=== PATIENT | male | born 1955 | race Caucasian/White ===

== ENCOUNTER 2020-02-18 08:54 | Outpatient (REF) | payer MEDICARE, MEDICAID, SELFPAY ==
[2020-02-18 11:34] LABS: Glucose Urine UA NEG (NEG); Leukocyte Esterase Urine NEG (NEG); Nitrite Urine NEG (NEG); Urine Blood NEG (NEG); Urine Ketones NEG (NEG); Urine Protein 2+ MG/DL (NEG-TRACE)
[2020-02-18 11:36] LABS: Anion Gap 12 (12-20); Blood Urea Nitrogen 13 mg/dL (9-16); Carbon Dioxide 30 mmol/L (22-29); Chloride 103 mmol/L (96-108); Estimated Glomerular Filt Rate > 60; Phosphorus 2.9 mg/dL (2.7-4.5); Potassium 4.2 mmol/l (3.3-5.1); Sodium 141 mmol/L (135-145)
[2020-02-18 11:51] LABS: Appearance Urine HAZY; Color Urine YELLOW
[2020-02-18 12:10] LABS: Renal w Reflex Lab Use Only Order verified
[2020-02-18 12:23] LABS: Microalbum/Creatinine Ratio Ur 882.8 ug/mg cr
[2020-02-18 13:34] LABS: RBC Urine 0 /HPF (0); Sperm Urine NOTED; WBC Urine 0-2 /HPF (0-4)
== END 2020-02-18 08:55 | disposition home or self-care (01) ==
LOC: HO.LAB 08:54
PROVIDERS: PCP Family Medicine; Visit Provider Internal Medicine Nephrology
DX: E11.21 Type 2 diabetes mellitus with diabetic nephropathy (principal); R80.9 Proteinuria, unspecified
CPT/HCPCS: 80051; 81001; 81003; 82043; 82310; 82565; 84100; 84520

== ENCOUNTER 2020-02-29 09:21 | Outpatient (REF) | payer MEDICARE, MEDICAID, SELFPAY ==
[2020-02-29 11:34] LABS: Anion Gap 12 (12-20); Blood Urea Nitrogen 14 mg/dL (9-16); Calcium 8.8 mg/dL (8.4-10.2); Carbon Dioxide 29 mmol/L (22-29); Chloride 103 mmol/L (96-108); Estimated Glomerular Filt Rate > 60; Glucose Random 159 mg/dL (60-115); Potassium 4.4 mmol/l (3.3-5.1); Sodium 140 mmol/L (135-145)
== END 2020-02-29 09:22 | disposition home or self-care (01) ==
LOC: HO.LAB 09:21
PROVIDERS: PCP Family Medicine; Referring Provider Family Medicine; Visit Provider Internal Medicine Cardiovascular Disease
DX: I51.3 Intracardiac thrombosis, not elsewhere classified (principal); Z45.02 Encounter for adjustment and management of automatic implantable cardiac defibrillator; I48.0 Paroxysmal atrial fibrillation; Z86.79 Personal history of other diseases of the circulatory system
CPT/HCPCS: 80048; 99212

== ENCOUNTER 2020-04-05 08:44 | Outpatient (REF) | payer MEDICARE, MEDICAID, SELFPAY ==
[2020-04-05 10:08] LABS: Estimated Average Glucose 194 mg/dL; Hemoglobin A1c % 8.4 %
[2020-04-05 10:17] LABS: Alanine Aminotransferase 15 U/L (0-40); Albumin Level 4.2 g/dL (3.5-5.0); Alkaline Phosphatase 68 U/L (39-117); Anion Gap 12 (12-20); Aspartate Amino Transferase 15 U/L (5-37); Bilirubin Total 0.6 mg/dL (0.0-1.0); Blood Urea Nitrogen 16 mg/dL (9-16); Calcium 9.2 mg/dL (8.4-10.2); Carbon Dioxide 29 mmol/L (22-29); Chloride 102 mmol/L (96-108); Cholesterol 93 mg/dL; Estimated Glomerular Filt Rate > 60; Glucose Random 160 mg/dL (60-115); HDL Cholesterol 35 mg/dL; LDL Cholesterol Calculated 38 mg/dl; Potassium 4.4 mmol/l (3.3-5.1); Sodium 139 mmol/L (135-145); Total Protein 7.1 g/dL (6.5-8.0); Triglycerides 104 mg/dL
[2020-04-05 10:45] LABS: Creatinine Urine 76.83 mg/dL
[2020-04-05 10:57] LABS: Microalbum/Creatinine Ratio Ur 905.8 ug/mg cr
[2020-04-07 04:17] LABS: LDL Cholesterol Direct 40 mg/dL (<100)
== END 2020-04-05 08:45 | disposition home or self-care (01) ==
LOC: HO.LAB 08:44
PROVIDERS: PCP Family Medicine; Visit Provider Internal Medicine
DX: E11.65 Type 2 diabetes mellitus with hyperglycemia (principal); E78.5 Hyperlipidemia, unspecified; I10 Essential (primary) hypertension
CPT/HCPCS: 80053; 80061; 82043; 83036; 83721

== ENCOUNTER → 2020-04-18 08:24 | Outpatient (BNVA) | payer MEDICARE, MEDICAID, SELFPAY | PROVIDERS: PCP Family Medicine; Referring Provider Family Medicine; Visit Provider Internal Medicine | DX: Z13.89 Encounter for screening for other disorder (principal) | CPT/HCPCS: Q3014 ==

== ENCOUNTER → 2020-07-04 10:58 | Outpatient (BNVA) | payer MEDICARE, MEDICAID, SELFPAY | PROVIDERS: PCP Family Medicine; Visit Provider Internal Medicine | DX: Z13.89 Encounter for screening for other disorder (principal) | CPT/HCPCS: Q3014 ==

== ENCOUNTER 2020-07-05 08:33 | Outpatient (REF) | payer MEDICARE, MEDICAID, SELFPAY ==
[2020-07-05 09:30] LABS: Estimated Average Glucose 232 mg/dL; Hemoglobin A1c % 9.7 %
[2020-07-05 09:59] LABS: Alanine Aminotransferase 13 U/L (0-40); Albumin Level 3.9 g/dL (3.5-5.0); Alkaline Phosphatase 81 U/L (39-117); Anion Gap 11 (12-20); Aspartate Amino Transferase 15 U/L (5-37); Bilirubin Total 0.5 mg/dL (0.0-1.0); Blood Urea Nitrogen 20 mg/dL (9-16); Calcium 8.9 mg/dL (8.4-10.2); Carbon Dioxide 30 mmol/L (22-29); Chloride 105 mmol/L (96-108); Cholesterol 89 mg/dL; Estimated Glomerular Filt Rate > 60; Glucose Random 131 mg/dL (60-115); HDL Cholesterol 32 mg/dL; LDL Cholesterol Calculated 39 mg/dl; Potassium 4.2 mmol/L (3.3-5.1); Sodium 142 mmol/L (135-145); Total Protein 6.7 g/dL (6.5-8.0); Triglycerides 91 mg/dL
[2020-07-05 10:18] LABS: Vitamin D 25-OH Total 28.2 ng/mL (>30)
[2020-07-05 10:26] LABS: Creatinine Urine 146.09 mg/dL
[2020-07-05 10:41] LABS: Microalbum/Creatinine Ratio Ur 753.6 ug/mg cr
[2020-07-06 12:56] LABS: LDL Cholesterol Direct 37 mg/dL (<100)
== END 2020-07-05 08:34 | disposition home or self-care (01) ==
LOC: HO.LAB 08:33
PROVIDERS: Absent Provider Internal Medicine; PCP Family Medicine; Visit Provider Internal Medicine Cardiovascular Disease
DX: E11.65 Type 2 diabetes mellitus with hyperglycemia (principal); E55.9 Vitamin D deficiency, unspecified; Z79.4 Long term (current) use of insulin
CPT/HCPCS: 36415; 80053; 80061; 82043; 82306; 83036; 83721

== ENCOUNTER → 2020-07-06 09:05 | Outpatient (REF) | payer MEDICARE, MEDICAID, SELFPAY ==
--- NOTE | 2020-07-06 09:09 | CA_ITS ---
Transthoracic Echocardiogram Patient (Last, First, Middle): Shaka Kang A Gender: Male Date of : 1955 Age: 65 Procedure Date: 07/06/2020 Procedure Type: Transthoracic Echocardiogram Location: OP Height: 182.88 cm Weight: 58.97 kg BSA: 1.77 m2 Heart Rate: bpm BP: 126 / 80 mmHg Brush Hand: ROD Referring MD: Gabriel Cassidy MD Tariff Clerk: Gabriel Cassidy MD Symptoms: I51.3 - Intracardiac thrombosis, not elsewhere classified Study Quality: Good ECG Rhythm: Sinus Conclusions: - 1. Normal LV systolic function with grade 1 diastolic dysfunction 2. Normal cardiac valvular Doppler 3. Normal RV systolic pressure 4. No pericardial effusion Findings Left Ventricle Normal left ventricular size, thickness, and systolic function. The visually estimated ejection fraction is between 55-60%. Spectral Doppler is indicative of an impaired relaxation filling pattern. E/E prime ratio is <8, consistent with normal filling pressures. Evidence suggests grade I (mild) diastolic dysfunction. Right Ventricle Normal right ventricular cavity size and systolic function. There is an ICD wire seen in the right ventricle. Atria Both atria are normal in size. There is no evidence of interatrial shunt. Aortic Valve Normal aortic valve structure and function. There is no aortic valve stenosis. There is no aortic valve regurgitation. Mitral Valve Normal mitral valve structure and function. There is trace mitral valve regurgitation. There is no mitral valve stenosis. Pulmonic Valve The pulmonic valve is likely normal. There is trace pulmonic valve regurgitation. Tricuspid Valve Normal tricuspid valve structure. There is mild tricuspid valve regurgitation. The right ventricular systolic pressure is normal. The right ventricular systolic pressure is 13 mmHg. Normal right atrial pressure. There is no evidence of pulmonary hypertension. Great Vessels All visible segments of the aorta are normal in size. The pulmonary artery was not well visualized. Venous The inferior vena cava is normal in size and collapses greater than 50% with inspiration. Pericardium/Pleural There is no evidence of pericardial effusion. Prior Study Comparison No significant change compared to prior study dated: 10/20/2019. Measurements 2D Systolic Function EF 4C: 66.00 >55% EF 2C: 37.20 >55% EF BiP: 55.10 >55% Tricuspid Valve TR Pk Yung: 1.56 TR Pk Grad: 10.00 RA Press: 3.00 RVSP: 13.00 Updated in Other Vendor System with Status of Final Gabriel Cassidy MD electronically signed on 07/06/2020 4:27:24 PM with status of Final
== END ==
LOC: HO.CARD 09:05
PROVIDERS: PCP Family Medicine; Visit Provider Internal Medicine Cardiovascular Disease
DX: I48.0 Paroxysmal atrial fibrillation (principal); I51.3 Intracardiac thrombosis, not elsewhere classified; Z95.810 Presence of automatic (implantable) cardiac defibrillator
CPT/HCPCS: 93308

== ENCOUNTER 2020-08-26 08:17 | Outpatient (REF) | payer MEDICARE, MEDICAID, SELFPAY ==
[2020-08-26 10:16] LABS: Anion Gap 12 (12-20); Blood Urea Nitrogen 11 mg/dL (9-16); Calcium 8.7 mg/dL (8.4-10.2); Carbon Dioxide 29 mmol/L (22-29); Chloride 103 mmol/L (96-108); Estimated Glomerular Filt Rate > 60; Phosphorus 2.9 mg/dL (2.7-4.5); Potassium 4.1 mmol/L (3.3-5.1); Sodium 140 mmol/L (135-145)
[2020-08-26 11:17] LABS: Creatinine Urine 58.91 mg/dL; Microalbum/Creatinine Ratio Ur 1281.6 ug/mg cr
[2020-08-26 13:34] LABS: Renal w Reflex Lab Use Only Order verified
== END 2020-08-26 08:18 | disposition home or self-care (01) ==
LOC: HO.LAB 08:17
PROVIDERS: Absent Provider Internal Medicine Nephrology; PCP Family Medicine; Visit Provider Internal Medicine
DX: R80.9 Proteinuria, unspecified (principal); E11.21 Type 2 diabetes mellitus with diabetic nephropathy
CPT/HCPCS: 36415; 80051; 82043; 82310; 82565; 84100; 84520

== ENCOUNTER → 2020-09-05 08:44 | Outpatient (BNVA) | payer MEDICARE, MEDICAID, SELFPAY | PROVIDERS: PCP Family Medicine; Visit Provider Internal Medicine Cardiovascular Disease | DX: Z45.02 Encounter for adjustment and management of automatic implantable cardiac defibrillator (principal); I48.0 Paroxysmal atrial fibrillation; Z86.79 Personal history of other diseases of the circulatory system | CPT/HCPCS: 99212 ==

== ENCOUNTER → 2020-10-05 12:18 | Outpatient (BNVA) | payer MEDICARE, MEDICAID, SELFPAY | PROVIDERS: PCP Family Medicine; Visit Provider Internal Medicine | DX: E11.65 Type 2 diabetes mellitus with hyperglycemia (principal); Z79.4 Long term (current) use of insulin; E78.5 Hyperlipidemia, unspecified; E55.9 Vitamin D deficiency, unspecified; I10 Essential (primary) hypertension | CPT/HCPCS: 82947; 83036; 99212 ==

== ENCOUNTER 2020-10-13 08:33 | Outpatient (REF) | payer MEDICARE, MEDICAID, SELFPAY ==
[2020-10-13 10:11] LABS: Estimated Average Glucose 237 mg/dL; Hemoglobin A1c % 9.9 %
[2020-10-13 10:35] LABS: Alanine Aminotransferase 19 U/L (0-40); Albumin Level 4.5 g/dL (3.5-5.0); Alkaline Phosphatase 75 U/L (39-117); Anion Gap 11 (12-20); Aspartate Amino Transferase 20 U/L (5-37); Bilirubin Total 0.3 mg/dL (0.0-1.0); Blood Urea Nitrogen 13 mg/dL (9-16); Calcium 9.5 mg/dL (8.4-10.2); Carbon Dioxide 29 mmol/L (22-29); Chloride 107 mmol/L (96-108); Estimated Glomerular Filt Rate > 60; Glucose Random 139 mg/dL (60-115); Potassium 5.1 mmol/L (3.3-5.1); Sodium 142 mmol/L (135-145); Total Protein 7.3 g/dL (6.5-8.0)
== END 2020-10-13 08:34 | disposition home or self-care (01) ==
LOC: HO.LAB 08:33
PROVIDERS: PCP Family Medicine; Visit Provider Internal Medicine
DX: E11.65 Type 2 diabetes mellitus with hyperglycemia (principal); Z79.4 Long term (current) use of insulin
CPT/HCPCS: 36415; 80053; 83036

== ENCOUNTER 2020-12-01 12:47 | Outpatient (RCR) | payer MEDICARE, MEDICAID, SELFPAY | END 2020-12-13 15:10 | disposition home or self-care (01) | LOC: HO.WCC 12:47 | PROVIDERS: PCP Family Medicine; Visit Provider Surgery | DX: L89.621 Pressure ulcer of left heel, stage 1 (principal) | CPT/HCPCS: 99212 ==

== ENCOUNTER 2021-01-05 07:35 | Outpatient (REF) | payer MEDICARE, MEDICAID, SELFPAY ==
[2021-01-05 08:26] LABS: Alanine Aminotransferase 19 U/L (0-40); Albumin Level 4.1 g/dL (3.5-5.0); Alkaline Phosphatase 70 U/L (39-117); Anion Gap 12 (12-20); Aspartate Amino Transferase 18 U/L (5-37); Bilirubin Total 0.6 mg/dL (0.0-1.0); Blood Urea Nitrogen 16 mg/dL (9-16); Calcium 9.2 mg/dL (8.4-10.2); Carbon Dioxide 28 mmol/L (22-29); Chloride 104 mmol/L (96-108); Estimated Glomerular Filt Rate > 60; Glucose Random 103 mg/dL (60-115); Potassium 4.2 mmol/L (3.3-5.1); Sodium 140 mmol/L (135-145); Total Protein 6.6 g/dL (6.5-8.0)
[2021-01-05 08:46] LABS: Estimated Average Glucose 186 mg/dL; Hemoglobin A1c % 8.1 %
[2021-01-05 08:47] LABS: Vitamin D 25-OH Total 25.4 ng/mL (>30)
== END 2021-01-05 07:36 | disposition home or self-care (01) ==
LOC: HO.LAB 07:35
PROVIDERS: PCP Family Medicine; Visit Provider Internal Medicine
DX: E55.9 Vitamin D deficiency, unspecified (principal); E11.65 Type 2 diabetes mellitus with hyperglycemia; Z79.4 Long term (current) use of insulin
CPT/HCPCS: 36415; 80053; 82306; 83036

== ENCOUNTER → 2021-01-09 12:46 | Outpatient (BNVA) | payer MEDICARE, MEDICAID, SELFPAY | PROVIDERS: PCP Family Medicine; Visit Provider Internal Medicine | DX: E11.65 Type 2 diabetes mellitus with hyperglycemia (principal); E78.5 Hyperlipidemia, unspecified; E55.9 Vitamin D deficiency, unspecified; I10 Essential (primary) hypertension; Z79.4 Long term (current) use of insulin | CPT/HCPCS: 82947; 99212 ==

== ENCOUNTER → 2021-02-21 12:37 | Outpatient (BNVA) | payer MEDICARE, MEDICAID, SELFPAY | PROVIDERS: PCP Family Medicine; Referring Provider Family Medicine; Visit Provider Internal Medicine Cardiovascular Disease | DX: Z45.02 Encounter for adjustment and management of automatic implantable cardiac defibrillator (principal); I48.0 Paroxysmal atrial fibrillation; Z86.79 Personal history of other diseases of the circulatory system | CPT/HCPCS: 93005; 99212 ==

== ENCOUNTER 2021-03-27 08:36 | Outpatient (REF) | payer MEDICARE, MEDICAID, SELFPAY ==
[2021-03-27 09:31] LABS: Estimated Average Glucose 194 mg/dL; Hemoglobin A1c % 8.4 %
[2021-03-27 12:49] LABS: Creatinine Urine 115.07 mg/dL; Microalbum/Creatinine Ratio Ur 1524.2 ug/mg cr
[2021-03-27 12:53] LABS: Creatinine Urine 113.69 mg/dL; Protein/Creatinine Ratio, Ur 2.06 (<0.2); Total Protein Urine Random 234 mg/dL (<12)
[2021-03-27 13:20] LABS: Alanine Aminotransferase 22 U/L (0-40); Albumin Level 4.4 g/dL (3.5-5.0); Alkaline Phosphatase 81 U/L (39-117); Anion Gap 16 (12-20); Aspartate Amino Transferase 20 U/L (5-37); Bilirubin Total 0.5 mg/dL (0.0-1.0); Blood Urea Nitrogen 22 mg/dL (9-16); Calcium 9.6 mg/dL (8.4-10.2); Carbon Dioxide 25 mmol/L (22-29); Chloride 104 mmol/L (96-108); Cholesterol 116 mg/dL; Estimated Glomerular Filt Rate > 60; Glucose Random 112 mg/dL (60-115); HDL Cholesterol 48 mg/dL; LDL Cholesterol Calculated 51 mg/dl; Potassium 4.5 mmol/L (3.3-5.1); Sodium 140 mmol/L (135-145); Total Protein 7.5 g/dL (6.5-8.0); Triglycerides 85 mg/dL
[2021-03-28 07:48] LABS: LDL Cholesterol Direct 46 mg/dL (<100)
== END 2021-03-27 08:37 | disposition home or self-care (01) ==
LOC: HO.LAB 08:36
PROVIDERS: Absent Provider Internal Medicine Nephrology; Visit Provider Internal Medicine
DX: E11.21 Type 2 diabetes mellitus with diabetic nephropathy (principal); E11.65 Type 2 diabetes mellitus with hyperglycemia; R80.8 Other proteinuria; Z79.4 Long term (current) use of insulin
CPT/HCPCS: 36415; 80053; 80061; 82043; 83036; 83721; 84156; 84165

== ENCOUNTER → 2021-07-12 10:35 | Outpatient (BNVA) | payer MEDICARE, MEDICAID, SELFPAY | PROVIDERS: PCP Family Medicine; Visit Provider Internal Medicine | DX: E11.65 Type 2 diabetes mellitus with hyperglycemia (principal); E78.5 Hyperlipidemia, unspecified; E55.9 Vitamin D deficiency, unspecified; I10 Essential (primary) hypertension; Z79.4 Long term (current) use of insulin | CPT/HCPCS: 82947; 83036; 99212 ==

== ENCOUNTER → 2021-07-21 09:06 | Outpatient (REF) | payer MEDICARE, MEDICAID, SELFPAY ==
--- NOTE | 2021-07-21 09:13 | CA_ITS ---
Transthoracic Echocardiogram Patient (Last, First, Middle): Shaka Kang A Gender: Male Date of : 1955 Age: 66 Procedure Date: 07/21/2021 Procedure Type: Transthoracic Echocardiogram Location: OP Height: 182.88 cm Weight: 60.78 kg BSA: 1.80 m2 Heart Rate: bpm BP: 120 / 80 mmHg Retread Technician: GEORGINA Referring MD: Gabriel Cassidy MD Symptoms: Z86.79 - Personal history of other diseases of the circul... Study Quality: Good Conclusions: - The left ventricular systolic function is low normal. The visually estimated ejection fraction is between 50-55%. - Mildly increased right ventricular cavity size. There is normal right ventricular systolic function. There is a pacemaker wire seen in the right ventricle. - There is a 1 cm x 1.32 cm mobile structure attached to the pacemaker/ICD lead with differential of clot vs vegetation. Findings Left Ventricle Normal left ventricular cavity size. There is normal left ventricular wall thickness. The left ventricular systolic function is low normal. The visually estimated ejection fraction is between 50-55%. Abnormal diastolic function is noted. Spectral Doppler is indicative of an impaired relaxation filling pattern. E/E prime ratio is between 8 and 15 consistent with indeterminate filling pressures. Right Ventricle Mildly increased right ventricular cavity size. There is normal right ventricular systolic function. There is a pacemaker wire seen in the right ventricle. Atria Both atria are normal in size. There is a 1 cm x 1.32 cm mobile structure attached to the pacemaker/ICD lead with differential of clot vs vegetation. Aortic Valve Normal aortic valve structure and function. There is no aortic valve stenosis. There is no aortic valve regurgitation. Mitral Valve The mitral valve appears normal. There is no mitral valve regurgitation. There is no mitral valve stenosis. Pulmonic Valve Normal pulmonic valve structure and function. There is trace pulmonic valve regurgitation. Tricuspid Valve Normal tricuspid valve structure and function. There is trace tricuspid valve regurgitation. Normal right atrial pressure. There is no evidence of pulmonary hypertension. Great Vessels There is mild dilatation of the ascending aorta measuring 3.70 cm. The visualized portions of the pulmonary artery and branches are normal. Venous The inferior vena cava is normal in size and collapses greater than 50% with inspiration. Pericardium/Pleural There is no evidence of pericardial effusion. Prior Study Comparison Changes noted compared to prior study dated: 07/06/2020. Low normal LVEF, mildly dilated RV, 1 cm x 1.32 mass attached to pacemaker/ICD lead. Measurements 2D Linear Measurements IVSd: 1.09 0.6-0.9/0.6-1.0 cm LVIDd: 4.47 3.9-5.3/4.2-5.9 cm LVIDd Index: 2.48 2.4-3.2/2.2-3.1 cm/m2 LVIDs: 2.95 2.0-3.6 cm LVPWd: 0.89 0.7-1.1 cm LA Diam: 3.30 2.7-3.8/3.0-4.0 cm LAIDs Index: 1.83 1.5-2.3 cm/m2 LV Mass: 186.05 67-162/88-224 g LV Mass Index: 103.36 43-95/49-115 g/m2 LVOT Diam: 2.50 3.0+(-)1.3 cm 2D Systolic Function EF 4C: 57.90 >55% EF 2C: 52.90 >55% EF BiP: 55.40 >55% Mitral Valve MV Pk E: 0.48 MV PK A: 0.67 MV Decel Time: 182.00 E/A: 0.70 E'Lateral: 4.03 E'Medial: 4.68 E/E' Med: 10.30 E/E' Lat: 12.00 PHT: 53.00 MVA PHT: 4.15 Decel Mayes: 2.65 Aortic Valve AoV Pk Yung: 0.95 AoV Mn Yung: 0.66 AoV VTI: 0.18 AoV Pk Grad: 4.00 Aov Mn Grad: 2.00 AMY Cont.VTI: 4.24 LVOT LVOT Pk Yung: 0.78 LVOT Mn Yung: 0.47 LVOT VTI: 0.15 LVOT Pk Grad: 2.00 LVOT Mn Grad: 1.00 LVOT Diam: 2.50 LVOT Area: 4.91 Diastolic Function MV Pk E: 0.48 MV Pk A: 0.67 E/A: 0.70 E'Medial: 4.68 E/E' Med: 10.30 E' Laterial: 4.03 E/E' Lat: 12.00 Right Ventricle TAPSE (mm): 17.80 TVS' Yung: 10.90 Tricuspid Valve TR Pk Yung: 2.38 TR Pk Grad: 23.00 RA Press: 3.00 RVSP: 26.00 Great Vessels Aorta Ao Asc: 3.70 2.1-3.4 cm Ao Arch: 3.30 Updated in Other Vendor System with Status of Final Sameer Tay MD electronically signed on 07/23/2021 8:40:50 PM with status of Final
== END ==
LOC: HO.CARD 09:06
PROVIDERS: PCP Family Medicine; Visit Provider Internal Medicine Cardiovascular Disease
DX: I48.0 Paroxysmal atrial fibrillation (principal); Z86.79 Personal history of other diseases of the circulatory system
CPT/HCPCS: 93306

== ENCOUNTER → 2021-08-08 08:53 | Outpatient (BNVA) | payer MEDICARE, MEDICAID, SELFPAY | PROVIDERS: PCP Family Medicine; Referring Provider Family Medicine; Visit Provider Internal Medicine Cardiovascular Disease | DX: I48.0 Paroxysmal atrial fibrillation (principal); Z45.02 Encounter for adjustment and management of automatic implantable cardiac defibrillator; Z86.79 Personal history of other diseases of the circulatory system; Z79.01 Long term (current) use of anticoagulants; Z79.899 Other long term (current) drug therapy | CPT/HCPCS: 99212 ==

== ENCOUNTER 2021-10-02 08:20 | Outpatient (REF) | payer MEDICARE, MEDICAID, SELFPAY ==
[2021-10-02 09:33] LABS: Anion Gap 13 (12-20); Blood Urea Nitrogen 26 mg/dL (9-16); Calcium 9.6 mg/dL (8.4-10.2); Carbon Dioxide 28 mmol/L (22-29); Chloride 102 mmol/L (96-108); Estimated Glomerular Filt Rate > 60; Potassium 5.3 mmol/L (3.3-5.1); Sodium 138 mmol/L (135-145)
[2021-10-02 11:17] LABS: Creatinine Urine 105.56 mg/dL; Protein/Creatinine Ratio, Ur 0.46 (<0.2); Total Protein Urine Random 49 mg/dL (<12)
[2021-10-03 21:27] LABS: Prot Elec - Albumin 3.7 g/dL (3.8-4.8); Prot Elec - Alpha1 0.2 g/dL (0.2-0.3); Prot Elec - Alpha2 0.9 g/dL (0.5-0.9); Prot Elec - Beta 1 0.5 g/dL (0.4-0.6); Prot Elec - Beta 2 0.4 g/dL (0.2-0.5); Prot Elec - Gamma 1.1 g/dL (0.8-1.7); Prot Elec - Total Protein 6.8 g/dL (6.1-8.1)
== END 2021-10-02 08:21 | disposition home or self-care (01) ==
LOC: HO.LAB 08:20
PROVIDERS: Absent Provider Internal Medicine Nephrology; PCP Family Medicine; Visit Provider Internal Medicine
DX: E11.21 Type 2 diabetes mellitus with diabetic nephropathy (principal)
CPT/HCPCS: 36415; 80051; 82310; 82565; 84156; 84165; 84520

== ENCOUNTER 2021-11-20 07:05 | Outpatient (REF) | payer MEDICARE, MEDICAID, SELFPAY ==
--- NOTE | ~2021-11-20 | CT_ITS ---
EXAMINATION: CT CHEST, ABDOMEN AND PELVIS WITHOUT CONTRAST. CLINICAL INFORMATION: Nicotine dependence and abnormal weight loss. COMPARISON: CT chest 09/18/2018. TECHNIQUE: 5 mm thin axial and reformatted 3 mm thin sagittal coronal images of chest, abdomen and pelvis were obtained without contrast. DLP 364 mGy-cm FINDINGS: CHEST: LUNGS: The lungs are well-expanded and clear of acute pneumonic process. There is a 3 mm linear density of right upper lobe medially axial image 20/4. No consolidation is seen. There is no focal nodule, mass or ground-glass density. MEDIASTINUM: The thyroid lobes are symmetric and normal. The central trachea and the bronchi are widely patent. Heart size and the great vessels are of normal caliber. There are pacemaker electrodes in the right ventricle. No abnormal sized mediastinal or hilar lymph nodes are seen. No pericardial effusion. Trace coronary artery calcification seen. PLEURA: No pleural thickening, effusion or calcification. AXILLA: No abnormal axillary lymph nodes. There is pacer hardware in the left upper chest wall. OSSEOUS STRUCTURES: No lytic or sclerotic process seen. There is minimal scoliosis. ABDOMEN AND PELVIS: LIVER, DUCTS AND GALLBLADDER: The liver is homogeneous in density, is of normal size and contour. No focal lesion or intrahepatic ductal dilatation is seen. The gallbladder is unremarkable. SPLEEN: Unremarkable PANCREAS: Unremarkable. BILATERAL ADRENAL GLANDS AND KIDNEYS: Bilateral adrenal glands are symmetrical and are of normal size and density. Both kidneys are of normal size, shape and position. No radiopaque renal calculi or hydroureteronephrosis is seen. A prominent left renal extrarenal pelvis is noted. LYMPHOVASCULAR STRUCTURES: The abdominal aorta is of normal caliber. No abnormally sized retroperitoneal lymph nodes or masses are seen. GI TRACT: There is a large amount of stool in the colon restricting evaluation. The small bowel loops are of normal caliber. The small bowel loops are slightly prominent but no signs of obstruction or narrowing. Appendix is of normal caliber. No inflammatory process, free fluid or free air seen in the abdomen. PELVIS: The bladder is nondistended. The prostate gland is enlarged with punctate central gland calcification. No free fluid is seen. No abnormal pelvic or inguinal lymph nodes are visualized. OSSEOUS STRUCTURES: There is mild scoliosis. There are degenerative disc changes at the L5-S1 disc level with vacuum disc phenomena and spondylosis. ABDOMINAL WALL: Unremarkable. CT/CT abdomen pelvis wo con IMPRESSION: The 3 mm density in the right upper lobe medially is stable. No new nodules, abnormal mediastinal or axillary adenopathy seen. No change in a solitary pacer electrode tip in the right ventricle since the last study. Moderate to significant constipation restricting evaluation of colon. Thoracic and lumbar scoliosis.
== END 2021-11-20 07:06 | disposition home or self-care (01) ==
LOC: HO.CT 07:05
PROVIDERS: PCP Family Medicine; Visit Provider Family Medicine
DX: J44.9 Chronic obstructive pulmonary disease, unspecified (principal); R63.4 Abnormal weight loss; F17.200 Nicotine dependence, unspecified, uncomplicated
CPT/HCPCS: 71250; 74176

== ENCOUNTER 2022-01-25 08:22 | Outpatient (REF) | payer MEDICARE, MEDICAID, SELFPAY ==
[2022-01-25 09:30] LABS: Estimated Average Glucose 177 mg/dL; Hemoglobin A1c % 7.8 %
[2022-01-25 09:55] LABS: Alanine Aminotransferase 24 U/L (0-40); Albumin Level 4.8 g/dL (3.5-5.0); Alkaline Phosphatase 93 U/L (39-117); Anion Gap 16 (12-20); Aspartate Amino Transferase 24 U/L (5-37); Bilirubin Total 0.4 mg/dL (0.0-1.0); Blood Urea Nitrogen 25 mg/dL (9-16); Calcium 10.2 mg/dL (8.4-10.2); Carbon Dioxide 24 mmol/L (22-29); Chloride 99 mmol/L (96-108); Estimated Glomerular Filt Rate > 60; Glucose Random 108 mg/dL (60-115); Potassium 5.3 mmol/L (3.3-5.1); Sodium 134 mmol/L (135-145); Total Protein 8.1 g/dL (6.5-8.0)
[2022-01-25 10:04] LABS: Anion Gap 20 (12-20); Blood Urea Nitrogen 25 mg/dL (9-16); Calcium 10.3 mg/dL (8.4-10.2); Carbon Dioxide 24 mmol/L (22-29); Chloride 103 mmol/L (96-108); Estimated Glomerular Filt Rate > 60; Potassium 5.6 mmol/L (3.3-5.1); Sodium 141 mmol/L (135-145)
[2022-01-25 10:19] LABS: Vitamin D 25-OH Total 32.9 ng/mL (>30)
[2022-01-25 11:01] LABS: Vitamin B12 433 pg/mL (200-900)
== END 2022-01-25 08:23 | disposition home or self-care (01) ==
LOC: HO.LAB 08:22
PROVIDERS: Internal Medicine; PCP Family Medicine; Visit Provider Internal Medicine Nephrology
DX: E11.21 Type 2 diabetes mellitus with diabetic nephropathy (principal); E11.65 Type 2 diabetes mellitus with hyperglycemia; E55.9 Vitamin D deficiency, unspecified; Z79.4 Long term (current) use of insulin
CPT/HCPCS: 36415; 80051; 80053; 82306; 82310; 82565; 82607; 83036; 84520

== ENCOUNTER 2022-01-31 08:12 | Outpatient (REF) | payer MEDICARE, MEDICAID, SELFPAY ==
[2022-01-31 09:31] LABS: Anion Gap 18 (12-20); Blood Urea Nitrogen 23 mg/dL (9-16); Calcium 10.2 mg/dL (8.4-10.2); Carbon Dioxide 24 mmol/L (22-29); Chloride 102 mmol/L (96-108); Estimated Glomerular Filt Rate > 60; Glucose Random 179 mg/dL (60-115); Potassium 5.3 mmol/L (3.3-5.1); Sodium 139 mmol/L (135-145)
[2022-01-31 10:25] LABS: Cortisol Random 13.8 ug/dL
[2022-02-02 20:46] LABS: Adrenocorticotropic Hormone 28 pg/mL (6-50)
== END 2022-01-31 08:13 | disposition home or self-care (01) ==
LOC: HO.LAB 08:12
PROVIDERS: PCP Family Medicine; Visit Provider Internal Medicine
DX: E11.65 Type 2 diabetes mellitus with hyperglycemia (principal); Z79.4 Long term (current) use of insulin
CPT/HCPCS: 36415; 80048; 82024; 82533

== ENCOUNTER 2022-02-02 10:20 | Emergency (ER) | payer MEDICARE, MEDICAID, SELFPAY ==
[2022-02-02 11:47] VITALS: BP 109/67; PULSE 82; RESP 16; O2SAT 99; BMI 16.2
[2022-02-02 13:05] LABS: MANUAL DIFF FLAG NO
[2022-02-02 13:06] LABS: Basophils Absolute Auto 0.1 X10*3/uL (0.0-0.2); Basophils Percent Auto 0.7 % (0-2); Eosinophils Absolute Auto 0.3 X10*3/uL (0.0-0.4); Eosinophils Percent Auto 3.7 % (0-4); Hematocrit 45.8 % (42.0-52.0); Hemoglobin 14.9 g/dl (14.0-18.0); Imm Gran Abs Auto 0.02 X10*3/uL (0.00-0.03); Imm Gran Pct Auto 0.2 % (0.0-0.4); Lymphocytes Percent Auto 23.9 % (20-40); Mean Corpuscular HGB Conc 32.5 g/dl (31.0-36.0); Mean Corpuscular Hemoglobin 32.5 pg (27.0-33.0); Mean Corpuscular Volume 99.8 fL (80.0-98.0); Mean Platelet Volume 10.1 fL (9.4-12.4); Monocytes Absolute Auto 0.9 X10*3/uL (0.1-1.2); Monocytes Percent Auto 10.9 % (2-11); Neutrophils Percent Auto 60.6 % (45-73); Platelet Count 141 X10*3/uL (160-400); Red Blood Count 4.59 X10*6/uL (4.60-5.80); Red Cell Distribution Width 13.5 % (11.0-16.0); White Blood Count 8.3 X10*3/uL (4.8-10.8)
[2022-02-02 13:27] LABS: Anion Gap 12 (12-20); Blood Urea Nitrogen 25 mg/dL (9-16); Calcium 9.3 mg/dL (8.4-10.2); Carbon Dioxide 29 mmol/L (22-29); Chloride 107 mmol/L (96-108); Creatinine Clr Calc Pharmacy 53.8; Estimated Glomerular Filt Rate > 60; Glucose Random 167 mg/dL (60-115); Potassium 5.8 mmol/L (3.3-5.1); Sodium 142 mmol/L (135-145)
== END 2022-02-02 16:43 | disposition left against medical advice (07) ==
PROVIDERS: Emergency Provider Emergency Medicine; PCP Family Medicine
DX: R79.89 Other specified abnormal findings of blood chemistry (principal)
CPT/HCPCS: 36415; 80048; 85025; 99281; 99283

== ENCOUNTER 2022-02-06 09:35 | Outpatient (REF) | payer MEDICARE, MEDICAID, SELFPAY ==
[2022-02-06 10:28] LABS: Potassium 4.6 mmol/L (3.3-5.1)
== END 2022-02-06 09:36 | disposition home or self-care (01) ==
LOC: HO.LAB 09:35
PROVIDERS: PCP Family Medicine; Referring Provider Family Medicine; Visit Provider Internal Medicine Cardiovascular Disease
DX: I48.0 Paroxysmal atrial fibrillation (principal); Z95.810 Presence of automatic (implantable) cardiac defibrillator; Z86.79 Personal history of other diseases of the circulatory system
CPT/HCPCS: 36415; 84132; 99212

== ENCOUNTER → 2022-04-09 10:01 | Outpatient (BNVA) | payer MEDICARE, MEDICAID, SELFPAY | PROVIDERS: PCP Family Medicine; Visit Provider Internal Medicine | DX: E11.65 Type 2 diabetes mellitus with hyperglycemia (principal); E78.5 Hyperlipidemia, unspecified; I10 Essential (primary) hypertension; Z79.4 Long term (current) use of insulin | CPT/HCPCS: 82947; 83036; 99212 ==

== ENCOUNTER 2022-04-17 08:19 | Outpatient (REF) | payer MEDICARE, MEDICAID, SELFPAY ==
[2022-04-17 09:35] LABS: Anion Gap 9 (12-20); Blood Urea Nitrogen 18 mg/dL (9-16); Calcium 9.6 mg/dL (8.4-10.2); Carbon Dioxide 32 mmol/L (22-29); Chloride 102 mmol/L (96-108); Estimated Glomerular Filt Rate > 60; Potassium 5.2 mmol/L (3.3-5.1); Sodium 138 mmol/L (135-145)
[2022-04-17 10:13] LABS: Creatinine Urine 72.49 mg/dL; Total Protein Urine Random 51 mg/dL (<12)
== END 2022-04-17 08:20 | disposition home or self-care (01) ==
LOC: HO.LAB 08:19
PROVIDERS: PCP Family Medicine; Visit Provider Internal Medicine Nephrology
DX: E11.21 Type 2 diabetes mellitus with diabetic nephropathy (principal)
CPT/HCPCS: 36415; 80051; 82310; 82565; 84156; 84520

== ENCOUNTER 2022-07-09 08:22 | Outpatient (REF) | payer MEDICARE, MEDICAID, SELFPAY ==
[2022-07-09 09:22] LABS: Estimated Average Glucose 243 mg/dL; Hemoglobin A1c % 10.1 %
[2022-07-09 10:15] LABS: Creatinine Urine 70.73 mg/dL; Microalbum/Creatinine Ratio Ur 428.3 ug/mg cr
[2022-07-09 10:30] LABS: Alanine Aminotransferase 16 U/L (0-40); Albumin Level 4.3 g/dL (3.5-5.0); Alkaline Phosphatase 88 U/L (39-117); Anion Gap 11 (12-20); Aspartate Amino Transferase 18 U/L (5-37); Bilirubin Total 0.7 mg/dL (0.0-1.0); Blood Urea Nitrogen 22 mg/dL (9-16); Calcium 9.3 mg/dL (8.4-10.2); Carbon Dioxide 29 mmol/L (22-29); Chloride 104 mmol/L (96-108); Cholesterol 110 mg/dL; Estimated Glomerular Filt Rate > 60; Glucose Random 169 mg/dL (60-115); HDL Cholesterol 36 mg/dL; LDL Cholesterol Calculated 50 mg/dl; Potassium 5.4 mmol/L (3.3-5.1); Sodium 139 mmol/L (135-145); Total Protein 7.1 g/dL (6.5-8.0); Triglycerides 120 mg/dL
[2022-07-09 10:46] LABS: Vitamin B12 450 pg/mL (200-900)
[2022-07-10 17:02] LABS: LDL Cholesterol Direct 46 mg/dL (<100)
== END 2022-07-09 08:23 | disposition home or self-care (01) ==
LOC: HO.LAB 08:22
PROVIDERS: Visit Provider Internal Medicine
DX: E11.65 Type 2 diabetes mellitus with hyperglycemia (principal); Z79.4 Long term (current) use of insulin
CPT/HCPCS: 36415; 80053; 80061; 82043; 82607; 83036; 83721

== ENCOUNTER → 2022-07-18 08:04 | Outpatient (BNVA) | payer MEDICARE, MEDICAID, SELFPAY | PROVIDERS: PCP Family Medicine; Visit Provider Internal Medicine | DX: E11.65 Type 2 diabetes mellitus with hyperglycemia (principal); Z79.4 Long term (current) use of insulin | CPT/HCPCS: 82947; 99212 ==

== ENCOUNTER → 2022-07-30 08:37 | Outpatient (REF) | payer MEDICARE, MEDICAID, SELFPAY ==
--- NOTE | 2022-07-30 08:40 | CA_ITS ---
Transthoracic Echocardiogram Patient (Last, First, Middle): Shaka Kang A Gender: Male Date of : 1955 Age: 67 Procedure Date: 07/30/2022 Procedure Type: Transthoracic Echocardiogram Location: OP Height: 187.96 cm Weight: 58.06 kg BSA: 1.80 m2 Heart Rate: 104 bpm BP: 100 / 68 mmHg Catalyst Operator Chief: SB Referring MD: Gabriel Cassidy MD Symptoms: Z86.79 - Personal history of other diseases of the circulatory system Study Quality: Adequate ECG Rhythm: Sinus tachycardia Conclusions: - The left ventricular systolic function is low normal. The calculated ejection fraction is 52% by biplane method. - No obvious valvular pathology seen on this study. - No definitive mass noted on pacer/ICD lead to the extent visualized. Findings Left Ventricle Normal left ventricular cavity size. The left ventricular systolic function is low normal. The calculated ejection fraction is 52% by biplane method. There is no evidence of regional wall motion abnormalities. Diastolic function is normal for age. There is mild septal asymmetric hypertrophy. LV peak GLS -8.2%. Markedly diminished. Right Ventricle Normal right ventricular cavity size. There is mildly decreased right ventricular systolic function. There is an ICD wire seen in the right ventricle. Atria Both atria are normal in size. Aortic Valve There is a normal trileaflet aortic valve. There is no aortic valve stenosis. There is no aortic valve regurgitation. Mitral Valve The mitral valve appears normal. There is trace mitral valve regurgitation. There is no mitral valve stenosis. Pulmonic Valve The pulmonic valve is likely normal. Tricuspid Valve There is mild tricuspid valve regurgitation. There is no evidence of pulmonary hypertension. Great Vessels The asc aorta is normal in size. Venous The inferior vena cava is normal in size and collapses greater than 50% with inspiration. Pericardium/Pleural There is no evidence of pericardial effusion. Prior Study Comparison Changes noted compared to prior study dated: 07/21/2021. See comments on lead. Recommendations, Care & Conclusions No obvious valvular pathology seen on this study. Measurements 2D Linear Measurements IVSd: 1.15 0.6-0.9/0.6-1.0 cm LVIDd: 4.33 3.9-5.3/4.2-5.9 cm LVIDd Index: 2.41 2.4-3.2/2.2-3.1 cm/m2 LVIDs: 2.51 2.0-3.6 cm LVPWd: 0.73 0.7-1.1 cm LA Diam: 2.90 2.7-3.8/3.0-4.0 cm LAIDs Index: 1.61 1.5-2.3 cm/m2 LV Mass: 164.87 67-162/88-224 g LV Mass Index: 91.60 43-95/49-115 g/m2 LVOT Diam: 2.40 3.0+(-)1.3 cm 2D Systolic Function EF 4C: 51.80 >55% EF 2C: 55.20 >55% EF BiP: 52.20 >55% Mitral Valve MV Pk E: 0.47 MV PK A: 0.76 E/A: 0.60 E'Lateral: 12.40 E/E' Lat: 3.80 Aortic Valve AoV Pk Yung: 0.85 AoV Pk Grad: 3.00 AMY: 4.16 LVOT LVOT Pk Yung: 0.77 LVOT Mn Yung: 0.51 LVOT VTI: 0.13 LVOT Pk Grad: 2.00 LVOT Mn Grad: 1.00 LVOT Diam: 2.40 LVOT Area: 4.52 Diastolic Function MV Pk E: 0.47 MV Pk A: 0.76 E/A: 0.60 E' Laterial: 12.40 E/E' Lat: 3.80 Right Ventricle TAPSE (mm): 14.60 TVS' Yung: 10.80 Tricuspid Valve TR Pk Yung: 2.51 TR Pk Grad: 25.00 RA Press: 3.00 RVSP: 28.00 Great Vessels Aorta Sinus of Valsalva: 4.10 2.0-3.5 cm Ao Asc: 3.60 2.1-3.4 cm Pulmonary Veins Pulm Vein S/D 1.90 Pulmonary Valve PV Pk Yung: 1.09 Peak PV Grad: 5.00 Updated in Other Vendor System with Status of Final William Beard MD electronically signed on 07/31/2022 4:05:43 PM with status of Final
== END ==
LOC: HO.CARD 08:37
PROVIDERS: PCP Family Medicine; Visit Provider Internal Medicine Cardiovascular Disease
DX: I48.0 Paroxysmal atrial fibrillation (principal); I51.3 Intracardiac thrombosis, not elsewhere classified; Z86.79 Personal history of other diseases of the circulatory system
CPT/HCPCS: 93306; 93356

== ENCOUNTER → 2022-08-21 09:02 | Outpatient (BNVA) | payer MEDICARE, MEDICAID, SELFPAY | PROVIDERS: PCP Family Medicine; Visit Provider Internal Medicine Cardiovascular Disease | DX: I51.3 Intracardiac thrombosis, not elsewhere classified (principal); I10 Essential (primary) hypertension; I48.0 Paroxysmal atrial fibrillation; E78.5 Hyperlipidemia, unspecified; F17.200 Nicotine dependence, unspecified, uncomplicated; Z95.810 Presence of automatic (implantable) cardiac defibrillator; Z86.79 Personal history of other diseases of the circulatory system | CPT/HCPCS: 99212 ==

== ENCOUNTER 2022-10-31 07:35 | Outpatient (REF) | payer MEDICARE, MEDICAID, SELFPAY ==
[2022-10-31 09:51] LABS: Alanine Aminotransferase 14 U/L (0-40); Alkaline Phosphatase 61 U/L (39-117); Anion Gap 12 (12-20); Aspartate Amino Transferase 18 U/L (5-37); Bilirubin Total 0.7 mg/dL (0.0-1.0); Blood Urea Nitrogen 20 mg/dL (9-16); Calcium 9.5 mg/dL (8.4-10.2); Carbon Dioxide 28 mmol/L (22-29); Chloride 106 mmol/L (96-108); Estimated Glomerular Filt Rate > 60; Glucose Random 83 mg/dL (60-115); Potassium 4.3 mmol/L (3.3-5.1); Sodium 142 mmol/L (135-145)
== END 2022-10-31 07:36 | disposition home or self-care (01) ==
LOC: HO.LAB 07:35
PROVIDERS: PCP Family Medicine; Visit Provider Internal Medicine
DX: E11.65 Type 2 diabetes mellitus with hyperglycemia (principal); Z79.4 Long term (current) use of insulin
CPT/HCPCS: 36415; 80053; 82043; 83036

== ENCOUNTER 2022-11-05 08:59 | Inpatient (IN) | payer MEDICARE, MEDICAID, SELFPAY ==
[2022-11-05] VITALS (11 sets, daily range): BP systolic 74–148; BP diastolic 45–85; PULSE 77–149; RESP 12–20; TEMP 35.9–36.7; O2SAT 90–98; BMI 17.0
--- NOTE | 2022-11-05 | ECG_ITS ---
Test Reason : tachy Blood Pressure : / mmHG Vent. Rate : 153 BPM Atrial Rate : 153 BPM P-R Int : 144 ms QRS Dur : 114 ms QT Int : 242 ms P-R-T Axes : 000 069 063 degrees QTc Int : 386 ms Atrial flutter with 2 to 1 block When compared with ECG of 19-SEP-2018 15:49, Vent. rate has increased BY 74 BPM Atrial flutter with 2 to 1 block has replaced Normal sinus rhythm Referred By: Porsche Craig Electronically Signed By:PEPITO VELÁSQUEZ MD
--- NOTE | 2022-11-05 | ECG_ITS ---
Test Reason : SOTALOL MONITORING Blood Pressure : / mmHG Vent. Rate : 087 BPM Atrial Rate : 087 BPM P-R Int : 142 ms QRS Dur : 088 ms QT Int : 358 ms P-R-T Axes : 035 050 055 degrees QTc Int : 430 ms Normal sinus rhythm with sinus arrhythmia Normal ECG When compared with ECG of 05-NOV-2022 11:44, No significant change was found Referred By: Porsche Craig Electronically Signed By:PEPITO VELÁSQUEZ MD
--- NOTE | 2022-11-05 10:27 | ED_ITS ---
HPI - General Adult General Chief complaint: General Medical Stated complaint: LBP Time Seen by Provider: 11/05/22 09:11 Source: patient, family, RN notes reviewed and animation camera operator Mode of arrival: ambulatory Limitations: language barrier History of Present Illness HPI narrative: This is a 67-year-old Mongolian speaking male, with a past medical history of type 2 diabetes, atrial fibrillation on Eliquis with defibrillator, hypertension, hyperlipidemia, and obstructive sleep apnea, presenting to the emergency depar tme, accompanied by his daughter, with complaints of dizziness, shortness of breath, headache x2 days. Patient was found to have a low blood pressure of 79/53 this morning. Patient denies any fevers or chills. Denies chest pain, palpitations, or feeling as though his heart is racing. Denies any abdominal pain, nausea, vomiting, or diarrhea. He admits that the dizziness worsens upon standing. Denies any bloody or black stool. Patient sees Dr. Cassidy for cardiology. He has been compliant with all of his medications including his eliquis. No other complaints or concerns at this time. MD complaint: Hypotension, dizziness Onset (ago): day(s) Relieving factors: none Exacerbating factors: movement Associated symptoms: headaches, malaise and shortness of breath Treatments prior to arrival: none Related Data Home Medications Medication Instructions Recorded Confirmed lancets 28 gauge (FreeStyle #100 ea 04/18/20 08/21/22 Lancets) metformin 1,000 mg tablet 1,000 mg PO BID 04/18/20 11/05/22 pen needle, diabetic 31 gauge x #1,200 ea 04/18/20 08/21/22/16 insulin glargine 100 unit/mL (3 20 unit subcut DAILY 07/04/20 11/05/22 mL) subcutaneous pen amitriptyline 10 mg tablet 10 mg PO BEDTIME 10/05/20 11/05/22 atorvastatin 10 mg tablet 10 mg PO BEDTIME 10/05/20 11/05/22 blood sugar diagnostic (FreeStyle #10 ea 10/05/20 08/21/22 Test strips) gabapentin 300 mg capsule 300 mg PO TID 10/05/20 11/05/22 multivitamin 1 tab PO DAILY 01/09/21 11/05/22 Previous Rx's Medication Instructions Recorded apixaban 5 mg tablet (Eliquis) 5 mg PO BID #60 tabs 06/11/22 empagliflozin 25 mg tablet 25 mg PO DAILY 30 days #30 tabs 07/12/22 (Jardiance) cefuroxime axetil 500 mg tablet 500 mg PO BID #10 tabs 11/07/22 doxycycline monohydrate 100 mg 100 mg PO BID #10 caps 11/07/22 capsule furosemide 20 mg tablet 20 mg PO DAILY #30 tabs 11/07/22 sacubitril 24 mg-valsartan 26 mg 1 tab PO BID #60 tabs 11/07/22 tablet (Entresto) sotalol 80 mg tablet 80 mg PO BID@0800,2000 #60 tabs 11/07/22 Allergies Allergy/AdvReac Type Severity Reaction Status Date / Time No Known Allergies Allergy Verified 08/21/22 09:10 Review of Systems Review of Systems: Constitutional: No Weight loss, No Fever, No Chills, No Night Sweats, No Fatigue, No Malaise ENT/Mouth: No Hearing loss, No Ear Pain, No Nasal Congestion, No Sinus Pain, No Hoarseness, No sore throat, No Rhinorrhea, No Swallowing Difficulty Eyes: No Eye Pain, No Swelling, No Redness, No Foreign Body, No Discharge, No Vision Changes Cardiovascular: No Chest Pain, +SOB, No Dyspnea on Exertion, No Orthopnea, No Edema Respiratory: No Cough, No Sputum, No Wheezing, No Smoke Exposure, No Dyspnea Gastrointestinal: No Nausea, No Vomiting, No Diarrhea, No Constipation, No Abdominal pain, No Hematochezia, No Melena Genitourinary: No irregular bleeding, No Dysuria, No Urinary Frequency, No Hematuria, No Urinary Incontinence/retention, No Urgency, No Flank Pain, No Urinary Flow Changes, No Hesitancy Musculoskeletal: No joint pain, No Myalgias, No Joint Swelling Skin: No Skin Lesions, No rash Neuro: No Weakness, No Numbness, No Paresthesias, No Loss of Consciousness, + Dizziness, + Headache Psych: No Anxiety/Panic, No Depression, No SI/HI/AH/VH, No Social Issues, Heme/Lymph: No Bruising, No Bleeding,No Lymphadenopathy Endocrine: No Polyuria, No Polydipsia, No Temperature Intolerance Yes all other systems are reviewed and are negative Constitutional: Constitutional: Reports as per [facility] Past Medical History Medical History (Updated 11/08/22 @ 00:02 by Chey Chris) Atrial flutter with rapid ventricular response Diabetes mellitus History of cardiomyopathy History of congestive heart failure HLD (hyperlipidemia) HTN (hypertension) Hyperlipidemia ICD (implantable cardioverter-defibrillator) in place Intracardiac thrombus DG (obstructive sleep apnea) Paroxysmal atrial fibrillation Paroxysmal atrial flutter T2DM (type 2 diabetes mellitus) Vitamin D deficiency Surgical History History of eye surgery History of permanent cardiac pacemaker placement Hx of rotator cuff surgery Family History Family History Father No problems noted. Mother No problems noted. Sister CAD (coronary artery disease) Social History Social History Household Members: None Housing: House Do you presently have visiting nurse or other home services: No Alcohol intake: never Patient Tobacco Use Status: Current everyday Tobacco user Tobacco use type: Cigarette e-Cigarette/Vaping Use: Never Used service: No Physical Exam ED Vital Signs: Vital Signs - 24 hr 11/05/22 09:00 11/05/22 10:19 11/05/22 11:40 Temperature 97.5 F Pulse Rate 95 149 H 143 H Respiratory Rate 12 18 18 Blood Pressure 74/45 L 85/47 L 112/81 Pulse Oximetry 90 L 94 98 Oxygen Delivery Method Room Air 11/05/22 11:40 11/05/22 11:45 11/05/22 12:22 Temperature Pulse Rate 88 89 91 Respiratory Rate 18 18 18 Blood Pressure 104/70 104/70 86/58 L Pulse Oximetry 97 97 97 Oxygen Delivery Method Nasal Cannula 11/05/22 13:21 11/05/22 14:09 Temperature Pulse Rate 90 89 Respiratory Rate 18 18 Blood Pressure 91/55 L 100/63 Pulse Oximetry 92 94 Oxygen Delivery Method Room Air Room Air BMI result Body Mass Index 17.0 Const General: cooperative, comfortable and no acute distress Orientation/consciousness: patient oriented x3 Limitations: no limitations HENMT Head: Yes normal to inspection, Yes normocephalic and Yes atraumatic Ears: hearing grossly normal bilaterally General nose exam: Normal external nose present Face and sinus: Yes normal facial exam Mouth: Normal oral and palatal mucosa present, oropharynx normal and moist mucous membranes Throat: Yes posterior oropharynx normal Eyes General: appearance normal, both eyes and all related structures Eyelids: Yes eyelids normal Conjunctivae: conjunctivae normal Sclerae: sclerae normal Pupils: Equal, round and reactive pupils present EOM: EOMs intact bilaterally Neck Neck: Yes normal visual inspection, Yes full ROM and Yes no lymphadenopathy Lymphatic: no lymphadenopathy noted Chest Chest palpation & inspection: normal inspection of the chest Resp Other: Crackles heard at bilateral lung bases, no wheezes. Effort & Inspection: normal respiratory effort and able to speak in complete sentences Cardio Rate: tachycardic Heart sounds: S1 normal heart sound present and S2 normal heart sound present GI Inspection: Yes normal to inspection Skin General skin exam: no rashes or lesions noted Trauma: no lacerations or abrasions Wounds: no wounds Neuro General: patient oriented x3 and moves all extremities Cranial nerves: Yes Equal, round and reactive pupils present Extrem Other: no pedal edema General: Yes normal to inspection Right upper extremity: normal to inspection Left upper extremity: normal to inspection Right lower extremity: normal to inspection Left lower extremity: normal to inspection Course Reevaluation(s) Reevaluation #1: Pt still tachycardic in 150s despite digoxin, BP 80s/50s. Discussed case with mold dumper, Dr. Cassidy, who reviewed EKG and patient presentation, EKG found to be in atrial flutter, and recommends synchronized cardioversion. Dr. Cassidy will come down into the emergency department for synchronous cardioversion. Time: 11:00 Reevaluation #2: Cardioversion performed by Dr. Cassidy and Dr. De La Cruz, using conscious sedation successfully cardioverted into normal sinus rhythm. Patient tolerated procedure well without any complications, repeat EKG ordered. Discussion with Dr. Cassidy, who recommends giving Lasix 20 mg and patient will be admitted inpatient for further observation and work up. Time: 11:45 Reevaluation #3: BNP added as this was not completed during EMR downtime. CXR pending. Patient feeling well. X-ray reviewed as left lower lobe pneumonia. Case discussed with hospitalist, Dr. Orourke, who accepts transfer of care. Time: 13:38 Medications Administered Discontinued Medications Generic Name Dose Route Start Last Admin Trade Name Freq PRN Reason Stop Dose Admin Amitriptyline HCl 10 mg 11/05/22 21:00 11/06/22 20:58 Amitriptyline Hcl 10 Mg Tablet PO 10 mg BEDTIME MICHAEL Administration Apixaban 5 mg 11/05/22 21:00 11/07/22 09:47 Apixaban 5 Mg Tablet PO 5 mg BID MICHAEL Administration Atorvastatin Calcium 10 mg 11/05/22 21:00 11/06/22 20:59 Atorvastatin Calcium 10 Mg Tablet PO 10 mg BEDTIME MICHAEL Administration Digoxin 0.25 mg 11/05/22 10:21 11/05/22 10:26 Digoxin 0.5 Mg/2 Ml Ampul IVPUSH 11/05/22 10:22 0.25 mg ONCE ONE Administration Diltiazem HCl 10 mg 11/05/22 10:46 11/05/22 11:49 Diltiazem Hcl 50 Mg/10 Ml Vial IVPUSH 11/05/22 10:47 Not Given STAT STA Doxycycline Monohydrate 100 mg 11/05/22 18:00 11/07/22 05:59 Doxycycline Monohydrate 100 Mg Capsule PO 100 mg Q12H MICHAEL Administration Empagliflozin 25 mg 11/06/22 09:00 11/07/22 09:47 Empagliflozin 25 Mg Tablet PO 25 mg DAILY MICHAEL Administration Furosemide 20 mg 11/05/22 11:51 11/05/22 12:22 Furosemide 20 Mg/2 Ml Vial IVPUSH 11/05/22 11:52 20 mg ONCE ONE Administration Protocol Furosemide 20 mg 11/07/22 09:00 11/07/22 09:48 Furosemide 20 Mg Tablet PO 20 mg DAILY MICHAEL Administration Protocol Gabapentin 300 mg 11/05/22 21:00 11/07/22 09:47 Gabapentin 300 Mg Capsule PO 300 mg TID MICHAEL Administration Sodium Chloride 1,000 mls @ 500 mls/hr 11/05/22 10:46 11/05/22 12:23 Ns IV 11/05/22 12:45 Infused .Q2H ONE Infusion Ceftriaxone Sodium 1 gm/ 50 mls @ 100 mls/hr 11/05/22 16:00 11/06/22 18:31 Sodium Chloride IV Infused Q24H MICHAEL Infusion Insulin Glargine 15 unit 11/06/22 09:00 11/07/22 09:48 Insulin Glargine,Hum.Rec.Anlog 100 Unit/Ml 10 Ml Vial SUBCUT 15 unit DAILY MICHAEL Administration Insulin Human Lispro 0 unit 11/05/22 16:30 07/12/23 13:01 Insulin Lispro 100 Unit/Ml 3 Ml Vial SUBCUT 2 unit QIDACHS [facility] Administration Protocol Multivitamins/Vitamin C 1 tab 11/06/22 09:00 11/07/22 09:47 Multivitamin Tablet PO 1 tab DAILY MICHAEL Administration Propofol 56.699 mg 11/05/22 11:25 11/05/22 11:45 Propofol 200 Mg/20 Ml Vial 1 mg/kg (56.699 mg) 11/05/22 11:26 55 mg IVPUSH Administration ONCE ONE Sacubitril/Valsartan 1 tab 11/06/22 21:00 11/07/22 09:47 Sacubitril/Valsartan 1 Tab Tablet PO 1 tab BID MICHAEL Administration Protocol Sodium Chloride 3 ml 11/05/22 16:00 11/07/22 09:48 0.9 % Sodium Chloride Flush 3 Ml Syringe IVFLUSH 3 ml QSHIFT MICHAEL Administration Sotalol HCl 80 mg 11/05/22 15:37 11/05/22 17:46 Sotalol Hcl 80 Mg Tablet PO 11/05/22 15:38 Not Given ONCE ONE Sotalol HCl 80 mg 11/06/22 08:00 11/06/22 15:30 Sotalol Hcl 80 Mg Tablet PO Not Given DAILY [facility] Sotalol HCl 80 mg 11/05/22 18:18 11/05/22 19:27 Sotalol Hcl 80 Mg Tablet PO 11/05/22 18:19 80 mg STAT STA Administration Sotalol HCl 80 mg 11/06/22 20:00 11/07/22 09:48 Sotalol Hcl 80 Mg Tablet PO 80 mg BID@0800,1999 [facility] Administration Procedures Procedure Narrative Procedure Narrative: Conscious sedation: Patient consented for conscious sedation. Indication was cardioversion from atrial flutter with unstable blood pressure. Dr. Cassidy performed the procedure. Patient was an ASA 3. Mallampati was 1. Patient was placed on a electronic device monitor, nasal cannula oxygen supplementation, IV fluids open. Patient was given propofol 55 mg IV push. Appropriate sedation was achieved. Patient had no hypotensive or apneic episodes. There is no immediate complication from sedation. Patient was successfully cardioverted. Patient was under constant observation until recovery. Medical Decision Making Medical Decision Making MDM Narrative: 67-year-old male presenting to emergency department for evaluation of weakness, dizziness, headaches and shortness of breath x2 days. On arrival, blood pressure 74/45, oxygen saturation 90% on room air > which improved to 94 to 97%. EKG performed showing atrial flutter at 153bpm. Given critical sinus tachycardia rate needs to be slowed as patient is symptomatic care and tachycardia can be life-threatening. Digoxin 0.25mg IV was the treatment of choice given hypotension and attempts to target AV glen blocking agent. Lungs with crackles, concerning for CHF. Will closely monitor on electronic device monitor, given IV fluids, labs, lactic, troponin, BNP, chemistry, CBC, stool occult. Discussed case with attending physician Dr. De La Cruz. Plan: Labs, EKG, chest x-ray, IV fluids, orthostatic vitals Differential Diagnosis Differential Diagnoses: The differential diagnosis associated with the presentation includes Tachycardia, CHF, pneumonia, ICH, subdural hemorrhage SVT, Atrial flutter, atrial fibrillation Admission/Observation Consideration of admission/observation: Escalation of care including admi ssion/observation considered Admission considered and warranted given tachycardia upon arrival, and unstable vital signs. Consult Healthcare Provider Management of the patient was discussed with: Hospitalist and Rd Lab Technician Dr. Cassidy, cardiology Lab Data MDM Lab Attestation statement: I reviewed the patient's lab results. see above 11/05/22 10:00 11/05/22 10:00 Labs: Lab Results 11/05/22 11/05/22 11/05/22 Range/Units 10:00 10:00 10:00 WBC 9.6 (4.8-10.8) X10*3/uL RBC 5.11 (4.60-5.80) X10*6/uL Hgb 16.6 (14.0-18.0) g/dl Hct 50.5 (42.0-52.0) % MCV 98.8 H (80.0-98.0) fL MCH 32.5 (27.0-33.0) pg MCHC 32.9 (31.0-36.0) g/dl RDW 13.4 (11.0-16.0) % Plt Count 154 L (160-400) X10*3/uL MPV 10.9 (9.4-12.4) fL Immature Gran % (Auto) 0.2 (0.0-0.4) % Neut % (Auto) 63.9 (45-73) % Lymph % (Auto) 22.6 (20-40) % [place] % (Auto) 9.5 (2-11) % Eos % (Auto) 3.0 (0-4) % Baso % (Auto) 0.8 (0-2) % Lymph # (Auto) 2.2 (1.2-4.9) X10*3/uL [place] # (Auto) 0.9 (0.1-1.2) X10*3/uL Eos # (Auto) 0.3 (0.0-0.4) X10*3/uL Baso # (Auto) 0.1 (0.0-0.2) X10*3/uL Abs Immat Gran (auto) 0.02 (0.00-0.03) X10*3/uL Absolute Neuts (auto) 6.1 (2.0-8.3) x10*3/uL Absolute Nucleated RBC 0.000 (0.0-0.012) X10*3/uL Nucleated RBC % (auto) 0.0 (0.0-0.2) /100WBC PT 12.5 (10.0-13.1) SEC INR 1.1 (0.9-1.1) APTT 40.4 H (26.0-36.4) SEC Sodium 143 (135-145) mmol/L Potassium 4.7 (3.3-5.1) mmol/L Chloride 107 (96-108) mmol/L Carbon Dioxide 25 (22-29) mmol/L Anion Gap 16 (12-20) BUN 31 H (9-16) mg/dL Creatinine 1.28 (0.5-1.4) mg/dL Estim Creat Clear Calc 43.6 Estimated GFR 56 Random Glucose 185 H (60-115) mg/dL Calcium 10.1 D (8.4-10.2) mg/dL Magnesium 1.9 (1.6-2.6) mg/dL Total Bilirubin 0.5 (0.0-1.0) mg/dL Direct Bilirubin 0.2 (0.0-0.5) mg/dL AST 20 (5-37) U/L ALT 19 (0-40) U/L Alkaline Phosphatase 65 (39-117) U/L Total Creatine Kinase 98 (38-174) U/L Troponin I High Sens (<3.5-35.0) ng/L B-Natriuretic Peptide (<100) pg/mL Total Protein 6.6 (6.5-8.0) g/dL Albumin 3.9 (3.5-5.0) g/dL Amylase 38 (28-100) U/L Lipase 15 (8-78) U/L TSH 2.14 (0.32-4.0) uIU/mL Stool Occult Blood (NEGATIVE) 11/05/22 11/05/22 11/05/22 Range/Units 10:00 10:00 13:24 WBC (4.8-10.8) X10*3/uL RBC (4.60-5.80) X10*6/uL Hgb (14.0-18.0) g/dl Hct (42.0-52.0) % MCV (80.0-98.0) fL MCH (27.0-33.0) pg MCHC (31.0-36.0) g/dl RDW (11.0-16.0) % Plt Count (160-400) X10*3/uL MPV (9.4-12.4) fL Immature Gran % (Auto) (0.0-0.4) % Neut % (Auto) (45-73) % Lymph % (Auto) (20-40) % [place] % (Auto) (2-11) % Eos % (Auto) (0-4) % Baso % (Auto) (0-2) % Lymph # (Auto) (1.2-4.9) X10*3/uL [place] # (Auto) (0.1-1.2) X10*3/uL Eos # (Auto) (0.0-0.4) X10*3/uL Baso # (Auto) (0.0-0.2) X10*3/uL Abs Immat Gran (auto) (0.00-0.03) X10*3/uL Absolute Neuts (auto) (2.0-8.3) x10*3/uL Absolute Nucleated RBC (0.0-0.012) X10*3/uL Nucleated RBC % (auto) (0.0-0.2) /100WBC PT (10.0-13.1) SEC INR (0.9-1.1) APTT (26.0-36.4) SEC Sodium (135-145) mmol/L Potassium (3.3-5.1) mmol/L Chloride (96-108) mmol/L Carbon Dioxide (22-29) mmol/L Anion Gap (12-20) BUN (9-16) mg/dL Creatinine (0.5-1.4) mg/dL Estim Creat Clear Calc Estimated GFR Random Glucose (60-115) mg/dL Calcium (8.4-10.2) mg/dL Magnesium (1.6-2.6) mg/dL Total Bilirubin (0.0-1.0) mg/dL Direct Bilirubin (0.0-0.5) mg/dL AST (5-37) U/L ALT (0-40) U/L Alkaline Phosphatase (39-117) U/L Total Creatine Kinase (38-174) U/L Troponin I High Sens 28.2 (<3.5-35.0) ng/L B-Natriuretic Peptide 569 H (<100) pg/mL Total Protein (6.5-8.0) g/dL Albumin (3.5-5.0) g/dL Amylase (28-100) U/L Lipase (8-78) U/L TSH (0.32-4.0) uIU/mL Stool Occult Blood NEGATIVE (NEGATIVE) 11/05/22 Range/Units 13:57 WBC (4.8-10.8) X10*3/uL RBC (4.60-5.80) X10*6/uL Hgb (14.0-18.0) g/dl Hct (42.0-52.0) % MCV (80.0-98.0) fL MCH (27.0-33.0) pg MCHC (31.0-36.0) g/dl RDW (11.0-16.0) % Plt Count (160-400) X10*3/uL MPV (9.4-12.4) fL Immature Gran % (Auto) (0.0-0.4) % Neut % (Auto) (45-73) % Lymph % (Auto) (20-40) % [place] % (Auto) (2-11) % Eos % (Auto) (0-4) % Baso % (Auto) (0-2) % Lymph # (Auto) (1.2-4.9) X10*3/uL [place] # (Auto) (0.1-1.2) X10*3/uL Eos # (Auto) (0.0-0.4) X10*3/uL Baso # (Auto) (0.0-0.2) X10*3/uL Abs Immat Gran (auto) (0.00-0.03) X10*3/uL Absolute Neuts (auto) (2.0-8.3) x10*3/uL Absolute Nucleated RBC (0.0-0.012) X10*3/uL Nucleated RBC % (auto) (0.0-0.2) /100WBC PT (10.0-13.1) SEC INR (0.9-1.1) APTT (26.0-36.4) SEC Sodium (135-145) mmol/L Potassium (3.3-5.1) mmol/L Chloride (96-108) mmol/L Carbon Dioxide (22-29) mmol/L Anion Gap (12-20) BUN (9-16) mg/dL Creatinine (0.5-1.4) mg/dL Estim Creat Clear Calc Estimated GFR Random Glucose (60-115) mg/dL Calcium (8.4-10.2) mg/dL Magnesium (1.6-2.6) mg/dL Total Bilirubin (0.0-1.0) mg/dL Direct Bilirubin (0.0-0.5) mg/dL AST (5-37) U/L ALT (0-40) U/L Alkaline Phosphatase (39-117) U/L Total Creatine Kinase (38-174) U/L Troponin I High Sens 24.9 (<3.5-35.0) ng/L B-Natriuretic Peptide (<100) pg/mL Total Protein (6.5-8.0) g/dL Albumin (3.5-5.0) g/dL Amylase (28-100) U/L Lipase (8-78) U/L TSH (0.32-4.0) uIU/mL Stool Occult Blood (NEGATIVE) Independent Interpretation I performed an independent interpretation of an: Plain X-Ray Interpretation: I have reviewed the chest x-ray and agree with the radiology report. EKG #1: Vent. Rate : 153 BPM ? ? Atrial Rate : 153 BPM ?? P-R Int : 144 ms? QRS Dur : 114 ms ? ? QT Int : 242 ms ? ? ? P-R-T Axes : 000 069 063 degrees ?? QTc Int : 386 ms ? Atrial flutter with 2 to 1 block EKG #2: (After cardioversion) Vent. Rate : 087 BPM ? ? Atrial Rate : 087 BPM ?? P-R Int : 142 ms? QRS Dur : 088 ms ? ? QT Int : 358 ms ? ? ? P-R-T Axes : 035 050 055 degrees ?? QTc Int : 430 ms ? Normal sinus rhythm with sinus arrhythmia Normal ECG When compared with ECG of 05-NOV-2022 11:44, No significant change was found Radiology Impression Discussion of test interpretation with radiology: I have reviewed the radiologist's reading. Radiologist Impression: EXAMINATION: XR CHEST CLINICAL INFORMATION: Shortness of breath. COMPARISON: Chest CT 11/20/2021 TECHNIQUE: Frontal view of the chest was obtained. FINDINGS: The lungs are hypoexpanded. Airspace disease in the left lower lobe. No pleural effusion. Cardiac silhouette is unchanged. Single lead pacing device is in stable position. XR/XR chest 1V IMPRESSION: Left lower lobe pneumonia. Follow-up until resolution is advised. ? EXAMINATION: CT HEAD WITHOUT CONTRAST CT CERVICAL SPINE WITHOUT CONTRAST CLINICAL INFORMATION: On anticoagulation. Dizziness. COMPARISON: CT head 09/18/2018. TECHNIQUE: Cup Machine Operator images were obtained. CT imaging of the head and cervical spine was performed without contrast. Data was reformatted into multiplanar images at the acquisition workstation. This CT examination was performed using dose optimization techniques as appropriate, including one or more of the following: Automated exposure control, iterative reconstruction, and adjustment of technique factors (mA and/or kVp) according to patient size (this includes techniques or standardized protocols for targeted exams where dose is matched to indication/reason for exam). Fleischner Society criteria for the followup of incidental pulmonary nodules was implemented if appropriate. DLP: 950 mGy-cm. FINDINGS: Head: There is no acute intracranial hemorrhage or abnormal extra-axial collection. No intracranial mass effect or midline shift. Lateral and third ventricles are normal. No hydrocephalus. Dixon-white matter differentiation is preserved and there is no evidence of acute territorial infarct. There is a small focus of subcutaneous soft tissue swelling involving the scalp near the vertex. The underlying calvarium is intact. No acute skull base fracture. There is no mastoid middle ear effusion. No active paranasal sinus disease. Cervical spine: There is nonspecific straightening of the cervical lordosis. Alignment is otherwise normal. Vertebral heights are preserved. There is loss of intervertebral disc height with associated sclerotic degenerative endplate changes and hypertrophic disc osteophyte spurring at C5-C6 and C6-C7. There is also relatively advanced degenerative arthrosis of the atlantodental joint. No evidence of acute cervical spine fracture. No abnormal prevertebral soft tissue swelling. Disc osteophyte spurring in conjunction with facet degenerative change causes at least moderate canal stenosis at C5-C6 and C6-C7. Uncovertebral joint spurring in conjunction with facet degenerative change causes mild to moderate neuroforaminal encroachment at these 2 levels. Visualized soft tissues of the neck are normal. Grossly no pathologically enlarged cervical lymph nodes. Lung apices are clear. CT/CT cervical spine wo IV con IMPRESSION: Head: There is a small focus of subcutaneous soft tissue swelling involving the scalp near the vertex. The underlying calvarium is intact. No acute intracranial hemorrhage. ? Cervical spine: No acute cervical spine fracture. There is multilevel degenerative spondylosis of the cervical spine with at least moderate canal stenosis at C5-C6 and C6-C7. If there are clinical symptoms of compressive myelopathy then a dedicated cervical spine MRI can be obtained for better anatomic characterization of the cord and canal. Dictated By: Henri Sweeney MD External Record Review External record reviewed: Inpatient record, Office record, Outpatient record, Prior outpatient labs, Prior outpatient radiology, Primary care record and Outside ED record Critical Care Time Critical Care Time Critical Care Time: Yes Total Critical Care Time: 60 Attestation: I have personally provided critical care time exclusive of time spent on separately billable procedures. Time includes review of lab data, radiology results, discussion with consultants, and monitoring for potential decompensation. Intervention performed as documented. Discharge Plan Discharge Clinical Impression: Atrial flutter, Weakness, Pneumonia Patient Disposition: Admitted As Inpatient Discharge Date/Time: 11/05/22 23:21
--- NOTE | 2022-11-05 10:29 | PC.NURSE ---
Alert and oriented, arrived from home after not feeling well x 2 days. Mostly lebanese speaking, daughter at bedside to help with translation. Denies sob, chest pain , or headache. EKG obtained and reviewed by provider. BP low, provider aware. Blood work obtained per orders, IV fluids running per provider order. BP remains low, provider aware. HR 140`s-150`s- dig given per order. Denies dizziness or lightheadedness. Stes 4/10 back of head pain that started 2 days ago. No lower extremity edema noted.
--- NOTE | 2022-11-05 10:54 | PC.NURSE ---
500mls N/s running per order. BP 85/44, per provider order hold caridzem at this time. 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
[2022-11-05 11:45] LABS: Alanine Aminotransferase 19 U/L (0-40); Albumin Level 3.9 g/dL (3.5-5.0); Alkaline Phosphatase 65 U/L (39-117); Amylase 38 U/L (28-100); Anion Gap 16 (12-20); Aspartate Amino Transferase 20 U/L (5-37); Bilirubin Direct 0.2 mg/dL (0.0-0.5); Bilirubin Total 0.5 mg/dL (0.0-1.0); Blood Urea Nitrogen 31 mg/dL (9-16); Calcium 10.1 mg/dL (8.4-10.2); Carbon Dioxide 25 mmol/L (22-29); Chloride 107 mmol/L (96-108); Creatinine Clr Calc Pharmacy 43.6; Estimated Glomerular Filt Rate 56; Glucose Random 185 mg/dL (60-115); Lipase 15 U/L (8-78); Potassium 4.7 mmol/L (3.3-5.1); Sodium 143 mmol/L (135-145); Total Protein 6.6 g/dL (6.5-8.0)
--- NOTE | 2022-11-05 11:46 | PC.NURSE ---
Seen by cardiology, plan is to cardiovert patient. Disability Representative into room and translated for patient and daughter. Patient in agreement with procedure. Emergency equiptment into room. Respiratory at bedside. Consents signed by MD along with ASA. Provider gave x 1 dose of 55mg propofol. Cardioverted x 1, HR 89 NSR on monitor. BP 95/58 at this time
--- NOTE | 2022-11-05 11:47 | HO.CARDIVERS ---
Cardioversion Procedure Note Cardioversion Date of Procedure: Today Ordering Provider: Myself Performing Provider: Myself Indication for Procedure: Persistent atrial flutter with hypotension and heart failure Pre-Op Diagnosis: Same Performed with Transesophageal Echo: No History: See my consult note Consent: Verbal and Written consent was obtained from the patient before starting the procedure and confirming oral anticoagulation use with help of a certified sword swallower. The patient was made aware of the risk of synchronized cardioversion including benefits and alternatives Procedure: After consent obtained, cardioversion pads were attached in AP configuration and the patient was sedated by the anesthesia team. Once adequate sedation achieved, patient was delivered 200 joules of synchronized energy in anteroposterior configuration Complications: none Impression: Successful conversion to synchronized cardioversion Recommendations: 1. Twelve lead EKG 2. In-patient admission to start antiarrhythmic drug therapy with sotalol 3. Continue oral anticoagulation therapy
--- NOTE | 2022-11-05 11:50 | PC.NURSE ---
PER MD verbal order 500mls of NS running open during procedure. Started at 11:40am. Propofol given by MD at 11:40am.
--- NOTE | 2022-11-05 11:51 | PM.CNCAR ---
History of Present Illness History of Present Illness Date of Service: 11/05/22 Requesting physician: Sarah Foster Consult reason: other (Tachycardia and hypotension) Chief complaint: LBP Narrative: I was consulted to see Shaka urgently by ED team because of persistent tachycardia and hypertension. History was obtained from the patient as well as from patient's daughter at bedside. Patient is a 67-year-old male with prior history of insulin-requiring diabetes, hypertension, prior history of cardiomyopathy and congestive heart failure, nonischemic, paroxysmal atrial fibrillation, ICD in place for primary prevention for many years. Patient was brought to the emergency room by the daughter who is closely involved in his care because patient was complain of dizziness this morning. He had no other complaints. Said for the last 2 or 3 days not been feeling well although very nonspecific symptoms. History was obtained with help of a bedside inspection machine tender. Patient denies any chest pain, palpitations, syncope, orthopnea, PND. He also denies shortness of breath. Denies any cough productive phlegm. When he came to the emergency room he was noted to be hypertensive with rapid heart rate. Initially it was felt that he was sinus tachycardia. Was given 1 L of fluid. Labs have been pending. There is no leukocytosis or fever. Cardiology consult was sought as his tachycardia did not overall computed with his clinical presentation. After I reviewed EKG felt like this was rapid atrial flutter causing patient's hemodynamic compromise. Patient was noted bilateral crackles. Decision was made to perform synchronized cardioversion urgently at bedside. Consents were obtained. Review of Systems Constitutional: Constitutional: Reports no additional constitutional complaints Eyes: Eyes: Reports no additional eye complaints Cardiovascular: Cardiovascular: Denies chest pain, Denies rapid heart rate, Reports lightheadedness, Denies Loss of Consciousness, Denies palpitations, Denies dyspnea and Denies orthopnea Respiratory: Respiratory: Reports no additional respiratory complaints and Denies dyspnea Gastrointestinal: Gastrointestinal: Reports no additional gastrointestinal complaints Genitourinary: Genitourinary: Reports no additional male genitourinary complaints Musculoskeletal: Musculoskeletal: Reports no additional musculoskeletal complaints Integumentary/Breasts: Skin/Breast: Reports system reviewed and no additional complaints, except as docu Neurologic: Reports system reviewed and no additional complaints, except as documented Psychiatric: Psychiatric: Reports no additional psychiatric complaints Endocrine: Endocrine: Reports no additional endocrine complaints and Denies palpitations Allergic/Immunologic: Allergic/Immunologic: Reports no additional allergic/immunologic complaints COUNTS INCLUDE 234 BEDS AT THE [facility] Past Medical History Medical History Diabetes mellitus History of cardiomyopathy History of congestive heart failure HLD (hyperlipidemia) HTN (hypertension) Hyperlipidemia ICD (implantable cardioverter-defibrillator) in place Intracardiac thrombus DG (obstructive sleep apnea) Paroxysmal atrial fibrillation T2DM (type 2 diabetes mellitus) Vitamin D deficiency Family History Family History Father No problems noted. Mother No problems noted. Sister CAD (coronary artery disease) Surgical History Surgical History History of eye surgery History of permanent cardiac pacemaker placement Hx of rotator cuff surgery Social History Social History Household Members: None Alcohol intake: never Patient Tobacco Use Status: Current everyday Tobacco user Smoked in Last 30 Days: Yes Use of substances other than those prescribed or required for medical reasons: No Advance Directives: No Advance Directives Information Provided: Yes Meds Allergies Allergy/AdvReac Type Severity Reaction Status Date / Time No Known Allergies Allergy Verified 08/21/22 09:10 Active Medications: Current Medications Sodium Chloride (Ns) 1,000 mls @ 500 mls/hr IV .Q2H ONE Stop: 11/05/22 12:45 Last Admin: 11/05/22 10:52 Dose: 500 mls/hr Home Medications Medication Instructions Recorded Confirmed Last Taken Type lancets 28 gauge (FreeStyle #100 ea 04/18/20 08/21/22 Unknown History Lancets) metformin 1,000 mg tablet 1,000 mg PO BID 04/18/20 08/21/22 Unknown History pen needle, diabetic 31 gauge x #1,200 ea 04/18/20 08/21/22 Unknown History 09/11 insulin glargine 100 unit/mL (3 20 unit subcut QPM 07/04/20 08/21/22 Unknown History mL) subcutaneous pen amitriptyline 10 mg tablet 10 mg PO DAILY 10/05/20 08/21/22 Unknown History atorvastatin 10 mg tablet 10 mg PO DAILY 10/05/20 08/21/22 Unknown History blood sugar diagnostic (FreeStyle #10 ea 10/05/20 08/21/22 Unknown History Test strips) gabapentin 300 mg capsule 300 mg PO TID 10/05/20 08/21/22 Unknown History multivitamin 1 tab PO DAILY 01/09/21 08/21/22 Unknown History semaglutide 2 mg/dose (8 mg/3 mL) 2 mg subcut QWEEK 08/21/22 08/21/22 Unknown History subcutaneous pen injector (Ozempic) Physical Exam Vital Signs: Vital Signs: Last Vital Signs Temp 97.5 F 11/05/22 10:19 Pulse 89 11/05/22 11:45 Resp 18 11/05/22 11:45 BP 104/70 11/05/22 11:45 Pulse Ox 97 11/05/22 11:45 O2 Del Method Room Air 11/05/22 09:00 Oxygen Flow Rate 2 11/05/22 11:40 BMI result Body Mass Index 17.0 Const: General: cooperative, comfortable, no acute distress, alert, awake, diaphoretic and other (pale) Nutritional Appearance: thin Orientation/consciousness: patient oriented x3 HEENT: Head: Yes normocephalic and Yes atraumatic Neck: Neck: Yes trachea midline, Yes supple and Yes no JVD Resp: Effort & Inspection: normal respiratory effort Auscultation: rales bilateral 1/[address] up Cardio: Jugular venous distension: no JVD Rate: tachycardic Heart sounds: S1 normal heart sound present, S2 normal heart sound present, no click and no murmurs GI: Auscultation: normal bowel sounds Skin: General skin exam: no rashes or lesions noted Neuro: General: patient oriented x3 and no focal motor deficits Extrem: General: Yes no clubbing, cyanosis or edema Objective Labs and Meds 11/05/22 10:00 11/05/22 10:00 Lab results: Laboratory Results - last 24 hr 11/05/22 11/05/22 11/05/22 10:00 10:00 10:00 WBC 9.6 RBC 5.11 Hgb 16.6 Hct 50.5 MCV 98.8 H MCH 32.5 MCHC 32.9 RDW 13.4 Plt Count 154 L MPV 10.9 Immature Gran % (Auto) 0.2 Neut % (Auto) 63.9 Lymph % (Auto) 22.6 Grundy % (Auto) 9.5 Eos % (Auto) 3.0 Baso % (Auto) 0.8 Lymph # (Auto) 2.2 Grundy # (Auto) 0.9 Eos # (Auto) 0.3 Baso # (Auto) 0.1 Abs Immat Gran (auto) 0.02 Absolute Neuts (auto) 6.1 Absolute Nucleated RBC 0.000 Nucleated RBC % (auto) 0.0 PT 12.5 INR 1.1 APTT 40.4 H Sodium 143 Potassium 4.7 Chloride 107 Carbon Dioxide 25 Anion Gap 16 BUN 31 H Creatinine 1.28 Estim Creat Clear Calc 43.6 Estimated GFR 56 Random Glucose 185 H Calcium 10.1 D Total Bilirubin 0.5 Direct Bilirubin 0.2 AST 20 ALT 19 Alkaline Phosphatase 65 Total Creatine Kinase 98 Troponin I High Sens Total Protein 6.6 Albumin 3.9 Amylase 38 Lipase 15 11/05/22 10:00 WBC RBC Hgb Hct MCV MCH MCHC RDW Plt Count MPV Immature Gran % (Auto) Neut % (Auto) Lymph % (Auto) Grundy % (Auto) Eos % (Auto) Baso % (Auto) Lymph # (Auto) Grundy # (Auto) Eos # (Auto) Baso # (Auto) Abs Immat Gran (auto) Absolute Neuts (auto) Absolute Nucleated RBC Nucleated RBC % (auto) PT INR APTT Sodium Potassium Chloride Carbon Dioxide Anion Gap BUN Creatinine Estim Creat Clear Calc Estimated GFR Random Glucose Calcium Total Bilirubin Direct Bilirubin AST ALT Alkaline Phosphatase Total Creatine Kinase Troponin I High Sens 28.2 Total Protein Albumin Amylase Lipase EKG is consistent with atrial flutter with 2 is to 1 conduction Assessment and Plan (1) Atrial flutter with rapid ventricular response: Status: Acute Patient presents with rapid atrial flutter with heart failure decompensation as well as hypertension. Status post surgeon synchronized cardioversion. He will benefit from rhythm control approach in the future. Most likely given his prior cardiomyopathy will require antiarrhythmic drug support. Start him on sotalol 60 mg b.i.d.. Sotalol protocol needs to be pursued. Continue full oral anticoagulation with Eliquis. Continue monitor closely on full disclosure cardiac telemetry. Will continue follow with you. Echocardiogram later today. Check TSH (2) Decompensated heart failure: Status: Acute Decompensated heart failure related to rapid atrial flutter with prior history of cardiomyopathy. Gentle diuresis with Lasix 20 mg IV push for now. Strict intake and output chart needs to be pursued. Follow rhythm control approach as above. Continue neurohormonal modulation with Jardiance and losartan. The past he has had issues with low blood pressure, if blood pressure remains stable will switch to Entresto therapy. Echocardiogram. Follow renal function and electrolytes and replace as needed. Will continue to follow with you Time Spent With Patient Time: Total time managing care of this patient today ____ minutes. Procedures Date of Service Date of Service: 11/05/22
--- NOTE | 2022-11-05 12:24 | PC.NURSE ---
Alert and oriented, Denies any pain or discomfort. Oxygen removed, sating 97% on RA. NSR on monitor, HR 89. Denies sob, chest pain , or headache.
--- NOTE | 2022-11-05 14:10 | PC.NURSE ---
Alert and oriented, reports feeling much better. NSR, HR 88. Denies any pain or discomfort. Voided x 1 large amount of clear yellow urine. Daughter at bedside.
--- NOTE | 2022-11-05 14:37 | PHA.MEDREC ---
Pharmacy Consult ? Medication Reconciliation Pharmacy has completed the medication reconciliation. SPOKE TO PATIENT AND DAUGHTER. PT NO LONGER ON OZEMPIC TIFFANIE
--- NOTE | 2022-11-05 14:40 | PC.NURSE ---
remains in NSR on monitor, denies chest pain or sob. bp 103/66. Remains with pads in place.
--- NOTE | 2022-11-05 15:21 | PM.IMHP ---
History of Present Illness Date of Service: 11/05/22 Attending physician on admission: Rubens Major Chief Complaint: sob, general weakness 67-year-old male with history of hypertension, hyperlipidemia, paroxysmal atrial fibrillation with ICD please, insulin-dependent type 2 diabetes, DG compliant with CPAP, HFrEF, nonischemic cardiomyopathy presented to the ED earlier today with his daughter for evaluation of shortness of breath and generalized weakness ongoing for about 3 days. He does also endorse an occasional dry cough over the last 2-3 days. He also endorses lightheadedness. Denies any known sick contacts. Denies any fevers, chills sore throat, congestion, abdominal pain, nausea, vomiting, diarrhea, orthopnea, PND, palpitations, or chest pain. He lives by himself but his daughter routinely checks on him and took his blood pressure this morning and he was hypotensive at 77/53. On arrival to the ED, patient was hypotensive at 74/45 and was resuscitated with 1 L IV NS with slight improvement in blood pressure the patient developed significant tachycardia to 149 noted monitor technician and EKG showed atrial fibrillation, rate 153. Cardiology was consulted in the ED and the decision was made to perform bedside cardioversion after patient failed to convert with dioxin, IVF. Patient converted to normal sinus rhythm, rate in the 80s with marked improvement in symptoms. He was also given 20mg IV lasix. Hematology studies were negative for any leukocytosis. Creatinine 1.28, BUN 31, creatinine clearance 43.6. Electrolyte levels within normal limits including magnesium of 1.9 and calcium of 10.1. Hepatic function normal. Troponin within normal limits. BNP 569. TSH level pending. CXR showed left lower lobe pneumonia but no definitive pleural effusions. CT of the head/neck negative for any acute intracranial abnormality or any acute cervical spine fracture/subluxation but does show multilevel degenerative spondylosis with at least moderate canal stenosis at C5-C6 and C6-C7. watchmaking teacher used to assist in translation Review of Systems Review of Systems: General: No fevers, malaise, unintentional weight loss HEENT:No sore throat, nasal congestion, rhinorrhea, sinus pain, ear pain Cardiovascular: No chest pain, palpitations, or leg edema Respiratory: +sob, cough. No wheezing GI: No abdominal pain, nausea, vomiting, diarrhea, constipation, melena, hematochezia : No dysuria, hematuria, increased urinary frequency, decreased urinary output MSK: No myalgia, back pain Neuro: No headaches, weakness, paresthesias. +lightheadedness, +generalized weakness Skin: No rashes or lesions [facility] Medical History Diabetes mellitus History of cardiomyopathy History of congestive heart failure HLD (hyperlipidemia) HTN (hypertension) Hyperlipidemia ICD (implantable cardioverter-defibrillator) in place Intracardiac thrombus DG (obstructive sleep apnea) Paroxysmal atrial fibrillation T2DM (type 2 diabetes mellitus) Vitamin D deficiency Family History Father No problems noted. Mother No problems noted. Sister CAD (coronary artery disease) Surgical History History of eye surgery History of permanent cardiac pacemaker placement Hx of rotator cuff surgery Social History Household Members: None Alcohol intake: never Patient Tobacco Use Status: Current everyday Tobacco user Smoked in Last 30 Days: Yes Use of substances other than those prescribed or required for medical reasons: No Advance Directives: No Advance Directives Information Provided: Yes Meds Allergies Allergy/AdvReac Type Severity Reaction Status Date / Time No Known Allergies Allergy Verified 08/21/22 09:10 Active Medications: Current Medications Acetaminophen (Acetaminophen 325 Mg Tablet) 650 mg PO Q6H PRN PRN Reason: Pain, Mild (Pain Scale 1-3) Amitriptyline HCl (Amitriptyline Hcl 10 Mg Tablet) 10 mg PO BEDTIME MICHAEL Apixaban (Apixaban 5 Mg Tablet) 5 mg PO BID MICHAEL Atorvastatin Calcium (Atorvastatin Calcium 10 Mg Tablet) 10 mg PO BEDTIME MICHAEL Dextrose (Dextrose 50 % 25 Gm/50 Ml Syringe) 25 gm IVPUSH Q15M PRN; Protocol PRN Reason: per Hypoglycemia Standing Ord. Docusate Sodium (Docusate Sodium 100 Mg Capsule) 100 mg PO DAILY PRN PRN Reason: Constipation Empagliflozin (Empagliflozin 25 Mg Tablet) 25 mg PO DAILY MICHAEL Gabapentin (Gabapentin 300 Mg Capsule) 300 mg PO TID MICHAEL Glucose (Glucose Gel 15 Gm Gel..Gram.) 15 gm PO Q15M PRN; Protocol PRN Reason: per Hypoglycemia Standing Ord. Insulin Glargine (Insulin Glargine,Hum.Rec.Anlog 100 Unit/Ml 10 Ml Vial) 15 unit SUBCUT DAILY [facility] Insulin Human Lispro (Insulin Lispro 100 Unit/Ml 3 Ml Vial) 0 unit SUBCUT QIDACHS MICHAEL; Protocol Metoprolol Succinate (Metoprolol Succinate Er 25 Mg Tab.Er.24h) 25 mg PO BID [facility]; Protocol Multivitamins/Vitamin C (Multivitamin Tablet) 1 tab PO DAILY [facility] Ondansetron HCl (Ondansetron Hcl 4 Mg/2 Ml Vial) 4 mg IVPUSH Q8H PRN PRN Reason: Nausea and Vomiting Pharmacy Consult (Consult Rx Perform Med Rec) 1 each MISCELLANE ONCE PRN PRN Reason: Consult order Pharmacy Consult (Consult Rx Perform Med Rec) 1 each MISCELLANE ONCE PRN PRN Reason: Consult order Sodium Chloride (0.9 % Sodium Chloride Flush 3 Ml Syringe) 3 ml IVFLUSH QSHIFT [facility] Sotalol HCl (Sotalol Hcl 120 Mg Tablet) 60 mg PO BID [facility] Home Medications Medication Instructions Recorded Confirmed Last Taken Type lancets 28 gauge (FreeStyle #100 ea 04/18/20 08/21/22 Unknown History Lancets) metformin 1,000 mg tablet 1,000 mg PO BID 04/18/20 11/05/22 11/05/22 History pen needle, diabetic 31 gauge x #1,200 ea 04/18/20 08/21/22 Unknown History 16 insulin glargine 100 unit/mL (3 20 unit subcut DAILY 07/04/20 11/05/22 11/05/22 History mL) subcutaneous pen amitriptyline 10 mg tablet 10 mg PO BEDTIME 10/05/20 11/05/22 11/04/22 History atorvastatin 10 mg tablet 10 mg PO BEDTIME 10/05/20 11/05/22 11/04/22 History blood sugar diagnostic (FreeStyle #10 ea 10/05/20 08/21/22 Unknown History Test strips) gabapentin 300 mg capsule 300 mg PO TID 10/05/20 11/05/22 11/05/22 History multivitamin 1 tab PO DAILY 01/09/21 11/05/22 11/05/22 History losartan 50 mg tablet 50 mg PO DAILY 11/05/22 11/05/2223 History Physical Exam Vital Signs and Narrative: Vital Signs: Last Vital Signs Temp 97.5 F 11/05/22 10:19 Pulse 89 11/05/22 14:09 Resp 18 11/05/22 14:09 BP 100/63 11/05/22 14:09 Pulse Ox 94 11/05/22 14:09 O2 Del Method Room Air 11/05/22 14:09 Oxygen Flow Rate 2 11/05/22 11:40 BMI result Body Mass Index 17.0 Constitutional - Awake and Alert, No apparent distress Eyes - PERRLA, EOMI Cardiovascular - S1S2, RRR, No edema Respiratory - Normal lung expansion, Normal respiratory effort, No respiratory distress, scattered crackles bilaterally with diminished LLL Gastrointestinal - NT / ND; +BS; No rebound or guarding Extremities - no calf tenderness bilaterally, no swelling Skin - Warm/Dry Neurological - Alert & oriented x3 Psychological - Appropriate affect Results Labs 11/05/22 10:00 11/05/22 10:00 Labs: Laboratory Results - last 24 hr 11/05/22 11/05/22 11/05/22 10:00 10:00 10:00 MCV 98.8 H MCH 32.5 MCHC 32.9 RDW 13.4 Plt Count 154 L MPV 10.9 Immature Gran % (Auto) 0.2 Neut % (Auto) 63.9 Lymph % (Auto) 22.6 [place] % (Auto) 9.5 Eos % (Auto) 3.0 Baso % (Auto) 0.8 Lymph # (Auto) 2.2 [place] # (Auto) 0.9 Eos # (Auto) 0.3 Baso # (Auto) 0.1 Abs Immat Gran (auto) 0.02 Absolute Neuts (auto) 6.1 Absolute Nucleated RBC 0.000 Nucleated RBC % (auto) 0.0 PT 12.5 INR 1.1 APTT 40.4 H Anion Gap 16 Estim Creat Clear Calc 43.6 Estimated GFR 56 Random Glucose 185 H Calcium 10.1 D Total Bilirubin 0.5 Direct Bilirubin 0.2 AST 20 ALT 19 Alkaline Phosphatase 65 Total Creatine Kinase 98 Troponin I High Sens B-Natriuretic Peptide Total Protein 6.6 Albumin 3.9 Amylase 38 Lipase 15 Stool Occult Blood 11/05/22 11/05/22 11/05/22 10:00 10:00 13:24 MCV MCH MCHC RDW Plt Count MPV Immature Gran % (Auto) Neut % (Auto) Lymph % (Auto) [place] % (Auto) Eos % (Auto) Baso % (Auto) Lymph # (Auto) [place] # (Auto) Eos # (Auto) Baso # (Auto) Abs Immat Gran (auto) Absolute Neuts (auto) Absolute Nucleated RBC Nucleated RBC % (auto) PT INR APTT Anion Gap Estim Creat Clear Calc Estimated GFR Random Glucose Calcium Total Bilirubin Direct Bilirubin AST ALT Alkaline Phosphatase Total Creatine Kinase Troponin I High Sens 28.2 B-Natriuretic Peptide 569 H Total Protein Albumin Amylase Lipase Stool Occult Blood NEGATIVE 11/05/22 13:57 MCV MCH MCHC RDW Plt Count MPV Immature Gran % (Auto) Neut % (Auto) Lymph % (Auto) [place] % (Auto) Eos % (Auto) Baso % (Auto) Lymph # (Auto) [place] # (Auto) Eos # (Auto) Baso # (Auto) Abs Immat Gran (auto) Absolute Neuts (auto) Absolute Nucleated RBC Nucleated RBC % (auto) PT INR APTT Anion Gap Estim Creat Clear Calc Estimated GFR Random Glucose Calcium Total Bilirubin Direct Bilirubin AST ALT Alkaline Phosphatase Total Creatine Kinase Troponin I High Sens 24.9 B-Natriuretic Peptide Total Protein Albumin Amylase Lipase Stool Occult Blood Imaging Radiologist's Impressions: Impressions Chest X-Ray 11/05/22 12:44 IMPRESSION: Left lower lobe pneumonia. Follow-up until resolution is advised. Cervical Spine CT 11/05/22 13:03 IMPRESSION: Head: There is a small focus of subcutaneous soft tissue swelling involving the scalp near the vertex. The underlying calvarium is intact. No acute intracranial hemorrhage. Cervical spine: No acute cervical spine fracture. There is multilevel degenerative spondylosis of the cervical spine with at least moderate canal stenosis at C5-C6 and C6-C7. If there are clinical symptoms of compressive myelopathy then a dedicated cervical spine MRI can be obtained for better anatomic characterization of the cord and canal. Head CT 11/05/22 13:03 IMPRESSION: Head: There is a small focus of subcutaneous soft tissue swelling involving the scalp near the vertex. The underlying calvarium is intact. No acute intracranial hemorrhage. Cervical spine: No acute cervical spine fracture. There is multilevel degenerative spondylosis of the cervical spine with at least moderate canal stenosis at C5-C6 and C6-C7. If there are clinical symptoms of compressive myelopathy then a dedicated cervical spine MRI can be obtained for better anatomic characterization of the cord and canal. Assessment and Plan (1) Pneumonia: Status: Acute (2) Weakness: Status: Acute (3) Decompensated heart failure: Status: Acute (4) Atrial flutter with rapid ventricular response: Status: Acute Plan 67-year-old male with history of hypertension, hyperlipidemia, paroxysmal atrial fibrillation with ICD please, insulin-dependent type 2 diabetes, DG compliant with CPAP, HFrEF, nonischemic cardiomyopathy admitted for rapid atrial flutter with decompensated heart failure. #Atrial flutter with RVR -Failed digoxin in ED. Now maintaining NSR, rate controlled in 80s s/p cardioversion -Initiate sotalol 80mg daily per protocol (renally adjusted per protocol) -Perform EKG to evaluate QTC 2 hours post sotalol administration daily times 5-6 doses -monitor BMP, magnesium, calcium levels daily -continue Eliquis b.i.d. -hold metoprolol for now -Echocardiogram -Appreciate cardiology input -monitor on telemetry # decompensated heart failure -HFrEF with history nonischemic cardiomyopathy -receive 20 mg IV Lasix in ED. Hold on additional diuresis for now -strict I&O -cardiac diet -cardiology input appreciated -echocardiogram -monitor on telemetry #Acute LLL pneumonia -has new onset dry cough, afebrile, no leukocytosis. Tachycardia due to above, not sepsis -CXR LLL pneumonia -IV ceftriaxone and doxycycline (initiated 11/05) -symptomatic management # insulin-dependent type 2 diabetes -dose adjusted basal insulin -POC glucose -diabetic diet -Humalog on sliding scale -continue Jardiance, hold metformin # hypertension -blood pressure soft -continue sotalol as above. Hold losartan, metoprolol # HLD -continue statin # DG -CPAP nightly # cigarette smoker -smokes 3 cigarettes daily -necrotic gum for NRT -smoking cessation advised DVT prophylaxis-on Eliquis Full code Patient requires inpatient stay at least 2 midnights for management of atrial flutter with RVR s/p cardioversion with newly initiated antiarrhythmic as well as for monitoring of decompensated heart failure with expert consultation Time Spent With Patient Time: Total time managing care of this patient today ____ minutes. Quality Stroke Does the patient have a stroke diagnosis?: No VTE Prior VTE?: No VTE Risk Level:: Medical - low VTE Device Contraindication: Treatment Not Indicated VTE Drug Contraindication: N/A - Med Ordered
[2022-11-05 15:37] LABS: Magnesium 1.9 mg/dL (1.6-2.6)
[2022-11-05 15:58] LABS: TSH reflex Free T4 2.14 uIU/mL (0.32-4.0)
--- NOTE | 2022-11-05 16:40 | PC.NURSE ---
Report given to Mignon on C
[2022-11-05 17:14] LABS: Glucose, Whole Blood 87 mg/dL (60-115)
[2022-11-05] MEDS: Doxycycline Monohydrate 100 MG CAPSULE PO (17:46)
--- NOTE | 2022-11-05 18:30 | PC.NURSE ---
Addendum entered by Dianna Milian RN 11/05/22 18:38: Pt LS crackles in bilateral bases. On room air saturating 94%. Original Note: Pt arrived to unit from ED at approximately 1600. At this time Pt A&Ox3 Sami speaking only daughter in room helping with translation, saxophone assembler offered, pt declined. Pt NSR on tele, denies SOB and dizziness. Pt able to walk to bathroom with supervision to void. Pt denies pain this time. All safety measures in place, pt resting comfortably in bed VSS.
[2022-11-05] MEDS: Sotalol HCL 80 MG TABLET PO (19:27)
[2022-11-05] MEDS: Gabapentin 300 MG CAPSULE PO (20:17)
[2022-11-05] MEDS: Insulin Lispro 100 UNIT/ML 3 ML VIAL SUBCUT (20:18)
[2022-11-05] MEDS: Apixaban 5 MG TABLET PO (20:18)
[2022-11-05] MEDS: Amitriptyline HCl 10 MG TABLET PO (20:18)
[2022-11-05] MEDS: Atorvastatin Calcium 10 MG TABLET PO (20:18)
[2022-11-05 20:24] LABS: Glucose, Whole Blood 171 mg/dL (60-115)
[2022-11-06 03:05] VITALS: BP 143/88; PULSE 71; RESP 18; TEMP 36.2; O2SAT 97
[2022-11-06] MEDS: Doxycycline Monohydrate 100 MG CAPSULE PO ×2 (05:30→17:44)
[2022-11-06 06:07] LABS: MANUAL DIFF FLAG NO
[2022-11-06 06:31] LABS: Basophils Absolute Auto 0.1 X10*3/uL (0.0-0.2); Basophils Percent Auto 1.2 % (0-2); Eosinophils Absolute Auto 0.4 X10*3/uL (0.0-0.4); Eosinophils Percent Auto 4.7 % (0-4); Hematocrit 48.4 % (42.0-52.0); Hemoglobin 16.4 g/dl (14.0-18.0); Imm Gran Abs Auto 0.03 X10*3/uL (0.00-0.03); Imm Gran Pct Auto 0.4 % (0.0-0.4); Lymphocytes Absolute Auto 2.3 X10*3/uL (1.2-4.9); Lymphocytes Percent Auto 27.7 % (20-40); Mean Corpuscular HGB Conc 33.9 g/dl (31.0-36.0); Mean Corpuscular Hemoglobin 32.4 pg (27.0-33.0); Mean Corpuscular Volume 95.7 fL (80.0-98.0); Mean Platelet Volume 10.6 fL (9.4-12.4); Monocytes Absolute Auto 0.8 X10*3/uL (0.1-1.2); Neutrophils Absolute Auto 4.6 x10*3/uL (2.0-8.3); Platelet Count 127 X10*3/uL (160-400); Red Blood Count 5.06 X10*6/uL (4.60-5.80); Red Cell Distribution Width 13.3 % (11.0-16.0); White Blood Count 8.1 X10*3/uL (4.8-10.8)
[2022-11-06 06:35] LABS: Anion Gap 15 (12-20); Blood Urea Nitrogen 20 mg/dL (9-16); Calcium 8.9 mg/dL (8.4-10.2); Carbon Dioxide 19 mmol/L (22-29); Chloride 109 mmol/L (96-108); Creatinine Clr Calc Pharmacy 74.5; Estimated Glomerular Filt Rate > 60; Glucose Random 71 mg/dL (60-115); Magnesium 1.9 mg/dL (1.6-2.6); Sodium 139 mmol/L (135-145)
--- NOTE | 2022-11-06 07:00 | CA_ITS ---
Transthoracic Echocardiogram Patient (Last, First, Middle): Shaka Kang A Gender: Male Date of : 1955 Age: 67 Procedure Date: 11/06/2022 Procedure Type: Transthoracic Echocardiogram [place] [facility] [place] Height: 182.88 cm Weight: 56.7 kg BSA: 1.74 m2 Heart Rate: 80 bpm BP: 143 / 88 mmHg Controls Designer: SB Referring MD: Porsche NEGRO Residential Aide: Gabriel Cassidy MD Symptoms: aflutter Study Quality: Adequate ECG Rhythm: Sinus Conclusions: - 1. Mildly reduced LVEF of 45-50% with impaired relaxation filling pattern 2. Normal cardiac valvular Doppler 3. No pericardial effusion Findings Left Ventricle Normal left ventricular cavity size. There is normal left ventricular wall thickness. The left ventricular systolic function is mildly decreased. The visually estimated ejection fraction is between 45-50%. Spectral Doppler is indicative of an impaired relaxation filling pattern. E/E prime ratio is between 8 and 15 consistent with indeterminate filling pressures. Right Ventricle Normal right ventricular cavity size and systolic function. There is an ICD wire seen in the right ventricle. Atria The left atrium is likely dilated. There is no evidence of interatrial shunt. The right atrium is normal in size. Aortic Valve Normal aortic valve structure and function. There is no aortic valve stenosis. There is no aortic valve regurgitation. Mitral Valve There is mild anterior and posterior mitral leaflet thickening. There is trace mitral valve regurgitation. There is no mitral valve stenosis. Pulmonic Valve The pulmonic valve is likely normal. There is trace to mild pulmonic valve regurgitation. Tricuspid Valve Normal tricuspid valve structure. Tricuspid regurgitation envelope is inadequate for calculation of right ventricular systolic pressure. Normal right atrial pressure. Great Vessels All visible segments of the aorta are normal in size. The pulmonary artery was not well visualized. Venous The inferior vena cava is normal in size and collapses greater than 50% with inspiration. Pericardium/Pleural There is no evidence of pericardial effusion. Prior Study Comparison Changes noted compared to prior study dated: 07/30/2022. LV systolic function is mildly reduced Measurements 2D Linear Measurements IVSd: 1.32 0.6-0.9/0.6-1.0 cm LVIDd: 4.72 3.9-5.3/4.2-5.9 cm LVIDd Index: 2.71 2.4-3.2/2.2-3.1 cm/m2 LVIDs: 3.38 2.0-3.6 cm LVPWd: 0.85 0.7-1.1 cm LA Diam: 3.80 2.7-3.8/3.0-4.0 cm LAIDs Index: 2.18 1.5-2.3 cm/m2 LV Mass: 230.36 67-162/88-224 g LV Mass Index: 132.39 43-95/49-115 g/m2 LVOT Diam: 2.30 3.0+(-)1.3 cm 2D Systolic Function EF 4C: 52.00 >55% EF 2C: 46.90 >55% EF BiP: 48.20 >55% Mitral Valve MV Pk E: 0.45 MV PK A: 0.70 E/A: 0.60 E'Lateral: 4.13 E'Medial: 3.48 E/E' Med: 12.90 E/E' Lat: 10.90 Aortic Valve AoV Pk Yung: 0.74 AoV Pk Grad: 2.00 AMY: 3.73 LVOT LVOT Pk Yung: 0.67 LVOT Mn Yung: 0.46 LVOT VTI: 0.13 LVOT Pk Grad: 2.00 LVOT Mn Grad: 1.00 LVOT Diam: 2.30 LVOT Area: 4.15 Diastolic Function MV Pk E: 0.45 MV Pk A: 0.70 E/A: 0.60 E'Medial: 3.48 E/E' Med: 12.90 E' Laterial: 4.13 E/E' Lat: 10.90 Right Ventricle TAPSE (mm): 22.20 TVS' Yung: 16.80 Tricuspid Valve RA Press: 3.00 Great Vessels Aorta Sinus of Valsalva: 4.00 2.0-3.5 cm Ao Asc: 3.60 2.1-3.4 cm Pulmonary Valve PV Pk Yung: 1.20 Peak PV Grad: 6.00 Updated in Other Vendor System with Status of Final Gabriel Cassidy MD electronically signed on 11/06/2022 12:28:34 PM with status of Final
[2022-11-06 07:31] LABS: Glucose, Whole Blood 95 mg/dL (60-115)
[2022-11-06 07:49] VITALS: BP 124/76; PULSE 80; RESP 20; TEMP 36.3; O2SAT 96
--- NOTE | 2022-11-06 09:42 | ECG_ITS ---
Test Reason : SOTOLOL Blood Pressure : / mmHG Vent. Rate : 076 BPM Atrial Rate : 076 BPM P-R Int : 142 ms QRS Dur : 094 ms QT Int : 398 ms P-R-T Axes : 046 073 057 degrees QTc Int : 447 ms Normal sinus rhythm Normal ECG When compared with ECG of 05-NOV-2022 16:10, No significant change was found Referred By: Rubens Major Electronically Signed By:PEPITO VELÁSQUEZ MD
--- NOTE | 2022-11-06 09:43 | P.PNIM_ITS ---
Subjective Subjective Date of Service: 11/06/22 Interval History: no complaints Physical Exam Vital Signs: Vital Signs: Last Vital Signs Temp 97.3 F 11/06/22 07:49 Pulse 80 11/06/22 07:49 Resp 20 11/06/22 07:49 BP 124/76 11/06/22 07:49 Pulse Ox 96 11/06/22 07:49 O2 Del Method Room Air 11/06/22 07:49 Oxygen Flow Rate 2 11/05/22 11:40 BMI result Body Mass Index 17.0 General: AO X 3, no acute distress Resp: CTA bilateral, no accessory muscles used CVS: S1,S2,RRR GI: soft, non tender, non distended Neuro: motor grossly intact, alert Psych: appropriate affect, appropriate insight Objective Data Active Medications Acetaminophen (Acetaminophen 325 Mg Tablet) 650 mg PO Q6H PRN PRN Reason: Pain, Mild (Pain Scale 1-3) Amitriptyline HCl (Amitriptyline Hcl 10 Mg Tablet) 10 mg PO BEDTIME [facility] Last Admin: 11/05/22 20:18 Dose: 10 mg Documented By: GUILLEROM Apixaban (Apixaban 5 Mg Tablet) 5 mg PO BID [facility] Last Admin: 11/05/22 20:18 Dose: 5 mg Documented By: GUILLERMO Atorvastatin Calcium (Atorvastatin Calcium 10 Mg Tablet) 10 mg PO BEDTIME [facility] Last Admin: 11/05/22 20:18 Dose: 10 mg Documented By: GUILLERMO Dextrose (Dextrose 50 % 25 Gm/50 Ml Syringe) 25 gm IVPUSH Q15M PRN; Protocol PRN Reason: per Hypoglycemia Standing Ord. Docusate Sodium (Docusate Sodium 100 Mg Capsule) 100 mg PO DAILY PRN PRN Reason: Constipation Doxycycline Monohydrate (Doxycycline Monohydrate 100 Mg Capsule) 100 mg PO Q12H [facility] Last Admin: 11/06/22 05:30 Dose: 100 mg Documented By: LEXY Empagliflozin (Empagliflozin 25 Mg Tablet) 25 mg PO DAILY [facility] Gabapentin (Gabapentin 300 Mg Capsule) 300 mg PO TID [facility] Last Admin: 11/05/22 20:17 Dose: 300 mg Documented By: GUILLERMO Glucose (Glucose Gel 15 Gm Gel..Gram.) 15 gm PO Q15M PRN; Protocol PRN Reason: per Hypoglycemia Standing Ord. Ceftriaxone Sodium 1 gm/ (Sodium Chloride) 50 mls @ 100 mls/hr IV Q24H [facility] Last Infusion: 11/05/22 18:18 Dose: 0 mls/hr Documented By: JUANIS Insulin Glargine (Insulin Glargine,Hum.Rec.Anlog 100 Unit/Ml 10 Ml Vial) 15 unit SUBCUT DAILY [facility] Insulin Human Lispro (Insulin Lispro 100 Unit/Ml 3 Ml Vial) 0 unit SUBCUT QIDACHS [facility]; Protocol Last Admin: 11/05/22 20:18 Dose: 2 unit Documented By: GUILLERMO Multivitamins/Vitamin C (Multivitamin Tablet) 1 tab PO DAILY [facility] Ondansetron HCl (Ondansetron Hcl 4 Mg/2 Ml Vial) 4 mg IVPUSH Q8H PRN PRN Reason: Nausea and Vomiting Pharmacy Consult (Consult Rx Perform Med Rec) 1 each MISCELLANE ONCE PRN PRN Reason: Consult order Pharmacy Consult (Consult Rx Perform Med Rec) 1 each MISCELLANE ONCE PRN PRN Reason: Consult order Sodium Chloride (0.9 % Sodium Chloride Flush 3 Ml Syringe) 3 ml IVFLUSH QSHIFT [facility] Last Admin: 11/06/22 00:50 Dose: Not Given Documented By: LEXY Non-Admin Reason: Previously Administered Sotalol HCl (Sotalol Hcl 80 Mg Tablet) 80 mg PO DAILY [facility] Labs 11/06/22 05:51 11/06/22 05:51 Labs: Laboratory Results - last 24 hr 11/05/22 11/05/22 11/05/22 10:00 10:00 10:00 MCV 98.8 H MCH 32.5 MCHC 32.9 RDW 13.4 Plt Count 154 L MPV 10.9 Immature Gran % (Auto) 0.2 Neut % (Auto) 63.9 Lymph % (Auto) 22.6 [place] % (Auto) 9.5 Eos % (Auto) 3.0 Baso % (Auto) 0.8 Lymph # (Auto) 2.2 [place] # (Auto) 0.9 Eos # (Auto) 0.3 Baso # (Auto) 0.1 Abs Immat Gran (auto) 0.02 Absolute Neuts (auto) 6.1 Absolute Nucleated RBC 0.000 Nucleated RBC % (auto) 0.0 PT 12.5 INR 1.1 APTT 40.4 H Anion Gap 16 Estim Creat Clear Calc 43.6 Estimated GFR 56 POC Glucose Random Glucose 185 H Calcium 10.1 D Magnesium 1.9 Total Bilirubin 0.5 Direct Bilirubin 0.2 AST 20 ALT 19 Alkaline Phosphatase 65 Total Creatine Kinase 98 Troponin I High Sens B-Natriuretic Peptide Total Protein 6.6 Albumin 3.9 Amylase 38 Lipase 15 TSH 2.14 Stool Occult Blood 11/05/22 11/05/22 11/05/22 10:00 10:00 13:24 MCV MCH MCHC RDW Plt Count MPV Immature Gran % (Auto) Neut % (Auto) Lymph % (Auto) [place] % (Auto) Eos % (Auto) Baso % (Auto) Lymph # (Auto) [place] # (Auto) Eos # (Auto) Baso # (Auto) Abs Immat Gran (auto) Absolute Neuts (auto) Absolute Nucleated RBC Nucleated RBC % (auto) PT INR APTT Anion Gap Estim Creat Clear Calc Estimated GFR POC Glucose Random Glucose Calcium Magnesium Total Bilirubin Direct Bilirubin AST ALT Alkaline Phosphatase Total Creatine Kinase Troponin I High Sens 28.2 B-Natriuretic Peptide 569 H Total Protein Albumin Amylase Lipase TSH Stool Occult Blood NEGATIVE 11/05/22 11/05/22 11/05/22 13:57 17:10 19:32 MCV MCH MCHC RDW Plt Count MPV Immature Gran % (Auto) Neut % (Auto) Lymph % (Auto) [place] % (Auto) Eos % (Auto) Baso % (Auto) Lymph # (Auto) [place] # (Auto) Eos # (Auto) Baso # (Auto) Abs Immat Gran (auto) Absolute Neuts (auto) Absolute Nucleated RBC Nucleated RBC % (auto) PT INR APTT Anion Gap Estim Creat Clear Calc Estimated GFR POC Glucose 87 171 H Random Glucose Calcium Magnesium Total Bilirubin Direct Bilirubin AST ALT Alkaline Phosphatase Total Creatine Kinase Troponin I High Sens 24.9 B-Natriuretic Peptide Total Protein Albumin Amylase Lipase TSH Stool Occult Blood 11/06/22 11/06/22 11/06/22 05:51 05:51 07:22 MCV 95.7 MCH 32.4 MCHC 33.9 RDW 13.3 Plt Count 127 L MPV 10.6 Immature Gran % (Auto) 0.4 Neut % (Auto) 56.0 Lymph % (Auto) 27.7 [place] % (Auto) 10.0 Eos % (Auto) 4.7 H Baso % (Auto) 1.2 Lymph # (Auto) 2.3 [place] # (Auto) 0.8 Eos # (Auto) 0.4 Baso # (Auto) 0.1 Abs Immat Gran (auto) 0.03 Absolute Neuts (auto) 4.6 Absolute Nucleated RBC 0.000 Nucleated RBC % (auto) 0.0 PT INR APTT Anion Gap 15 Estim Creat Clear Calc 74.5 Estimated GFR > 60 POC Glucose 95 Random Glucose 71 Calcium 8.9 D Magnesium 1.9 Total Bilirubin Direct Bilirubin AST ALT Alkaline Phosphatase Total Creatine Kinase Troponin I High Sens B-Natriuretic Peptide Total Protein Albumin Amylase Lipase TSH Stool Occult Blood Assessment and Plan (1) Atrial flutter: Status: Acute Plan 67M PMH hypertension, hyperlipidemia, paroxysmal atrial fibrillation, insulin- dependent type 2 diabetes, DG, HFrEF, nonischemic cardiomyopathy admitted for rapid atrial flutter with decompensated heart failure. paroxysmal Atrial flutter with RVR s/p cardioversion started on sotalol, monitor ekgs eliquis decompensated heart failure due to above HFrEF with history nonischemic cardiomyopathy s/p iv diuresis in ED Acute LLL pneumonia IV ceftriaxone and doxycycline (initiated 11/05) type 2 diabetes basal bolus insulin continue Jardiance, hold metformin hypertension blood pressure soft continue sotalol as above.? Hold losartan, metoprolol HLD statin DG CPAP nightly cigarette smoker necrotic gum for NRT smoking cessation advised DVT prophylaxis-on Eliquis Full code reason for continued hospitalization: stolalol monitoring Time Spent With Patient Time: Total time managing care of this patient today ____ minutes. Quality Stroke Does the patient have a stroke diagnosis?: No VTE Prior VTE?: No VTE Risk Level:: Medical - low VTE Device Contraindication: Treatment Not Indicated VTE Drug Contraindication: N/A - Med Ordered
--- NOTE | 2022-11-06 10:10 | PM.PNCARD ---
Subjective Subjective Date of Service: 11/06/22 Principal diagnosis: CHF, rapid atrial flutter. Interval history: Patient doing well since yesterday since cardioversion. Started on sotalol therapy for rhythm control. Overnight had 1 very brief episode of SVT run consistent with atrial fibrillation. Overall tolerating sotalol therapy with QT intervals within normal limits. Says he feels a lot better. Blood pressure is stabilized. No lightheadedness. History was obtained with help of bull gang worker. Review of Systems Review of Systems Yes all other systems are reviewed and are negative Physical Exam Vital Signs: Last Vital Signs Temp 97.3 F 11/06/22 07:49 Pulse 80 11/06/22 07:49 Resp 20 11/06/22 07:49 BP 124/76 11/06/22 07:49 Pulse Ox 96 11/06/22 07:49 O2 Del Method Room Air 11/06/22 07:49 Oxygen Flow Rate 2 11/05/22 11:40 BMI result Body Mass Index 17.0 Const General: cooperative, comfortable, no acute distress, alert, awake and Physically active Nutritional Appearance: thin Orientation/consciousness: patient oriented x3 Neck Neck: Yes trachea midline, Yes supple and Yes no JVD Resp Effort & Inspection: normal respiratory effort Auscultation: clear to auscultation bilaterally Cardio Jugular venous distension: no JVD Palpation: normal PMI Rate: regular rate Rhythm: regular rhythm Heart sounds: S1 normal heart sound present, S2 normal heart sound present, no click, no gallops, no murmurs and no rubs Skin General skin exam: no rashes or lesions noted Neuro General: patient oriented x3 and no focal motor deficits Extrem General: Yes no clubbing, cyanosis or edema Objective Labs and Meds 11/06/22 05:51 11/06/22 05:51 Lab results: Laboratory Results - last 24 hr 11/05/22 11/05/22 11/05/22 10:00 10:00 10:00 WBC 9.6 RBC 5.11 Hgb 16.6 Hct 50.5 MCV 98.8 H MCH 32.5 MCHC 32.9 RDW 13.4 Plt Count 154 L MPV 10.9 Immature Gran % (Auto) 0.2 Neut % (Auto) 63.9 Lymph % (Auto) 22.6 [place] % (Auto) 9.5 Eos % (Auto) 3.0 Baso % (Auto) 0.8 Lymph # (Auto) 2.2 [place] # (Auto) 0.9 Eos # (Auto) 0.3 Baso # (Auto) 0.1 Abs Immat Gran (auto) 0.02 Absolute Neuts (auto) 6.1 Absolute Nucleated RBC 0.000 Nucleated RBC % (auto) 0.0 PT 12.5 INR 1.1 APTT 40.4 H Sodium 143 Potassium 4.7 Chloride 107 Carbon Dioxide 25 Anion Gap 16 BUN 31 H Creatinine 1.28 Estim Creat Clear Calc 43.6 Estimated GFR 56 POC Glucose Random Glucose 185 H Calcium 10.1 D Magnesium 1.9 Total Bilirubin 0.5 Direct Bilirubin 0.2 AST 20 ALT 19 Alkaline Phosphatase 65 Total Creatine Kinase 98 Troponin I High Sens B-Natriuretic Peptide Total Protein 6.6 Albumin 3.9 Amylase 38 Lipase 15 TSH 2.14 Stool Occult Blood 11/05/22 11/05/22 11/05/22 10:00 10:00 13:24 WBC RBC Hgb Hct MCV MCH MCHC RDW Plt Count MPV Immature Gran % (Auto) Neut % (Auto) Lymph % (Auto) [place] % (Auto) Eos % (Auto) Baso % (Auto) Lymph # (Auto) [place] # (Auto) Eos # (Auto) Baso # (Auto) Abs Immat Gran (auto) Absolute Neuts (auto) Absolute Nucleated RBC Nucleated RBC % (auto) PT INR APTT Sodium Potassium Chloride Carbon Dioxide Anion Gap BUN Creatinine Estim Creat Clear Calc Estimated GFR POC Glucose Random Glucose Calcium Magnesium Total Bilirubin Direct Bilirubin AST ALT Alkaline Phosphatase Total Creatine Kinase Troponin I High Sens 28.2 B-Natriuretic Peptide 569 H Total Protein Albumin Amylase Lipase TSH Stool Occult Blood NEGATIVE 11/05/22 11/05/22 11/05/22 13:57 17:10 19:32 WBC RBC Hgb Hct MCV MCH MCHC RDW Plt Count MPV Immature Gran % (Auto) Neut % (Auto) Lymph % (Auto) [place] % (Auto) Eos % (Auto) Baso % (Auto) Lymph # (Auto) [place] # (Auto) Eos # (Auto) Baso # (Auto) Abs Immat Gran (auto) Absolute Neuts (auto) Absolute Nucleated RBC Nucleated RBC % (auto) PT INR APTT Sodium Potassium Chloride Carbon Dioxide Anion Gap BUN Creatinine Estim Creat Clear Calc Estimated GFR POC Glucose 87 171 H Random Glucose Calcium Magnesium Total Bilirubin Direct Bilirubin AST ALT Alkaline Phosphatase Total Creatine Kinase Troponin I High Sens 24.9 B-Natriuretic Peptide Total Protein Albumin Amylase Lipase TSH Stool Occult Blood 11/06/22 11/06/22 11/06/22 05:51 05:51 07:22 WBC 8.1 RBC 5.06 Hgb 16.4 Hct 48.4 MCV 95.7 MCH 32.4 MCHC 33.9 RDW 13.3 Plt Count 127 L MPV 10.6 Immature Gran % (Auto) 0.4 Neut % (Auto) 56.0 Lymph % (Auto) 27.7 [place] % (Auto) 10.0 Eos % (Auto) 4.7 H Baso % (Auto) 1.2 Lymph # (Auto) 2.3 [place] # (Auto) 0.8 Eos # (Auto) 0.4 Baso # (Auto) 0.1 Abs Immat Gran (auto) 0.03 Absolute Neuts (auto) 4.6 Absolute Nucleated RBC 0.000 Nucleated RBC % (auto) 0.0 PT INR APTT Sodium 139 Potassium 4.0 Chloride 109 H Carbon Dioxide 19 L Anion Gap 15 BUN 20 H Creatinine 0.75 Estim Creat Clear Calc 74.5 Estimated GFR > 60 POC Glucose 95 Random Glucose 71 Calcium 8.9 D Magnesium 1.9 Total Bilirubin Direct Bilirubin AST ALT Alkaline Phosphatase Total Creatine Kinase Troponin I High Sens B-Natriuretic Peptide Total Protein Albumin Amylase Lipase TSH Stool Occult Blood Imaging Radiologist's impression: Impressions Chest X-Ray 11/05/22 12:44 IMPRESSION: Left lower lobe pneumonia. Follow-up until resolution is advised. Cervical Spine CT 11/05/22 13:03 IMPRESSION: Head: There is a small focus of subcutaneous soft tissue swelling involving the scalp near the vertex. The underlying calvarium is intact. No acute intracranial hemorrhage. Cervical spine: No acute cervical spine fracture. There is multilevel degenerative spondylosis of the cervical spine with at least moderate canal stenosis at C5-C6 and C6-C7. If there are clinical symptoms of compressive myelopathy then a dedicated cervical spine MRI can be obtained for better anatomic characterization of the cord and canal. Head CT 11/05/22 13:03 IMPRESSION: Head: There is a small focus of subcutaneous soft tissue swelling involving the scalp near the vertex. The underlying calvarium is intact. No acute intracranial hemorrhage. Cervical spine: No acute cervical spine fracture. There is multilevel degenerative spondylosis of the cervical spine with at least moderate canal stenosis at C5-C6 and C6-C7. If there are clinical symptoms of compressive myelopathy then a dedicated cervical spine MRI can be obtained for better anatomic characterization of the cord and canal. Progress Note: A&P Assessment and plan (1) Decompensated heart failure: Status: Acute Assessment and Plan: Decompensated congestive heart failure improved after rhythm control. Doing very well from this perspective. Lungs have cleared. Switch losartan to Entresto therapy as blood pressures improved. Also switch to p.o. Lasix 20 mg daily and add Jardiance 10 mg to his regimen. Will use sotalol as a beta-abdulaziz for neurohormonal modulation as well. It check BNP tomorrow. Ambulate today. Will review echocardiogram that has been per 5 bedside today. If remains stable most likely discharge tomorrow. (2) Atrial flutter: Status: Acute Assessment and Plan: Atrial flutter with rapid ventricular response with prior history of paroxysmal atrial fibrillation presenting with decompensated congestive heart failure and hypertension. Currently doing well since cardioversion. Will do well with rhythm control approach. Agree with sotalol therapy at current dose. Continue monitor EKG and sotalol protocol. If stable by tomorrow can be discharged. Continue Eliquis therapy. Will continue to follow with you Time Spent With Patient Time: Total time managing care of this patient today ____ minutes. Progress Note: Quality Stroke Does the patient have a stroke diagnosis?: No Procedures Date of Service Date of Service: 11/06/22
[2022-11-06] MEDS: Apixaban 5 MG TABLET PO ×2 (10:22→20:59)
[2022-11-06] MEDS: Multivitamin TABLET 1 TAB PO (10:22)
[2022-11-06] MEDS: Gabapentin 300 MG CAPSULE PO ×3 (10:22→20:59)
[2022-11-06] MEDS: Empagliflozin 25 MG TABLET PO (10:22)
[2022-11-06] MEDS: Sotalol HCL 80 MG TABLET PO ×2 (10:23→20:58)
[2022-11-06] MEDS: Insulin Glargine,Hum.rec.anlog 100 UNIT/ML 10 ML VIAL 15 UNIT SUBCUT (10:23)
[2022-11-06 10:42] VITALS: BMI 17.9
--- NOTE | 2022-11-06 10:44 | MHC.CM.PN ---
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 PT CERIFIES HIS PCP IS GIANNI MARTINEZ, FULLY VACC FOR COVID 19 AND PT COMPLETED A NEW HCP NAMING HIS DTR KALANI TREJO HIS [facility] AND NO ALTERNATE AT THIS TIME, PT PROVIDED W/EDUCATIONAL HANDOUT IN [place], ORIGINAL AND 2 COPIES. COPY UPLOADED TO [facility] AN PLACED IN CHART. ANTIC D/C HOME W/RESUMP OF [employer] AND ?NEW [facility], FAMILY WILL TRANSPORT
[2022-11-06 11:20] LABS: Glucose, Whole Blood 248 mg/dL (60-115)
[2022-11-06 11:24] VITALS: BP 127/81; PULSE 79; RESP 20; TEMP 36.1; O2SAT 96
[2022-11-06] MEDS: Insulin Lispro 100 UNIT/ML 3 ML VIAL SUBCUT ×2 (12:41→17:44)
[2022-11-06 15:19] LABS: Glucose, Whole Blood 240 mg/dL (60-115)
[2022-11-06 15:27] VITALS: BP 128/78; PULSE 77; RESP 20; TEMP 36.1; O2SAT 94
[2022-11-06 19:27] VITALS: BP 122/63; PULSE 84; RESP 16; TEMP 36.8; O2SAT 95
[2022-11-06 20:26] LABS: Glucose, Whole Blood 79 mg/dL (60-115)
[2022-11-06] MEDS: Amitriptyline HCl 10 MG TABLET PO (20:58)
[2022-11-06] MEDS: Atorvastatin Calcium 10 MG TABLET PO (20:59)
[2022-11-06] MEDS: Sacubitril/Valsartan 24/26 1 TAB TABLET PO (20:59)
--- NOTE | 2022-11-06 21:06 | PC.NURSE ---
Pt had BG of 79. Alert X 4 and talking. Ice cream and OJ given w/ good affect. BG rechecked and was 156. Insulin held.
[2022-11-06 21:14] LABS: Glucose, Whole Blood 156 mg/dL (60-115)
--- NOTE | 2022-11-06 23:40 | ECG_ITS ---
Test Reason : rhytm check Blood Pressure : / mmHG Vent. Rate : 078 BPM Atrial Rate : 078 BPM P-R Int : 144 ms QRS Dur : 092 ms QT Int : 394 ms P-R-T Axes : 061 076 078 degrees QTc Int : 449 ms Normal sinus rhythm Normal ECG When compared with ECG of 06-NOV-2022 09:52, No significant change was found Referred By: Rubens Major Electronically Signed By:PEPITO VELÁSQUEZ MD
[2022-11-07] VITALS: BP 116/63; PULSE 82; RESP 18; TEMP 37; O2SAT 95
[2022-11-07 04:00] VITALS: BP 122/71; PULSE 79; RESP 18; TEMP 36.8; O2SAT 97
[2022-11-07] MEDS: Doxycycline Monohydrate 100 MG CAPSULE PO (05:59)
[2022-11-07 07:00] LABS: B Type Natriuretic Peptide 68 pg/mL (<100)
[2022-11-07 07:20] VITALS: BP 151/68; PULSE 77; RESP 20; TEMP 36.6; O2SAT 95
[2022-11-07 08:06] LABS: Glucose, Whole Blood 130 mg/dL (60-115)
[2022-11-07 08:37] LABS: Blood Urea Nitrogen 22 mg/dL (9-16); Estimated Glomerular Filt Rate > 60; Glucose Random 142 mg/dL (60-115)
[2022-11-07 08:43] LABS: Anion Gap 19 (12-20); Carbon Dioxide 19 mmol/L (22-29); Chloride 102 mmol/L (96-108); Potassium 5.5 mmol/L (3.3-5.1); Sodium 134 mmol/L (135-145)
--- NOTE | 2022-11-07 09:42 | ECG_ITS ---
Test Reason : sotolol Blood Pressure : / mmHG Vent. Rate : 078 BPM Atrial Rate : 078 BPM P-R Int : 144 ms QRS Dur : 088 ms QT Int : 414 ms P-R-T Axes : 044 059 079 degrees QTc Int : 471 ms Normal sinus rhythm Possible Left atrial enlargement Borderline ECG When compared with ECG of 06-NOV-2022 21:35, No significant change was found Referred By: Rubens Major Electronically Signed By:PEPITO VELÁSQUEZ MD
--- NOTE | 2022-11-07 09:43 | P.PNCA_ITS ---
Subjective Subjective Date of Service: 11/07/22 Principal diagnosis: CHF, rapid atrial flutter. Interval history: Patient doing a lot better. Blood pressure today is elevated which is unusual for him. Denies any shortness of breath, palpitations, lightheadedness. No overnight significant arrhythmias. Review of Systems Review of Systems Yes all other systems are reviewed and are negative Physical Exam Vital Signs: Last Vital Signs Temp 97.8 F 11/07/22 07:20 Pulse 77 11/07/22 07:20 Resp 20 11/07/22 07:20 BP 151/68 H 11/07/22 07:20 Pulse Ox 95 11/07/22 07:20 O2 Del Method Room Air 11/07/22 07:20 Oxygen Flow Rate 2 11/05/22 11:40 BMI result Body Mass Index 17.9 Const General: cooperative, comfortable, no acute distress, alert, awake and Physically active Nutritional Appearance: thin Orientation/consciousness: patient oriented x3 Neck Neck: Yes trachea midline, Yes supple and Yes no JVD Resp Effort & Inspection: normal respiratory effort Auscultation: clear to auscultation bilaterally Cardio Jugular venous distension: no JVD Palpation: normal PMI Rate: regular rate Rhythm: regular rhythm Heart sounds: S1 normal heart sound present, S2 normal heart sound present, no click, no gallops, no murmurs and no rubs Skin General skin exam: no rashes or lesions noted Neuro General: patient oriented x3 and no focal motor deficits Extrem General: Yes no clubbing, cyanosis or edema Objective Labs and Meds 11/06/22 05:51 11/07/22 07:39 Lab results: Laboratory Results - last 24 hr 11/06/22 11/06/22 11/06/22 11:12 15:12 20:16 Sodium Potassium Chloride Carbon Dioxide Anion Gap BUN Creatinine Estim Creat Clear Calc Estimated GFR POC Glucose 248 H 240 H 79 Random Glucose Calcium Magnesium B-Natriuretic Peptide 11/06/22 11/07/22 11/07/22 21:05 06:04 07:39 Sodium 134 L Potassium 5.5 H D Chloride 102 Carbon Dioxide 19 L Anion Gap 19 BUN 22 H Creatinine 0.86 Estim Creat Clear Calc 65.0 Estimated GFR > 60 POC Glucose 156 H Random Glucose 142 H Calcium 10.0 D Magnesium 2.0 B-Natriuretic Peptide 68 11/07/22 07:56 Sodium Potassium Chloride Carbon Dioxide Anion Gap BUN Creatinine Estim Creat Clear Calc Estimated GFR POC Glucose 130 H Random Glucose Calcium Magnesium B-Natriuretic Peptide Progress Note: A&P Assessment and plan (1) Paroxysmal atrial flutter: Status: Acute Assessment and Plan: Atrial flutter leading to heart failure and hypotension status post cardioversion. Currently on sotalol therapy tolerating well. Patient can be discharged home on sotalol therapy. Continue full oral anticoagulation with Eliquis. Avoidance of stimulants was discussed. Follow up in the office in 4 weeks after Holter monitor. (2) Decompensated heart failure: Status: Acute Assessment and Plan: Decompensated congestive heart failure with rapid atrial flutter. Currently gabrielle ears euvolemic and well compensated with much improved blood pressure. Continue Entresto as well as Jardiance for neurohormonal modulation. Continue Lasix 20 mg daily. Strict intake and output chart needs to be pursued. Sotalol will be use in place of metoprolol for neurohormonal modulation. Will follow up in the clinic in 4 weeks time, sooner p.r.n.. Thank you for allowing me to partake in his care Time Spent With Patient Time: Total time managing care of this patient today ____ minutes. Progress Note: Quality Stroke Does the patient have a stroke diagnosis?: No Procedures Date of Service Date of Service: 11/07/22
[2022-11-07] MEDS: Apixaban 5 MG TABLET PO (09:47)
[2022-11-07] MEDS: Empagliflozin 25 MG TABLET PO (09:47)
[2022-11-07] MEDS: Sacubitril/Valsartan 24/26 1 TAB TABLET PO (09:47)
[2022-11-07] MEDS: Multivitamin TABLET 1 TAB PO (09:47)
[2022-11-07] MEDS: Gabapentin 300 MG CAPSULE PO (09:47)
[2022-11-07] MEDS: Sotalol HCL 80 MG TABLET PO (09:48)
[2022-11-07] MEDS: Furosemide 20 MG TABLET PO (09:48)
[2022-11-07] MEDS: Insulin Glargine,Hum.rec.anlog 100 UNIT/ML 10 ML VIAL 15 UNIT SUBCUT (09:48)
--- NOTE | 2022-11-07 11:19 | P.DS_ITS ---
DS: Providers Provider Date of Service: 11/07/22 Date of admission: 11/05/22 15:03 Primary care physician: Rita Foley DO Consults: 11/05/22 11:43 Consult to Cardiology Stat Consulting Provider: [facility] [place] Cardiovascular Services Reason for consultation: Tachycardia - A flutter Has provider been notified: Yes DS: Diagnosis Discharge Diagnosis (1) Paroxysmal atrial flutter: Status: Acute (2) Decompensated heart failure: Status: Acute (3) Pneumonia: Status: Acute (4) Weakness: Status: Acute DS: Summary Hospital Course Hospital Course: Admission note HPI 67-year-old male with history of hypertension, hyperlipidemia, paroxysmal atrial fibrillation with ICD please, insulin-dependent type 2 diabetes, DG compliant with CPAP, HFrEF, nonischemic cardiomyopathy presented to the ED earlier today with his daughter for evaluation of shortness of breath and generalized weakness ongoing for about 3 days.? He does also endorse an occasional dry cough over the last 2-3 days.? He also endorses lightheadedness. Denies any known sick contacts.? Denies any fevers, chills sore throat, congestion, abdominal pain, nausea, vomiting, diarrhea, orthopnea, PND, palpitations, or chest pain.? He lives by himself but his daughter routinely checks on him and took his blood pressure this morning and he was hypotensive at 77/53.? On arrival to the ED, patient was hypotensive at 74/45 and was resuscitated with 1 L IV NS with slight improvement in blood pressure the patient developed significant tachycardia to 149 noted monitor and storage bin tender and EKG showed atrial fibrillation, rate 153.? Cardiology was consulted in the ED and the decision was made to perform bedside cardioversion after patient failed to convert with dioxin, IVF.? Patient converted to normal sinus rhythm, rate in the 80s with marked improvement in symptoms. He was also given 20mg IV lasix. Hematology studies were negative for any leukocytosis.? Creatinine 1.28, BUN 31, creatinine clearance 43.6.? Electrolyte levels within normal limits including magnesium of 1.9 and calcium of 10.1.? Hepatic function normal.? Troponin within normal limits.? BNP 569.? TSH level pending.? CXR showed left lower lobe pneumonia but no definitive pleural effusions.? CT of the head/neck negative for any acute intracranial abnormality or any acute cervical spine fracture/subluxation but does show multilevel degenerative spondylosis with at least moderate canal stenosis at C5-C6 and C6-C7. director nicu used to assist in translation Hospital course The patient was admitted for treatment of paroxysmal atrial fibrillation with RvR evaluated by home appliance washing machine mechanic dr Cassidy who did cardioversion with fair control. Started on Sotalol with close monitroing and no reporting complications. Dc MEtoprolol. Noted to be in decompensated heart failure that was treated with IV lasix with good response. started low dose Lasix at time of discharge. started Entresto and Jardiance. Noticed to have left lower lobe pneumonia. treated with Doxycycline and Ceftriaxone. To finish total 1 week of antibiotics at time of discharge as blood cultures negative. Discontinue MEtoprolol and Losartan Start Entresto and Sotalol Lasix as waterpill, Low sodium (salt) diet. Continue antibiotics as prescribed To follow with cardiology closely for monitoring Time Spent with Patient Time attestation: Total time managing care of this patient today ____ minutes. Discharge coordination time: Greater than 30 minutes Quality: Safe Use of Opioids Does Pt have an Active Cancer Diagnosis on the Problem List?: No Quality: Stroke Does the patient have a stroke diagnosis?: No Physical Exam Vital Signs: Vital Signs: Last Vital Signs Temp 97.8 F 11/07/22 07:20 Pulse 77 11/07/22 07:20 Resp 20 11/07/22 07:20 BP 151/68 H 11/07/22 07:20 Pulse Ox 95 11/07/22 07:20 O2 Del Method Room Air 11/07/22 07:20 Oxygen Flow Rate 2 11/05/22 11:40 BMI result Body Mass Index 17.9 Const: Other: Constitutional : Awake, interactive, not in distress Neck : Normal inspection, Supple Cardiovascular : RRR, no JVP, no lower extremity edema Respiratory : good bilateral air entry, no crackles, wheezes or rhonchi Gastrointestinal: soft, lax, Normal bowel sounds, Non tender Skin : Warm, Dry Neurological : Alert & oriented x3, No focal deficit DS: Data Data Completed and Pending Labs on day of discharge: Laboratory Results - last 24 hr 11/06/22 11/06/22 11/06/22 11:12 15:12 20:16 Sodium Potassium Chloride Carbon Dioxide Anion Gap BUN Creatinine Estim Creat Clear Calc Estimated GFR POC Glucose 248 H 240 H 79 Random Glucose Calcium Magnesium B-Natriuretic Peptide 11/06/22 11/07/22 11/07/22 21:05 06:04 07:39 Sodium 134 L Potassium 5.5 H D Chloride 102 Carbon Dioxide 19 L Anion Gap 19 BUN 22 H Creatinine 0.86 Estim Creat Clear Calc 65.0 Estimated GFR > 60 POC Glucose 156 H Random Glucose 142 H Calcium 10.0 D Magnesium 2.0 B-Natriuretic Peptide 68 11/07/22 07:56 Sodium Potassium Chloride Carbon Dioxide Anion Gap BUN Creatinine Estim Creat Clear Calc Estimated GFR POC Glucose 130 H Random Glucose Calcium Magnesium B-Natriuretic Peptide Preliminary micro results at discharge 11/05/22 10:02 Blood Culture - Preliminary Blood - Venous No growth after 24 hours. 11/05/22 10:00 Blood Culture - Preliminary Blood - Venous No growth after 24 hours. Imaging Chest x-ray: Radiologist's impression: ITS Impressions Chest X-Ray 11/05/22 12:44 IMPRESSION: Left lower lobe pneumonia. Follow-up until resolution is advised. Cervical Spine CT 11/05/22 13:03 IMPRESSION: Head: There is a small focus of subcutaneous soft tissue swelling involving the scalp near the vertex. The underlying calvarium is intact. No acute intracranial hemorrhage. Cervical spine: No acute cervical spine fracture. There is multilevel degenerative spondylosis of the cervical spine with at least moderate canal stenosis at C5-C6 and C6-C7. If there are clinical symptoms of compressive myelopathy then a dedicated cervical spine MRI can be obtained for better anatomic characterization of the cord and canal. Head CT 11/05/22 13:03 IMPRESSION: Head: There is a small focus of subcutaneous soft tissue swelling involving the scalp near the vertex. The underlying calvarium is intact. No acute intracranial hemorrhage. Cervical spine: No acute cervical spine fracture. There is multilevel degenerative spondylosis of the cervical spine with at least moderate canal stenosis at C5-C6 and C6-C7. If there are clinical symptoms of compressive myelopathy then a dedicated cervical spine MRI can be obtained for better anatomic characterization of the cord and canal. Discharge Plan Discharge Anticipated Discharge Date/Time: 11/07/22 11:12 Patient Disposition: Home, Self-Care Discharge Diagnosis: Heart failure exacerbation Pneumonia Atrial flutter Referrals: Rita Foley DO [Primary Care Provider] - 1 Week Discharge Medications: New sotalol 80 mg Tablet 80 mg PO BID@0800,2000 Qty: 60 0RF furosemide 20 mg Tablet 20 mg PO DAILY Qty: 30 0RF Protocol: Hold for SBP< HOLD for SBP < : 90 Entresto 24-26 mg Tablet 1 tab PO BID Qty: 60 0RF Protocol: Hold for SBP< HOLD for SBP < : 90 doxycycline monohydrate 100 mg capsule 100 mg PO BID Qty: 10 0RF cefuroxime axetil 500 mg tablet 500 mg PO BID Qty: 10 0RF Continued Eliquis 5 mg tablet 5 mg PO BID Qty: 60 5RF Jardiance 25 mg tablet 25 mg PO DAILY 30 Days Qty: 30 11RF (DME) pen needle, diabetic 31 gauge x 5/16 needle See Rx Instructions .ROUTE .MEDSUPPLY Qty: 1200 Rx Instructions: As directed (DME) lancets [FreeStyle Lancets] 28 gauge misc See Rx Instructions .ROUTE .MEDSUPPLY Qty: 100 Rx Instructions: As directed (DME) FreeStyle Test Strip See Rx Instructions .ROUTE .MEDSUPPLY Qty: 10 Rx Instructions: As directed two times a day multivitamin Tablet 1 tab PO DAILY metformin 1,000 mg tablet 1,000 mg PO BID insulin glargine 100 unit/mL (3 mL) insulin pen 20 unit subcut DAILY amitriptyline 10 mg tablet 10 mg PO BEDTIME atorvastatin 10 mg tablet 10 mg PO BEDTIME gabapentin 300 mg capsule 300 mg PO TID Discontinued metoprolol succinate 25 mg tablet extended release 24 hr 25 mg PO BID Qty: 180 3RF losartan 50 mg tablet 50 mg PO DAILY Discharge Orders: Discharge Order (Routine); Ordered 11/07/22 Ordered By: Stanley Salas Diet: Low salt diet Activity on Discharge: As tolerated Stand Alone Forms: Patient Portal Discharge page Care Plan Goals: Read below Health Concerns: Read below Plan of Treatment: Read below Assessment: You were admitted to the hospital for weakness and difficulties breathing. found to have an evidence of pneumonia with heart failure exacerbation. Treated with water pills, antibiotics and rate control medications as you were evaluated by cardiology with good progress over the course of hospital stay. Discontinue MEtoprolol and Losartan Start Entresto and Sotalol Lasix as waterpill, Low sodium (salt) diet. Continue antibiotics as prescribed To follow with cardiology closely for monitoring
--- NOTE | 2022-11-07 11:21 | MHC.CM.PN ---
PT MEDICALLY CLEARED FOR D/C HOMW W/RESUMP OF [place] DAILY [facility] AND FAMILY FOR TRANSPORT
[2022-11-07 11:29] VITALS: BP 100/67; PULSE 73; RESP 20; TEMP 36.1; O2SAT 95
[2022-11-07 12:03] LABS: Glucose, Whole Blood 184 mg/dL (60-115)
[2022-11-07] MEDS: Insulin Lispro 100 UNIT/ML 3 ML VIAL SUBCUT (13:01)
--- NOTE | 2022-11-08 12:48 | P.F2F_ITS ---
Service Date Service Date: 11/08/22 Encounter Date of encounter: 11/08/22 Reasons for Services Signs and symptoms assessed: Heart failure physical deconditioning Reason for assisted: medication treatment and teach disease management Reason for physical therapy: home safety and mobility and therapeutic exercises Homebound: Leaving the home is medically contraindicated at this time without the asist of a device and/or another person due th the listed conditions above and below. Reason homebound: unsteady gait / fall risk Certification: Based on the above findings, I certify that this patient is confined to the home and needs intermittent assisted care, physical therapy and/or speech therapy, or continues to need occupational therapy. The patient is under my care, and I have initiated the establishment of the plan of care. The patient will be followed by a physician who will periodically review the plan of care. Time Spent With Patient Time: Total time managing care of this patient today ____ minutes.
== END 2022-11-07 13:30 | disposition home or self-care (01) | DRG 308 ==
LOC: HO.ED 14:09 → HO.EDOVER 15:10 → HO.IMC 15:58
PROVIDERS: Internal Medicine; Admitting Provider Physician Assistant; Emergency Provider Emergency Medicine; PCP Family Medicine; Visit Provider Student in an Organized Health Care Education/Training Program
DX: I48.92 Unspecified atrial flutter (principal); I50.23 Acute on chronic systolic (congestive) heart failure; J18.9 Pneumonia, unspecified organism; I48.0 Paroxysmal atrial fibrillation; I11.0 Hypertensive heart disease with heart failure; E11.9 Type 2 diabetes mellitus without complications; G47.33 Obstructive sleep apnea (adult) (pediatric); I42.8 Other cardiomyopathies; F17.210 Nicotine dependence, cigarettes, uncomplicated; Z71.6 Tobacco abuse counseling; Z95.810 Presence of automatic (implantable) cardiac defibrillator; Z79.4 Long term (current) use of insulin; Z79.01 Long term (current) use of anticoagulants; Z79.84 Long term (current) use of oral hypoglycemic drugs; Z79.899 Other long term (current) drug therapy
CPT/HCPCS: 36415; 70450; 71045; 72125; 80048; 80076; 82150; 82272; 82550; 82947; 83690; 83735; 83880; 84443; 84484; 85025; 85610; 85730; 87040; 93005; 93306; 97161; 99285; J0696; J1160; J1940

== ENCOUNTER 2022-11-05 15:03 | Outpatient (BNV) | payer MEDICARE, MEDICAID, SELFPAY | END 2022-11-06 07:00 | PROVIDERS: Admitting Provider Physician Assistant; Emergency Provider Emergency Medicine; PCP Family Medicine; Visit Provider Internal Medicine Cardiovascular Disease | DX: I48.92 Unspecified atrial flutter (principal) | CPT/HCPCS: 93010; 93306 ==

== ENCOUNTER 2022-11-05 15:03 | Outpatient (BNV) | payer MEDICARE, MEDICAID, SELFPAY | END 2022-11-07 09:42 | PROVIDERS: Admitting Provider Physician Assistant; Emergency Provider Emergency Medicine; PCP Family Medicine; Visit Provider Internal Medicine Cardiovascular Disease | DX: R94.31 Abnormal electrocardiogram [ECG] [EKG] (principal) | CPT/HCPCS: 93010 ==

== ENCOUNTER → 2022-11-05 15:03 | Outpatient (BNV) | payer MEDICARE, MEDICAID, SELFPAY | PROVIDERS: Admitting Provider Physician Assistant; Emergency Provider Emergency Medicine; PCP Family Medicine; Visit Provider Physician Assistant | DX: I48.92 Unspecified atrial flutter (principal) | CPT/HCPCS: 99232; 99239; G0180 ==

== ENCOUNTER → 2022-11-12 23:59 | Outpatient (BNV) | payer MEDICARE, MEDICAID, SELFPAY ==
--- NOTE | 2022-11-15 09:11 | MHC.OFFVIS ---
Intake Intake Visit Reasons: Remote HF Monitoring- [facility] Allergies No Known Allergies Allergy (Verified 08/21/22 09:10) PFS Medical History (Updated 11/08/22 @ 00:02 by Chey Chris) Atrial flutter with rapid ventricular response Diabetes mellitus History of cardiomyopathy History of congestive heart failure HLD (hyperlipidemia) HTN (hypertension) Hyperlipidemia ICD (implantable cardioverter-defibrillator) in place Intracardiac thrombus DG (obstructive sleep apnea) Paroxysmal atrial fibrillation Paroxysmal atrial flutter T2DM (type 2 diabetes mellitus) Vitamin D deficiency Surgical History History of eye surgery History of permanent cardiac pacemaker placement Hx of rotator cuff surgery Family History Father No problems noted. Mother No problems noted. Sister CAD (coronary artery disease) Social History Household Members: None Housing: House Do you presently have visiting nurse or other home services: No Alcohol intake: never Patient Tobacco Use Status: Current everyday Tobacco user Tobacco use type: Cigarette e-Cigarette/Vaping Use: Never Used service: No Office Procedures Cardiac Device Check Cardiac Device Check Details: Remote heart failure report generated 11/12/2022. Heart failure parameters are stable [id number] Cardiac Device Interrogation, cardio physiologic monitor Procedure code (CPT) selection complete Assessment & Plan Assessment & Plan Medications: Discontinued sacubitril-valsartan 24-26 mg (Entresto) Discontinued Reason: Doctor's Order 1 tab See Protocol PO BID 60 tabs 0RF losartan 50 mg PO QAM 30 tabs 3RF Coding Level of Care Code Procedure Only Diagnoses CPT Codes Cardiac Device Check - Cardiac Device 15: [id number] Cardiac Device Interrogation, cardio physiologic monitor ([id number])
== END ==
PROVIDERS: PCP Family Medicine; Visit Provider Internal Medicine Cardiovascular Disease
DX: I48.0 Paroxysmal atrial fibrillation (principal); Z95.810 Presence of automatic (implantable) cardiac defibrillator
CPT/HCPCS: 93297

== ENCOUNTER → 2022-11-16 08:53 | Outpatient (REF) | payer MEDICARE, MEDICAID, SELFPAY ==
--- NOTE | 2022-11-16 08:59 | HM_ITS ---
* Total monitoring time 3 days. * Underlying rhythm is sinus. Average ventricular rate 74/Min. Range 56 to 93/Min. * Very rare supraventricular and ventricular ectopy. * No sustained arrhythmias. * No significant pauses or AV blocks. * No patient markers or events in diary. MTDD
== END ==
LOC: HO.CARD 08:53
PROVIDERS: Visit Provider Internal Medicine Cardiovascular Disease
DX: I48.92 Unspecified atrial flutter (principal)
CPT/HCPCS: 93242

== ENCOUNTER → 2022-11-16 08:59 | Outpatient (BNV) | payer MEDICARE, MEDICAID, SELFPAY | PROVIDERS: Visit Provider Internal Medicine | DX: I47.1 Supraventricular tachycardia (principal) | CPT/HCPCS: 93244 ==

== ENCOUNTER → 2022-11-28 23:59 | Outpatient (BNV) | payer MEDICARE, MEDICAID, SELFPAY ==
--- NOTE | 2022-11-28 14:41 | MHC.OFFVIS ---
Intake Intake Visit Reasons: Remote ICD Check- [facility] Allergies No Known Allergies Allergy (Verified 08/21/22 09:10) [facility] Medical History (Updated 11/08/22 @ 00:02 by Chey Chris) Atrial flutter with rapid ventricular response Diabetes mellitus History of cardiomyopathy History of congestive heart failure HLD (hyperlipidemia) HTN (hypertension) Hyperlipidemia ICD (implantable cardioverter-defibrillator) in place Intracardiac thrombus DG (obstructive sleep apnea) Paroxysmal atrial fibrillation Paroxysmal atrial flutter T2DM (type 2 diabetes mellitus) Vitamin D deficiency Surgical History History of eye surgery History of permanent cardiac pacemaker placement Hx of rotator cuff surgery Family History Father No problems noted. Mother No problems noted. Sister CAD (coronary artery disease) Social History Household Members: None Housing: House Do you presently have visiting nurse or other home services: No Alcohol intake: never Patient Tobacco Use Status: Current everyday Tobacco user Tobacco use type: Cigarette e-Cigarette/Vaping Use: Never Used service: No Office Procedures Cardiac Device Check Cardiac Device Check Details: Remote ICD report generated 11/28/2022. ICD function is adequate. Battery life is closer to NICKI. Will follow-up monthly [id number] Cardiac Interrogation, implant defibrillator w/interim Procedure code (CPT) selection complete Assessment & Plan Assessment & Plan Medications: Discontinued losartan 50 mg PO QAM 30 tabs 3RF Coding Level of Care Code Procedure Only Diagnoses CPT Codes Cardiac Device Check - Cardiac Device 13: [id number] Cardiac Interrogation, implant defibrillator w/interim ([id number])
== END ==
PROVIDERS: Visit Provider Internal Medicine Cardiovascular Disease
DX: I42.9 Cardiomyopathy, unspecified (principal); Z95.810 Presence of automatic (implantable) cardiac defibrillator
CPT/HCPCS: 93295

== ENCOUNTER 2022-11-29 08:17 | Outpatient (AMB) | payer MEDICARE, MEDICAID, SELFPAY ==
[2022-11-29 08:35] VITALS: BP 124/76; PULSE 74; BMI 17.4
--- NOTE | 2022-11-29 08:35 | MHC.OFFVIS ---
Intake Vital Signs 11/29/22 08:35 Height 5 ft 10 in Weight 121 lb 4.068 oz BMI 17.4 BP 124/76 Blood Pressure Location Lt brachial Position Sitting Pulse 74 Intake Visit Reasons: Discharge from hospital Intake Note: Follow-up [facility] dc feeling much better Case Checker Required: Yes Case Checker Name: daughter signed Scheduling Manager: Scheduling Manager Present Accompanied by: Daughter Allergies No Known Allergies Allergy (Verified 08/21/22 09:10) Medication List - Last Reviewed 11/29/22 by THERESA Mazariegos amitriptyline 10 mg PO BEDTIME apixaban (Eliquis) 5 mg PO BID atorvastatin 10 mg PO BEDTIME blood sugar diagnostic (FreeStyle Test strips) As directed two times a day empagliflozin (Jardiance) 25 mg PO DAILY 30 days furosemide 20 mg See Protocol PO DAILY gabapentin 300 mg PO TID insulin glargine 20 units subcut DAILY lancets (FreeStyle Lancets) As directed metformin 1,000 mg PO BID multivitamin 1 tab PO DAILY pen needle, diabetic As directed sotalol 80 mg PO BID@0800,2000 valsartan 40 mg PO BID HPI HPI Comments History of Present Illness Details Shaka comes for follow-up. History was obtained with help of her daughter. They declined a certified parts interpreter. Patient has been doing very well. His blood pressures been okay on low-dose valsartan therapy. He is not having any heart failure symptoms. No prolonged palpitations or irregular heartbeat. No lightheadedness, syncope. No ICD discharge. No bleeding issues or neurologic events. Tolerating his medications well. 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 Mother No problems noted. Sister CAD (coronary artery disease) Social History Household Members: None Housing: House Do you presently have visiting nurse or other home services: No Alcohol intake: never Patient Tobacco Use Status: Current everyday Tobacco user Tobacco use type: Cigarette e-Cigarette/Vaping Use: Never Used service: No Review of Systems Const Denies chills, Denies fatigue, Denies fever(s), Denies frequent falls, Denies weakness, Denies weight gain and Denies weight loss ENT Denies dizziness Card Denies chest pain, Denies leg edema, Denies lightheadedness, Denies palpitations, Denies dyspnea, Denies dyspnea on exertion, Denies orthopnea and Denies other (loss of consciousness) Resp Denies cough, Denies dyspnea and Denies dyspnea on exertion GI Denies hematochezia and Denies change in stool character Musc Denies abnormal gait, Denies muscle weakness, Denies numbness, Denies radiating pain into limb and Denies tingling Neuro Denies abnormal gait, Denies dizziness, Denies frequent falls, Denies numbness, Denies tingling and Denies weakness Endo Denies fatigue and Denies palpitations Physical Exam Vital Signs: BMI result Body Mass Index 17.4 Const General: cooperative, comfortable, alert and awake Nutritional Appearance: thin Orientation/consciousness: patient oriented x3 Limitations: no limitations Neck Neck: Yes trachea midline, Yes supple and Yes no JVD Resp Effort & Inspection: normal respiratory effort Auscultation: clear to auscultation bilaterally Cardio Jugular venous distension: no JVD Palpation: normal PMI Rate: regular rate Rhythm: regular rhythm Heart sounds: S1 normal heart sound present and S2 normal heart sound present GI Auscultation: normal bowel sounds Skin General skin exam: ecchymosis Neuro General: patient oriented x3 and no focal motor deficits Extrem General: Yes no clubbing, cyanosis or edema Psych Appearance: grossly normal Office Procedures Cardiac Device Check Cardiac Device Check Details: Single-chamber [facility] ICD in place. Programmed in VVI at 40 beats per minute. Battery life is 3.6 months. Ventricular pacing thresholds were stable. Ventricular sensing is excellent. Pacing and shock lead impedance is stable. No arrhythmias detected. [id number] Cardiac Device Check, single lead implantable defibrillator Procedure code (CPT) selection complete EKG Details: EKG shows normal sinus rhythm with normal EKG with normal axis and normal intervals [id number], Complete Assessment & Plan Assessment & Plan (1) Paroxysmal atrial fibrillation: Code(s): I48.0 - Paroxysmal atrial fibrillation Plan: Highly symptomatic paroxysmal atrial flutter status post cardioversion recently. He is doing well since then. Tolerating sotalol therapy. Needs EKGs every 6 months. Needs renal function every 6 months. Continue current therapy. Avoidance of stimulants was discussed advised to call me with new symptoms. Continue full oral anticoagulation, currently on Eliquis 5 mg b.i.d..CHADSVASc score of 3. He understands management well. (2) Cardiomyopathy: Code(s): I42.9 - Cardiomyopathy, unspecified Plan: Cardiomyopathy with mild LV systolic dysfunction. No signs or symptoms of heart failure unless when he was in rapid atrial flutter. Currently clinically doing well. Tolerating low-dose valsartan. Currently on low-dose Lasix therapy. If remains with heart failure in future can probably make it p.r.n.. Continue sotalol and valsartan for neurohormonal modulation. Avoidance of cardiotoxic agent was discussed. (3) ICD (implantable cardioverter-defibrillator) in place: Code(s): Z95.810 - Presence of automatic (implantable) cardiac defibrillator Plan: ICD in place, working well. Reprogrammed for adequate function. Battery life is low. Will follow-up monthly remotely and follow up in the clinic in 3 months time. Follow up in the clinic in 3 months time, sooner p.r.n.. Thank you for allowing me to partake in his care Medications: Changed From valsartan 40 mg PO BID 60 tabs 1RF To valsartan 20 mg (1/2 x 40 mg) PO BID 60 tabs 1RF Discontinued losartan 50 mg PO QAM 30 tabs 3RF Coding Level of Care Code Est Pt Level 4 (49324) Diagnoses Paroxysmal atrial fibrillation I48.0 Cardiomyopathy I42.9 ICD (implantable cardioverter-defibrillator) in place Z95.810 CPT Codes Cardiac Device Check - Cardiac Device 4: 88028-LE Cardiac Device Check, single lead implantable defibrillator ([id number]) EKG - CPT: 41895-[id number], Complete ([id number])
== END 2022-11-29 08:56 | disposition home or self-care (01) ==
PROVIDERS: PCP Family Medicine; Referring Provider Family Medicine; Visit Provider Internal Medicine Cardiovascular Disease
DX: I48.0 Paroxysmal atrial fibrillation (principal); I42.9 Cardiomyopathy, unspecified; Z95.810 Presence of automatic (implantable) cardiac defibrillator
CPT/HCPCS: 93282; 99214

== ENCOUNTER → 2022-11-29 08:17 | Outpatient (BNVA) | payer MEDICARE, MEDICAID, SELFPAY | PROVIDERS: PCP Family Medicine; Referring Provider Family Medicine; Visit Provider Internal Medicine Cardiovascular Disease | DX: I48.0 Paroxysmal atrial fibrillation (principal); I42.9 Cardiomyopathy, unspecified; Z95.810 Presence of automatic (implantable) cardiac defibrillator | CPT/HCPCS: 93005; 99212 ==

== ENCOUNTER → 2022-12-18 23:59 | Outpatient (BNV) | payer MEDICARE, MEDICAID, SELFPAY ==
--- NOTE | 2022-12-18 15:46 | MHC.OFFVIS ---
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 Mother No problems noted. Sister CAD (coronary artery disease) Social History Household Members: None Housing: House Do you presently have visiting nurse or other home services: No Alcohol intake: never Patient Tobacco Use Status: Current everyday Tobacco user Tobacco use type: Cigarette e-Cigarette/Vaping Use: Never Used service: No Office Procedures Cardiac Device Check Cardiac Device Check Details: Remote heart failure report generated 12/18/2022. Heart failure parameters are stable [id number] Cardiac Device Interrogation, cardio physiologic monitor Procedure code (CPT) selection complete Assessment & Plan Assessment & Plan Medications: Discontinued losartan 50 mg PO QAM 30 tabs 3RF Coding Level of Care Code Procedure Only Diagnoses CPT Codes Cardiac Device Check - Cardiac Device 15: [id number] Cardiac Device Interrogation, cardio physiologic monitor ([id number])
== END ==
PROVIDERS: PCP Family Medicine; Visit Provider Internal Medicine Cardiovascular Disease
DX: I42.9 Cardiomyopathy, unspecified (principal); Z95.810 Presence of automatic (implantable) cardiac defibrillator
CPT/HCPCS: 93297

== ENCOUNTER 2022-12-20 07:54 | Outpatient (REF) | payer MEDICARE, MEDICAID, SELFPAY ==
--- NOTE | ~2022-12-20 | CT_ITS ---
EXAMINATION: CT CHEST WITHOUT CONTRAST CLINICAL INFORMATION: Lung nodule COMPARISON: 11/20/2021 and 09/18/2018 TECHNIQUE: Multidetector volumetric CT imaging of the chest was done. Axial MIP volume rendering provided. Sagittal and coronal reformatted images were obtained. This CT examination was performed using dose optimization techniques as appropriate, variously including the following: *Automated exposure control *Adjustment of mA and/or kV according to patient size (this includes techniques or standardized protocols for targeted exams where dose is matched to indication/reason for exam; i.e. 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 Hyperinflated but clear lungs LUNGS: Trachea and bronchi are patent. Lungs are hyper aerated mild centrilobular emphysema area scattered atelectasis. No change 3 mm linear medial right upper lobe density, 4:17. MEDIASTINUM: Unremarkable thyroid. No pathologic lymphadenopathy. Nonenlarged heart. No pericardial effusion. Indwelling pacer/AICD. Nonaneurysmal aorta with mild atherosclerotic calcifications. Nonenlarged pulmonary arteries. CORONARY ARTERY CALCIFICATION: Mild. PLEURA: There is no pleural effusion. No pleural mass or thickening. AXILLA: No lymphadenopathy. UPPER ABDOMEN: Unremarkable. OSSEOUS STRUCTURES: Minor scoliosis. No suspicious osseous lesions. CT/CT chest wo IV con IMPRESSION: Stable 3 mm right upper lobe linear density since 2019.
== END 2022-12-20 07:55 | disposition home or self-care (01) ==
LOC: HO.CT 07:54
PROVIDERS: PCP Family Medicine; Visit Provider Family Medicine
DX: R91.1 Solitary pulmonary nodule (principal)
CPT/HCPCS: 71250

== ENCOUNTER 2023-01-07 07:49 | Outpatient (REF) | payer MEDICARE, MEDICAID, SELFPAY ==
[2023-01-07 08:39] LABS: Anion Gap 14 (12-20); Blood Urea Nitrogen 32 mg/dL (9-16); Calcium 9.7 mg/dL (8.4-10.2); Carbon Dioxide 29 mmol/L (22-29); Chloride 103 mmol/L (96-108); Estimated Glomerular Filt Rate > 60; Potassium 4.8 mmol/L (3.3-5.1); Sodium 141 mmol/L (135-145)
[2023-01-07 11:42] LABS: Creatinine Urine 126.06 mg/dL; Protein/Creatinine Ratio, Ur 0.36 (<0.2); Total Protein Urine Random 46 mg/dL (<12)
== END 2023-01-07 07:50 | disposition home or self-care (01) ==
LOC: HO.LAB 07:49
PROVIDERS: PCP Family Medicine; Visit Provider Internal Medicine Nephrology
DX: E11.21 Type 2 diabetes mellitus with diabetic nephropathy (principal); I10 Essential (primary) hypertension
CPT/HCPCS: 36415; 80051; 82310; 82565; 82570; 84156; 84520

== ENCOUNTER → 2023-01-21 23:59 | Outpatient (BNV) | payer MEDICARE, MEDICAID, SELFPAY ==
--- NOTE | 2023-01-21 15:35 | MHC.OFFVIS ---
Intake Intake Visit Reasons: Remote HF monitoring= [facility] Allergies No Known Allergies Allergy (Verified 08/21/22 09:10) [facility] Medical History (Updated 01/18/23 @ 08:03 by DAYO Martins) Paroxysmal atrial flutter Atrial flutter with rapid ventricular response Vitamin D deficiency HLD (hyperlipidemia) HTN (hypertension) T2DM (type 2 diabetes mellitus) Hyperlipidemia DG (obstructive sleep apnea) Diabetes mellitus Intracardiac thrombus Paroxysmal atrial fibrillation History of congestive heart failure History of cardiomyopathy ICD (implantable cardioverter-defibrillator) in place Surgical History History of eye surgery Hx of rotator cuff surgery History of permanent cardiac pacemaker placement Family History Father No problems noted. Mother No problems noted. Sister CAD (coronary artery disease) Social History Household Members: None Housing: House Do you presently have visiting nurse or other home services: No Alcohol intake: never Patient Tobacco Use Status: Current everyday Tobacco user Tobacco use type: Cigarette e-Cigarette/Vaping Use: Never Used service: No Office Procedures Cardiac Device Check Cardiac Device Check Details: Remote heart failure report generated 01/21/2023. Heart failure parameters are stable [id number] Cardiac Device Interrogation, cardio physiologic monitor Procedure code (CPT) selection complete Coding Level of Care Code Procedure Only CPT Codes Cardiac Device Check - Cardiac Device 15: 50399-[id number] Cardiac Device Interrogation, cardio physiologic monitor ([id number])
== END ==
PROVIDERS: PCP Family Medicine; Visit Provider Internal Medicine Cardiovascular Disease
DX: I42.9 Cardiomyopathy, unspecified (principal); Z95.810 Presence of automatic (implantable) cardiac defibrillator
CPT/HCPCS: 93297

== ENCOUNTER 2023-02-22 09:03 | Outpatient (REF) | payer MEDICARE, MEDICAID, SELFPAY ==
[2023-02-22 09:21] LABS: MANUAL DIFF FLAG NO
[2023-02-22 09:58] LABS: Basophils Absolute Auto 0.1 X10*3/uL (0.0-0.2); Basophils Percent Auto 1.2 % (0-2); Eosinophils Absolute Auto 0.5 X10*3/uL (0.0-0.4); Eosinophils Percent Auto 6.7 % (0-4); Hematocrit 52.7 % (42.0-52.0); Hemoglobin 17.1 g/dl (14.0-18.0); Imm Gran Abs Auto 0.01 X10*3/uL (0.00-0.03); Imm Gran Pct Auto 0.1 % (0.0-0.4); Lymphocytes Percent Auto 29.8 % (20-40); Mean Corpuscular HGB Conc 32.4 g/dl (31.0-36.0); Mean Corpuscular Hemoglobin 32.2 pg (27.0-33.0); Mean Corpuscular Volume 99.2 fL (80.0-98.0); Mean Platelet Volume 11.4 fL (9.4-12.4); Monocytes Absolute Auto 0.9 X10*3/uL (0.1-1.2); Monocytes Percent Auto 12.6 % (2-11); Neutrophils Absolute Auto 3.3 x10*3/uL (2.0-8.3); Neutrophils Percent Auto 49.6 % (45-73); Platelet Count 121 X10*3/uL (160-400); Red Blood Count 5.31 X10*6/uL (4.60-5.80); Red Cell Distribution Width 13.5 % (11.0-16.0); White Blood Count 6.7 X10*3/uL (4.8-10.8)
[2023-02-22 10:47] LABS: Anion Gap 14 (12-20); Blood Urea Nitrogen 22 mg/dL (9-16); Calcium 10.3 mg/dL (8.4-10.2); Carbon Dioxide 30 mmol/L (22-29); Chloride 103 mmol/L (96-108); Estimated Glomerular Filt Rate > 60; Glucose Random 127 mg/dL (60-115); Potassium 4.7 mmol/L (3.3-5.1); Sodium 142 mmol/L (135-145)
== END 2023-02-22 09:04 | disposition home or self-care (01) ==
LOC: HO.LAB 09:03
PROVIDERS: PCP Family Medicine; Visit Provider Internal Medicine Cardiovascular Disease
DX: Z45.02 Encounter for adjustment and management of automatic implantable cardiac defibrillator (principal)
CPT/HCPCS: 36415; 80048; 85025

== ENCOUNTER 2023-02-27 11:02 | Day surgery (SDC) | payer MEDICARE, MEDICAID, SELFPAY ==
--- NOTE | 2023-02-26 10:24 | HO.ANESPROP2 ---
Documented by User: Anita Gurrola NP 02/26/23 10:37 HPI - Anesthesia Eval Consult details Narrative: 68yo M for ICD Generator Change (implantable cardioverter defibrillator) Eliquis for afib/flutter - LD Saturday ICD for CMP Previously on ozempic, but has not taken since ~ last year per daughter [facility] Active Problems Active Problems: All Active Problems (Updated 01/18/23 @ 08:03 by Leisa Lee, RUT-C) Implantable cardioverter-defibrillator (ICD) at end of battery life (Acute) Cardiomyopathy (Acute) Vitamin D deficiency (Acute) HLD (hyperlipidemia) (Acute) HTN (hypertension) (Acute) T2DM (type 2 diabetes mellitus) (Acute) ICD (implantable cardioverter-defibrillator) in place (Acute) Paroxysmal atrial fibrillation (Acute) Intracardiac thrombus (Acute) History of congestive heart failure (Acute) Hyperlipidemia (Acute) DG (obstructive sleep apnea) (Acute) Diabetes mellitus (Acute) Past Medical History Medical History (Updated 01/18/23 @ 08:03 by Leisa Lee, RUT-C) Paroxysmal atrial flutter Atrial flutter with rapid ventricular response Vitamin D deficiency HLD (hyperlipidemia) HTN (hypertension) T2DM (type 2 diabetes mellitus) Hyperlipidemia DG (obstructive sleep apnea) Diabetes mellitus Intracardiac thrombus Paroxysmal atrial fibrillation History of congestive heart failure History of cardiomyopathy ICD (implantable cardioverter-defibrillator) in place Family History Family History Father No problems noted. Mother No problems noted. Sister CAD (coronary artery disease) Surgical History Surgical History History of eye surgery Hx of rotator cuff surgery History of permanent cardiac pacemaker placement Social History Social History Household Members: None Housing: House Do you presently have visiting nurse or other home services: No Alcohol intake: never Patient Tobacco Use Status: Current everyday Tobacco user Tobacco use type: Cigarette Cigarettes Per Day: 3 e-Cigarette/Vaping Use: Never Used service: No Meds Allergies Allergy/AdvReac Type Severity Reaction Status Date / Time No Known Allergies Allergy Verified 08/21/22 09:10 Home Medications Medication Instructions Recorded Confirmed Last Taken Type lancets 28 gauge (FreeStyle #100 ea 04/18/20 11/29/22 Unknown History Lancets) metformin 1,000 mg tablet 1,000 mg PO BID 04/18/20 11/29/22 11/05/22 History pen needle, diabetic 31 gauge x #1,200 ea 04/18/20 11/29/22 Unknown History 09/11 insulin glargine 100 unit/mL (3 20 unit subcut DAILY 07/04/20 11/29/22 11/05/22 History mL) subcutaneous pen amitriptyline 10 mg tablet 10 mg PO BEDTIME 10/05/20 11/29/22 11/04/22 History atorvastatin 10 mg tablet 10 mg PO BEDTIME 10/05/20 11/29/22 11/04/22 History blood sugar diagnostic (FreeStyle #10 ea 10/05/20 11/29/22 Unknown History Test strips) gabapentin 300 mg capsule 300 mg PO TID 10/05/20 11/29/22 11/05/22 History multivitamin 1 tab PO DAILY 01/09/21 11/29/22 11/05/22 History Exam Exam Date and Time: February 26, 2023 1024 Narrative Narrative: ECHO 10/2022 Conclusions: - 1. Mildly reduced LVEF of 45-50% with impaired relaxation filling pattern 2. Normal cardiac valvular Doppler 3. No pericardial effusion Cardiac Device Check 11/2022 Details: Single-chamber [facility] ICD in place. Programmed in VVI at 40 beats per minute. Battery life is 3.6 months. Ventricular pacing thresholds were stable. Ventricular sensing is excellent. Pacing and shock lead impedance is stable. No arrhythmias detected. 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 Mother No problems noted. Sister CAD (coronary artery disease) Surgical History Surgical History History of eye surgery Hx of rotator cuff surgery History of permanent cardiac pacemaker placement History of Problems with Anesthesia: No Social History Social History Household Members: None Housing: House Do you presently have visiting nurse or other home services: No Alcohol intake: never Patient Tobacco Use Status: Current everyday Tobacco user Tobacco use type: Cigarette Cigarettes Per Day: 3 e-Cigarette/Vaping Use: Never Used service: No Meds Allergies Allergy/AdvReac Type Severity Reaction Status Date / Time No Known Allergies Allergy Verified 08/21/22 09:10 Home Medications Medication Instructions Recorded Confirmed Last Taken Type lancets 28 gauge (FreeStyle #100 ea 04/18/20 11/29/22 Unknown History Lancets) metformin 1,000 mg tablet 1,000 mg PO BID 04/18/20 11/29/22 11/05/22 History pen needle, diabetic 31 gauge x #1,200 ea 04/18/20 11/29/22 Unknown History 16 insulin glargine 100 unit/mL (3 20 unit subcut DAILY 07/04/20 11/29/22 11/05/22 History mL) subcutaneous pen amitriptyline 10 mg tablet 10 mg PO BEDTIME 10/05/20 11/29/22 11/04/22 History atorvastatin 10 mg tablet 10 mg PO BEDTIME 10/05/20 11/29/22 11/04/22 History blood sugar diagnostic (FreeStyle #10 ea 10/05/20 11/29/22 Unknown History Test strips) gabapentin 300 mg capsule 300 mg PO TID 10/05/20 11/29/22 11/05/22 History multivitamin 1 tab PO DAILY 01/09/21 11/29/22 11/05/22 History Exam Airway Mallampati Class: II TM Dist: >3cm Neck ROM: Limited Loose/Missing/Broken Teeth: Yes, Upper and Lower Heart: RRR Lungs: CTA Assessment and Plan Assessment Anesthesia Assessment: Anesthesia Plan Discussed Final Anesthetic Review History of Problems with Anesthesia: No NPO: Yes ASA Class: III Final Preanesthetic Review: Meds/Allgs Chart Reviewed, Consent Obtained/Reviewed and Anes Risks/Benef Reviewed Patient Risk: Intermediate Procedure Risk: Low Anesthetic Plan Anesthetic Plan: MAC: Disposition: Standard PACU
[2023-02-27 11:52] VITALS: BP 130/66; PULSE 60; RESP 18; TEMP 36.5; O2SAT 97; BMI 16.7
[2023-02-27 12:26] LABS: Glucose, Whole Blood 102 mg/dL (60-115)
--- NOTE | 2023-02-27 12:59 | W.PM.OPN ---
Operative Note Operative Note Date of Service: 02/27/23
--- NOTE | 2023-02-27 13:07 | W.PM.OPN ---
Operative Note Operative Note Date of Service: 02/27/23 Narrative: ICD generator change out Indication: Device at [facility] Procedure: Patient was prepped and draped in sterile fashion. 2% lidocaine Local anaesthesia was given. Incision was made. Care was taken to cauterize the bleeders. Old ICD can was taken and lead was disconnected. Lead was connected to new can and a new can was placed in the pocket. Lead parameters were within normal limits. Wound was closed with 3 layers of sutures. Exofin was placed on top. Wound was covered with tegaderm. Patient tolerated the procedure well Complications None Successful ICD generator change
[2023-02-27 13:53] VITALS: BP 98/57; PULSE 78; RESP 16; TEMP 36.4; O2SAT 97
[2023-02-27 14:13] VITALS: BP 109/70; PULSE 67; RESP 17; TEMP 36.7; O2SAT 95
== END 2023-02-27 14:50 | disposition home or self-care (01) ==
PROVIDERS: PCP Family Medicine; Visit Provider Internal Medicine Cardiovascular Disease
PROC: 0JPT0PZ Removal of Cardiac Rhythm Related Device from Trunk Subcutaneous Tissue and Fascia, Open Approach (ICD-10-PCS; CPT 33262; principal; 2023-02-27 13:00)
DX: Z45.02 Encounter for adjustment and management of automatic implantable cardiac defibrillator (principal); I42.9 Cardiomyopathy, unspecified; E11.9 Type 2 diabetes mellitus without complications; I11.0 Hypertensive heart disease with heart failure; I50.22 Chronic systolic (congestive) heart failure; I51.3 Intracardiac thrombosis, not elsewhere classified; I48.0 Paroxysmal atrial fibrillation; E55.9 Vitamin D deficiency, unspecified; E78.5 Hyperlipidemia, unspecified; G47.33 Obstructive sleep apnea (adult) (pediatric); F17.210 Nicotine dependence, cigarettes, uncomplicated; Z79.01 Long term (current) use of anticoagulants; Z79.4 Long term (current) use of insulin; Z79.899 Other long term (current) drug therapy
CPT/HCPCS: 33262; 82947; C1722; J2250; J3010; J3370

== ENCOUNTER → 2023-02-27 23:59 | Outpatient (BNV) | payer MEDICARE, MEDICAID, SELFPAY ==
--- NOTE | 2023-02-28 15:53 | MHC.OFFVIS ---
Intake Intake Visit Reasons: Remote ICD Check- [facility] Allergies No Known Allergies Allergy (Verified 08/21/22 09:10) [facility] Medical History Paroxysmal atrial flutter Atrial flutter with rapid ventricular response Vitamin D deficiency HLD (hyperlipidemia) HTN (hypertension) T2DM (type 2 diabetes mellitus) Hyperlipidemia DG (obstructive sleep apnea) Diabetes mellitus Intracardiac thrombus Paroxysmal atrial fibrillation History of congestive heart failure History of cardiomyopathy ICD (implantable cardioverter-defibrillator) in place Surgical History History of eye surgery Hx of rotator cuff surgery History of permanent cardiac pacemaker placement Family History Father No problems noted. Mother No problems noted. Sister CAD (coronary artery disease) Social History Household Members: None Housing: House Do you presently have visiting nurse or other home services: No Alcohol intake: never Patient Tobacco Use Status: Current everyday Tobacco user Tobacco use type: Cigarette Cigarettes Per Day: 3 e-Cigarette/Vaping Use: Never Used Have you been hit, kicked, punched, or otherwise hurt by someone within the past year? If so, by whom?: No Advance Directives: No Advance Directives Information Provided: Yes Recently lost weight without trying: No Eating poorly because of decreased appetite: No Nutrition Risks: No Nutritional Risk Poor oral hygiene: Yes service: No Office Procedures Cardiac Device Check Cardiac Device Check Details: Remote ICD report generated 02/27/2023. ICD battery life is at NICKI. Plan for pulse generator change in near future [id number] Cardiac Interrogation, implant defibrillator w/interim Procedure code (CPT) selection complete Coding Level of Care Code Procedure Only CPT Codes Cardiac Device Check - Cardiac Device 13: 20234-[id number] Cardiac Interrogation, implant defibrillator w/interim ([id number])
== END ==
PROVIDERS: PCP Family Medicine; Visit Provider Internal Medicine Cardiovascular Disease
DX: I42.9 Cardiomyopathy, unspecified (principal); Z95.810 Presence of automatic (implantable) cardiac defibrillator
CPT/HCPCS: 93295

== ENCOUNTER → 2023-03-04 23:59 | Outpatient (BNV) | payer MEDICARE, MEDICAID, SELFPAY ==
--- NOTE | 2023-03-04 12:33 | A.OFFVIS_ITS ---
Intake Intake Visit Reasons: Remote HF Monitoring- [facility] Allergies No Known Allergies Allergy (Verified 08/21/22 09:10) [facility] Medical History Paroxysmal atrial flutter Atrial flutter with rapid ventricular response Vitamin D deficiency HLD (hyperlipidemia) HTN (hypertension) T2DM (type 2 diabetes mellitus) Hyperlipidemia DG (obstructive sleep apnea) Diabetes mellitus Intracardiac thrombus Paroxysmal atrial fibrillation History of congestive heart failure History of cardiomyopathy ICD (implantable cardioverter-defibrillator) in place Surgical History History of eye surgery Hx of rotator cuff surgery History of permanent cardiac pacemaker placement Family History Father No problems noted. Mother No problems noted. Sister CAD (coronary artery disease) Social History Household Members: None Housing: House Do you presently have visiting nurse or other home services: No Alcohol intake: never Patient Tobacco Use Status: Current everyday Tobacco user Tobacco use type: Cigarette Cigarettes Per Day: 3 e-Cigarette/Vaping Use: Never Used Have you been hit, kicked, punched, or otherwise hurt by someone within the past year? If so, by whom?: No Advance Directives: No Advance Directives Information Provided: Yes Recently lost weight without trying: No Eating poorly because of decreased appetite: No Nutrition Risks: No Nutritional Risk Poor oral hygiene: Yes service: No Office Procedures Cardiac Device Check Cardiac Device Check Details: Remote heart failure report generated 03/04/2023. Heart failure parameters are stable [id number] Cardiac Device Interrogation, cardio physiologic monitor Procedure code (CPT) selection complete Coding Level of Care Code Procedure Only CPT Codes Cardiac Device Check - Cardiac Device 15: 57857-Wrahkf Cardiac Device Interrogation, cardio physiologic monitor ([id number])
== END ==
PROVIDERS: PCP Family Medicine; Visit Provider Internal Medicine Cardiovascular Disease
DX: I42.9 Cardiomyopathy, unspecified (principal); Z95.810 Presence of automatic (implantable) cardiac defibrillator
CPT/HCPCS: 93297

== ENCOUNTER 2023-03-18 08:41 | Outpatient (AMB) | payer MEDICARE, MEDICAID, SELFPAY ==
[2023-03-18 08:56] VITALS: BP 108/60; PULSE 72; BMI 17.0
--- NOTE | 2023-03-18 08:56 | MHC.OFFVIS ---
Intake Vital Signs 03/18/23 08:56 Height 6 ft Weight 125 lb 10.616 oz BMI 17.0 BP 108/60 Blood Pressure Location Lt brachial Position Sitting Pulse 72 Intake Visit Reasons: 3 mth f/up w/ ekg/ pacer ck Intake Note: 3 month follow-up post [facility] change feeling good Marble Mechanic Helper Required: Yes Marble Mechanic Helper Name: Jose rodriguez Medication Reconciliation Technician: Medication Reconciliation Technician Present Accompanied by: Daughter Allergies No Known Allergies Allergy (Verified 08/21/22 09:10) Medication List - Last Reconciled 03/18/23 by Gabriel Cassidy MD amitriptyline 10 mg PO BEDTIME apixaban (Eliquis) 5 mg PO BID atorvastatin 10 mg PO BEDTIME blood sugar diagnostic (FreeStyle Test strips) As directed two times a day empagliflozin (Jardiance) 25 mg PO DAILY 30 days furosemide 20 mg See Protocol PO DAILY gabapentin 300 mg PO TID insulin glargine 20 units subcut DAILY lancets (FreeStyle Lancets) As directed metformin 1,000 mg PO BID multivitamin 1 tab PO DAILY pen needle, diabetic As directed sotalol 80 mg PO BID@0800,2000 valsartan 20 mg (1/2 x 40 mg) PO BID HPI HPI Comments History of Present Illness Details Shaka comes for follow-up. Patient underwent ICD pulse generator change couple weeks ago. No fever or chills. No wound day since or discharge. Patient denies any palpitations. Denies any exertional symptoms of shortness of breath chest discomfort. No lightheadedness, syncope. No prolonged palpitations irregular heartbeat, ICD discharge. No orthopnea, PND, leg edema. Takes all his medications regularly. [facility] Medical History (Updated 03/18/23 @ 09:27 by Gabriel Cassidy MD) Implantable cardioverter-defibrillator (ICD) at end of battery life Paroxysmal atrial flutter Atrial flutter with rapid ventricular response Vitamin D deficiency HLD (hyperlipidemia) HTN (hypertension) T2DM (type 2 diabetes mellitus) Hyperlipidemia DG (obstructive sleep apnea) Diabetes mellitus Intracardiac thrombus Paroxysmal atrial fibrillation History of congestive heart failure History of cardiomyopathy ICD (implantable cardioverter-defibrillator) in place Surgical History History of eye surgery Hx of rotator cuff surgery History of permanent cardiac pacemaker placement Family History Father No problems noted. Mother No problems noted. Sister CAD (coronary artery disease) Social History Household Members: None Housing: House Do you presently have visiting nurse or other home services: No Alcohol intake: never Patient Tobacco Use Status: Current everyday Tobacco user Tobacco use type: Cigarette Cigarettes Per Day: 3 e-Cigarette/Vaping Use: Never Used service: No Review of Systems Const Denies chills, Denies fatigue, Denies fever(s), Denies frequent falls, Denies weakness, Denies weight gain and Denies weight loss ENT Denies dizziness Card Denies chest pain, Denies leg edema, Denies lightheadedness, Denies palpitations, Denies dyspnea, Denies dyspnea on exertion, Denies orthopnea and Denies other (loss of consciousness) Resp Denies cough, Denies dyspnea and Denies dyspnea on exertion GI Denies hematochezia and Denies change in stool character Musc Denies abnormal gait, Denies muscle weakness, Denies numbness, Denies radiating pain into limb and Denies tingling Neuro Denies abnormal gait, Denies dizziness, Denies frequent falls, Denies numbness, Denies tingling and Denies weakness Endo Denies fatigue and Denies palpitations Physical Exam Vital Signs: Last Vital Signs Pulse 72 03/18/23 08:56 BP 108/60 03/18/23 08:56 BMI result Body Mass Index 17.0 Const General: cooperative, comfortable, alert and awake Nutritional Appearance: thin Orientation/consciousness: patient oriented x3 Limitations: no limitations Neck Neck: Yes trachea midline, Yes supple and Yes no JVD Resp Effort & Inspection: normal respiratory effort Auscultation: clear to auscultation bilaterally Cardio Jugular venous distension: no JVD Palpation: normal PMI Rate: regular rate Rhythm: regular rhythm Heart sounds: S1 normal heart sound present and S2 normal heart sound present GI Auscultation: normal bowel sounds Skin General skin exam: ecchymosis Neuro General: patient oriented x3 and no focal motor deficits Extrem General: Yes no clubbing, cyanosis or edema Psych Appearance: grossly normal Office Procedures Cardiac Device Check Cardiac Device Check Details: Single-chamber [facility] ICD in place. Programmed in VVI at 40 beats per minute. No rapid heart rate episodes noted. Ventricular pacing thresholds are excellent and reprogrammed to enhance battery life. Ventricular sensing is excellent. Pacing and shock lead impedance is stable. Battery life is excellent at 10 years [id number] Cardiac Device Check, single lead implantable defibrillator Procedure code (CPT) selection complete EKG Details: EKG shows normal sinus rhythm with frequent PVCs, multifocal with normal QT interval [id number], Complete Assessment & Plan Assessment & Plan (1) Cardiomyopathy: Code(s): I42.9 - Cardiomyopathy, unspecified Plan: Patient with mild cardiomyopathy with NYHA class 1 symptoms with no signs or symptoms of heart failure. Currently on Lasix 20 mg daily. Continue the same. Continue neurohormonal modulation with Jardiance, valsartan as well as sotalol. Cannot maximize neurohormonal modulation due to low blood pressure. Daily weight monitoring avoidance of salt loading was discussed continue maintain activity level as tolerated. (2) Paroxysmal atrial fibrillation: Code(s): I48.0 - Paroxysmal atrial fibrillation Plan: Paroxysmal atrial fibrillation which has remained suppressed on sotalol therapy. He has done very well with sotalol therapy. Continue the same. Continue pursue rhythm control approach which has helped him significantly to avoid hospitalization. Continue full oral anticoagulation, currently on Eliquis 5 mg b.i.d.. Semi annual renal function test should be pursued. (3) ICD (implantable cardioverter-defibrillator) in place: Code(s): Z95.810 - Presence of automatic (implantable) cardiac defibrillator Plan: ICD in place for primary prevention. Device is working well. Will follow remotely for heart failure as well as device check. Follow up in the clinic in 6 months time. Follow up in the clinic in 6 months time, sooner p.r.n.. Thank you for allowing me to partake in his care Coding Level of Care Code Est Pt Level 4 (69179) Diagnoses Cardiomyopathy I42.9 Paroxysmal atrial fibrillation I48.0 ICD (implantable cardioverter-defibrillator) in place Z95.810 CPT Codes Cardiac Device Check - Cardiac Device 4: 05122-TR Cardiac Device Check, single lead implantable defibrillator ([id number]) EKG - CPT: 38792-Isyymdbempkmvnnrc, Complete ([id number])
== END 2023-03-18 09:27 | disposition home or self-care (01) ==
PROVIDERS: PCP Family Medicine; Visit Provider Internal Medicine Cardiovascular Disease
DX: I42.9 Cardiomyopathy, unspecified (principal); I48.0 Paroxysmal atrial fibrillation; Z95.810 Presence of automatic (implantable) cardiac defibrillator
CPT/HCPCS: 93282; 99214

== ENCOUNTER → 2023-03-18 08:41 | Outpatient (BNVA) | payer MEDICARE, MEDICAID, SELFPAY | PROVIDERS: PCP Family Medicine; Visit Provider Internal Medicine Cardiovascular Disease | DX: I42.9 Cardiomyopathy, unspecified (principal); I48.0 Paroxysmal atrial fibrillation; I49.3 Ventricular premature depolarization; Z45.02 Encounter for adjustment and management of automatic implantable cardiac defibrillator | CPT/HCPCS: 93005; 99212 ==

== ENCOUNTER → 2023-04-25 23:59 | Outpatient (BNV) | payer MEDICARE, MEDICAID, SELFPAY ==
--- NOTE | 2023-04-30 08:11 | A.OFFVIS_ITS ---
Intake Intake Visit Reasons: Remote HF Monitoring- [facility] Allergies No Known Allergies Allergy (Verified 08/21/22 09:10) [facility] Medical History (Updated 03/18/23 @ 09:27 by Gabriel Cassidy MD) Implantable cardioverter-defibrillator (ICD) at end of battery life Paroxysmal atrial flutter Atrial flutter with rapid ventricular response Vitamin D deficiency HLD (hyperlipidemia) HTN (hypertension) T2DM (type 2 diabetes mellitus) Hyperlipidemia DG (obstructive sleep apnea) Diabetes mellitus Intracardiac thrombus Paroxysmal atrial fibrillation History of congestive heart failure History of cardiomyopathy ICD (implantable cardioverter-defibrillator) in place Surgical History History of eye surgery Hx of rotator cuff surgery History of permanent cardiac pacemaker placement Family History Father No problems noted. Mother No problems noted. Sister CAD (coronary artery disease) Social History Household Members: None Housing: House Do you presently have visiting nurse or other home services: No Alcohol intake: never Comment: n/a Patient Tobacco Use Status: Current everyday Tobacco user Tobacco use type: Cigarette Cigarettes Per Day: 3 e-Cigarette/Vaping Use: Never Used service: No Office Procedures Cardiac Device Check Cardiac Device Check Details: Remote heart failure report generated 04/17/2023. Heart failure parameters are stable [id number] Cardiac Device Interrogation, cardio physiologic monitor Procedure code (CPT) selection complete Assessment & Plan Assessment & Plan (1) ICD (implantable cardioverter-defibrillator) in place: Code(s): Z95.810 - Presence of automatic (implantable) cardiac defibrillator Plan: See above Coding Level of Care Code Procedure Only Diagnoses ICD (implantable cardioverter-defibrillator) in place Z95.810 CPT Codes Cardiac Device Check - Cardiac Device 15: 92246-Dlpuii Cardiac Device Interrogation, cardio physiologic monitor ([id number])
== END ==
PROVIDERS: PCP Family Medicine; Visit Provider Internal Medicine Cardiovascular Disease
DX: I42.9 Cardiomyopathy, unspecified (principal); Z95.810 Presence of automatic (implantable) cardiac defibrillator
CPT/HCPCS: 93297

== ENCOUNTER 2023-05-09 09:10 | Outpatient (AMB) | payer MEDICARE, MEDICAID, SELFPAY ==
--- NOTE | 2023-05-09 09:18 | A.OFFVIS_ITS ---
Intake Vital Signs 05/09/23 09:20 Height 6 ft Weight 125 lb 10.616 oz BMI 17.0 BP 94/56 L Blood Pressure Location Lt brachial Position Sitting Pulse 75 Intake Visit Reasons: Colonoscopy Screening Intake Note: Shaka presents in the office as a colonoscopy screening. CC: occasional constipation but no blood. Allergies No Known Allergies Allergy (Verified 05/09/23 09:20) Medication List - Last Reconciled 05/09/23 by Dania Norman PA-C amitriptyline 10 mg PO BEDTIME apixaban (Eliquis) 5 mg PO BID atorvastatin 10 mg PO BEDTIME blood sugar diagnostic (FreeStyle Test strips) As directed two times a day chlorhexidine gluconate 0.12% PO empagliflozin (Jardiance) 25 mg PO DAILY 30 days furosemide 20 mg See Protocol PO DAILY gabapentin 300 mg PO TID insulin glargine 20 units subcut DAILY lancets (FreeStyle Lancets) As directed metformin 1,000 mg PO BID multivitamin 1 tab PO DAILY pen needle, diabetic As directed sotalol 80 mg PO BID@0800,2000 valsartan 20 mg (1/2 x 40 mg) PO BID HPI HPI Comments History of Present Illness Details RASHIDA present- supportive 68-year-old male referred for screening colonoscopy, history of hypertension, hyperlipidemia, paroxysmal atrial fibrillation with ICD , insulin-dependent type 2 diabetes, DG compliant with CPAP, HFrEF, nonischemic cardiomyopathyhe presents intermittent rare constipation otherwise no GI complaints Eats well- Admitted in October- defib x 10 years- battery change 03/2023- anticoags for mant years- has dcd for procedures- no issues-he is compliant with follow-up. DM- well controlled - lives alone-daughter lives close by very involved with his care He has her general complaints No nausea, vomiting, hematemesis, hematochezia, fever or chills No chest pain ,shortness of breath PFSH Medical History Implantable cardioverter-defibrillator (ICD) at end of battery life Paroxysmal atrial flutter Atrial flutter with rapid ventricular response Vitamin D deficiency HLD (hyperlipidemia) HTN (hypertension) T2DM (type 2 diabetes mellitus) Hyperlipidemia DG (obstructive sleep apnea) Diabetes mellitus Intracardiac thrombus Paroxysmal atrial fibrillation History of congestive heart failure History of cardiomyopathy ICD (implantable cardioverter-defibrillator) in place Surgical History Hx of colonoscopy History of eye surgery Hx of rotator cuff surgery History of permanent cardiac pacemaker placement Family History Father No problems noted. Mother No problems noted. Sister CAD (coronary artery disease) Social History Household Members: None Housing: House Do you presently have visiting nurse or other home services: No Alcohol intake: never Comment: n/a Patient Tobacco Use Status: Current everyday Tobacco user Tobacco use type: Cigarette Cigarettes Per Day: 3 e-Cigarette/Vaping Use: Never Used service: No Review of Systems Const All systems reviewed & are unremarkable except as noted in HPI and below Card Denies chest pain and Denies dyspnea Resp Denies dyspnea GI Denies abdominal pain, Denies change in bowel habits, Denies nausea and Denies vomiting Physical Exam Vital Signs: Last Vital Signs Pulse 75 05/09/23 09:20 BP 94/56 L 05/09/23 09:20 BMI result Body Mass Index 17.0 Const General: cooperative and comfortable Nutritional Appearance: thin and underweight Eyes Sclerae: sclerae normal Assessment & Plan Assessment & Plan (1) Paroxysmal atrial fibrillation: Code(s): I48.0 - Paroxysmal atrial fibrillation (2) ICD (implantable cardioverter-defibrillator) in place: Comment: Reviewed note 04/30/23 Code(s): Z95.810 - Presence of automatic (implantable) cardiac defibrillator Plan: Continue to follow-up as plan (3) Screen for colon cancer: Comment: Discussed colon cancer screening and alternatives to colonoscopy to include Cologuard prefers standard colonoscopy Code(s): Z12.11 - Encounter for screening for malignant neoplasm of colon Plan: Screening colonoscopy MiraLax Gatorade prep (4) DG (obstructive sleep apnea): Code(s): G47.33 - Obstructive sleep apnea (adult) (pediatric) Plan: DEFIBRILLATOR-, CPAP, ANTICOAGS screening colonoscopy- MG prep Anesthesia consult at least 1 wk before procedure Eliquis typically d/c 2 days before procedure Omnit metformin and jardiance eliot before and 1/ 2 dose insulin only NO DM meds morning of procedure- (5) Anticoagulant long-term use: Code(s): Z79.01 - half-way (current) use of anticoagulants Plan: is typically d/c 2 days before procedure- Plan DEFIBRILLATOR-, CPAP, ANTICOAGS screening colonoscopy- MG prep Anesthesia consult at least 1 wk before procedure please Eliquis typically d/c 2 days before procedure Omnit metformin and jardiance eliot before and 1/ 2 dose insulin only NO DM meds morning of procedure- Orders: Orders Colonoscopy - GI Use Only Today Z12.11 - Encounter for screening for malignant neoplasm of colon, Z79.01 - half-way (current) use of anticoagulants, Z95.810 - Presence of automatic (implantable) cardiac defibrillator Medications: New bisacodyl (Dulcolax (bisacodyl)) Day before procedure, prep day Take 4 tablets by mouth upon awakening followed by large glass of water 20 mg (4 x 5 mg) PO ONCE 1 day 4 tabs 0RF colonoscopy prep Z12.11 - Encounter for screening for malignant neoplasm of colon polyethylene glycol 3350 (Miralax) Take as directed by mouth the day before your procedure. 238 grams PO ONCE 1 day 238 grams 0RF laxative effect Patient Instructions: DEFIBRILLATOR-, CPAP, ANTICOAGS screening colonoscopy- MG prep Anesthesia consult at least 1 wk before procedure Eliquis typically d/c 2 days before procedure Omnit metformin and jardiance eliot before and 1/ 2 dose insulin only NO DM meds morning of procedure- Encouraged to call questions or concerns Will be called by nurse navigator prior to procedure Coding Level of Care Code New Pt Level 3 (21286) Diagnoses Paroxysmal atrial fibrillation I48.0 ICD (implantable cardioverter-defibrillator) in place Z95.810 Screen for colon cancer Z12.11 GD (obstructive sleep apnea) G47.33 Anticoagulant long-term use Z79.01 Time Spent (min) 30
[2023-05-09 09:20] VITALS: BP 94/56; PULSE 75; BMI 17.0
== END 2023-05-09 10:46 | disposition home or self-care (01) ==
PROVIDERS: PCP Family Medicine; Visit Provider Physician Assistant
DX: I48.0 Paroxysmal atrial fibrillation (principal); Z95.810 Presence of automatic (implantable) cardiac defibrillator; Z12.11 Encounter for screening for malignant neoplasm of colon; G47.33 Obstructive sleep apnea (adult) (pediatric); Z79.01 Long term (current) use of anticoagulants
CPT/HCPCS: 99203

== ENCOUNTER → 2023-05-09 09:10 | Outpatient (BNVA) | payer MEDICARE, MEDICAID, SELFPAY | PROVIDERS: PCP Family Medicine; Visit Provider Physician Assistant | DX: Z12.11 Encounter for screening for malignant neoplasm of colon (principal); I48.0 Paroxysmal atrial fibrillation; G47.33 Obstructive sleep apnea (adult) (pediatric); Z79.01 Long term (current) use of anticoagulants; Z95.810 Presence of automatic (implantable) cardiac defibrillator | CPT/HCPCS: 99202 ==

== ENCOUNTER → 2023-05-29 23:59 | Outpatient (BNV) | payer MEDICARE, MEDICAID, SELFPAY ==
--- NOTE | 2023-05-29 16:21 | MHC.OFFVIS ---
Intake Intake Visit Reasons: Remote ICD Check- [facility] Allergies No Known Allergies Allergy (Verified 05/09/23 09:20) [facility] Medical History Implantable cardioverter-defibrillator (ICD) at end of battery life Paroxysmal atrial flutter Atrial flutter with rapid ventricular response Vitamin D deficiency HLD (hyperlipidemia) HTN (hypertension) T2DM (type 2 diabetes mellitus) Hyperlipidemia DG (obstructive sleep apnea) Diabetes mellitus Intracardiac thrombus Paroxysmal atrial fibrillation History of congestive heart failure History of cardiomyopathy ICD (implantable cardioverter-defibrillator) in place Surgical History Hx of colonoscopy History of eye surgery Hx of rotator cuff surgery History of permanent cardiac pacemaker placement Family History Father No problems noted. Mother No problems noted. Sister CAD (coronary artery disease) Social History Household Members: None Housing: House Do you presently have visiting nurse or other home services: No Alcohol intake: never Comment: n/a Patient Tobacco Use Status: Current everyday Tobacco user Tobacco use type: Cigarette Cigarettes Per Day: 3 e-Cigarette/Vaping Use: Never Used service: No Office Procedures Cardiac Device Check Cardiac Device Check Details: Remote ICD report generated 05/29/2023. ICD function is adequate. One episode of high ventricular rate consistent with [place]ustained [place] [id number] Cardiac Interrogation, implant defibrillator w/interim Procedure code (CPT) selection complete Assessment & Plan Assessment & Plan (1) ICD (implantable cardioverter-defibrillator) in place: Comment: Reviewed note 04/30/23 Code(s): Z95.810 - Presence of automatic (implantable) cardiac defibrillator Plan: See above Coding Level of Care Code Procedure Only Diagnoses ICD (implantable cardioverter-defibrillator) in place Z95.810 CPT Codes Cardiac Device Check - Cardiac Device 13: [id number] Cardiac Interrogation, implant defibrillator w/interim ([id number])
== END ==
PROVIDERS: PCP Family Medicine; Visit Provider Internal Medicine Cardiovascular Disease
DX: I48.0 Paroxysmal atrial fibrillation (principal); Z95.810 Presence of automatic (implantable) cardiac defibrillator
CPT/HCPCS: 93295

== ENCOUNTER → 2023-07-01 23:59 | Outpatient (BNV) | payer MEDICARE, MEDICAID, SELFPAY ==
--- NOTE | 2023-07-01 16:32 | A.OFFVIS_ITS ---
Intake Intake Visit Reasons: Remote HF Monitoring- [facility] Allergies No Known Allergies Allergy (Verified 05/09/23 09:20) [facility] Medical History Implantable cardioverter-defibrillator (ICD) at end of battery life Paroxysmal atrial flutter Atrial flutter with rapid ventricular response Vitamin D deficiency HLD (hyperlipidemia) HTN (hypertension) T2DM (type 2 diabetes mellitus) Hyperlipidemia DG (obstructive sleep apnea) Diabetes mellitus Intracardiac thrombus Paroxysmal atrial fibrillation History of congestive heart failure History of cardiomyopathy ICD (implantable cardioverter-defibrillator) in place Surgical History Hx of colonoscopy History of eye surgery Hx of rotator cuff surgery History of permanent cardiac pacemaker placement Family History Father No problems noted. Mother No problems noted. Sister CAD (coronary artery disease) Social History Household Members: None Housing: House Do you presently have visiting nurse or other home services: No Alcohol intake: never Comment: n/a Patient Tobacco Use Status: Current everyday Tobacco user Tobacco use type: Cigarette Cigarettes Per Day: 3 e-Cigarette/Vaping Use: Never Used service: No Office Procedures Cardiac Device Check Cardiac Device Check Details: Remote heart failure report generated 07/01/2023. Heart failure parameters are stable [id number] Cardiac Device Interrogation, cardio physiologic monitor Procedure code (CPT) selection complete Assessment & Plan Assessment & Plan (1) ICD (implantable cardioverter-defibrillator) in place: Comment: Reviewed note 04/30/23 Code(s): Z95.810 - Presence of automatic (implantable) cardiac defibrillator Plan: See above Coding Level of Care Code Procedure Only Diagnoses ICD (implantable cardioverter-defibrillator) in place Z95.810 CPT Codes Cardiac Device Check - Cardiac Device 15: [id number] Cardiac Device Interrogation, cardio physiologic monitor ([id number])
== END ==
PROVIDERS: PCP Family Medicine; Visit Provider Internal Medicine Cardiovascular Disease
DX: I42.9 Cardiomyopathy, unspecified (principal); Z95.810 Presence of automatic (implantable) cardiac defibrillator
CPT/HCPCS: 93297

== ENCOUNTER 2023-07-08 09:38 | Outpatient (REF) | payer MEDICARE, MEDICAID, SELFPAY ==
[2023-07-08 12:11] LABS: Estimated Average Glucose 226 mg/dL; Hemoglobin A1c % 9.5 % (<6.0)
[2023-07-08 12:21] LABS: Vitamin B12 505 pg/mL (200-900)
== END 2023-07-08 09:39 | disposition home or self-care (01) ==
LOC: HO.HHCL 09:38
PROVIDERS: Visit Provider Family Medicine
DX: E11.21 Type 2 diabetes mellitus with diabetic nephropathy (principal); Z79.4 Long term (current) use of insulin
CPT/HCPCS: 36415; 82607; 83036

== ENCOUNTER 2023-07-23 07:22 | Outpatient (REF) | payer MEDICARE, MEDICAID, SELFPAY ==
--- NOTE | ~2023-07-23 | CT_ITS ---
EXAMINATION: CT HEAD WITHOUT CONTRAST CLINICAL INFORMATION: New onset visual hallucinations. COMPARISON: CT head 710.3. TECHNIQUE: Contiguous axial imaging was performed from the skull base to vertex without intravenous administration of contrast. This CT examination was performed using dose optimization techniques as appropriate, variously including the following: *Automated exposure control *Adjustment of mA and/or kV according to patient size (this includes techniques or standardized protocols for targeted exams where dose is matched to indication/reason for exam; i.e. extremities or head) *Use of iterative reconstruction technique DLP: 788 mGy-cm FINDINGS: There is no acute intracranial hemorrhage or abnormal extra-axial collection. No intracranial mass effect or midline shift. Lateral and third ventricles are normal. No hydrocephalus. Dixon-white matter differentiation is preserved and there is no evidence of acute territorial infarct. The calvarium and skull base are intact. Mastoid air cells and middle ear cavities are well aerated. No active paranasal sinus disease. Globes and orbits are grossly symmetric. CT/CT head/brain wo IV con IMPRESSION: Unremarkable CT scan of the head. No evidence of acute territorial infarct or hemorrhage.
== END 2023-07-23 07:23 | disposition home or self-care (01) ==
LOC: HO.CT 07:22
PROVIDERS: Visit Provider Family Medicine
DX: R44.1 Visual hallucinations (principal)
CPT/HCPCS: 70450

== ENCOUNTER 2023-08-01 13:54 | Outpatient (REF) | payer MEDICARE, MEDICAID, SELFPAY ==
[2023-08-01 14:20] LABS: MANUAL DIFF FLAG NO
[2023-08-01 15:39] LABS: Basophils Absolute Auto 0.1 X10*3/uL (0.0-0.2); Eosinophils Absolute Auto 0.4 X10*3/uL (0.0-0.4); Eosinophils Percent Auto 5.9 % (0-4); Hemoglobin 16.5 g/dl (14.0-18.0); Imm Gran Abs Auto 0.02 X10*3/uL (0.00-0.03); Imm Gran Pct Auto 0.3 % (0.0-0.4); Lymphocytes Absolute Auto 2.2 X10*3/uL (1.2-4.9); Lymphocytes Percent Auto 31.6 % (20-40); Mean Corpuscular Hemoglobin 33.1 pg (27.0-33.0); Mean Corpuscular Volume 100.4 fL (80.0-98.0); Monocytes Absolute Auto 0.8 X10*3/uL (0.1-1.2); Monocytes Percent Auto 11.4 % (2-11); Neutrophils Absolute Auto 3.5 x10*3/uL (2.0-8.3); Neutrophils Percent Auto 49.8 % (45-73); Platelet Count 106 X10*3/uL (160-400); Red Blood Count 4.98 X10*6/uL (4.60-5.80); Red Cell Distribution Width 13.2 % (11.0-16.0); White Blood Count 7.1 X10*3/uL (4.8-10.8)
[2023-08-01 15:44] LABS: Appearance Urine Clear; Color Urine Yellow; Glucose Urine UA >=1000 mg/dL (Negative); Leukocyte Esterase Urine Negative (Negative); Nitrite Urine Negative (Negative); PH 5.5 (5.0-9.0); Specific Gravity - Urine >= 1.030 (1.005-1.025); UMIC TRIGGER UA YES; Urine Blood Negative (Negative); Urine Ketones Negative (Negative); Urine Protein Trace mg/dL (Neg-Trace)
[2023-08-01 15:47] LABS: Estimated Average Glucose 226 mg/dL; Hemoglobin A1c % 9.5 % (<6.0)
[2023-08-01 15:53] LABS: Bacteria Urine None Seen (None Seen); Hyaline Casts Urine 0-2 /LPF (0-2); RBC Urine 0-2 /HPF (0-2); Squamous Epithelial Cell Urine 0-2 /HPF (0-2); WBC Urine 0-5 /HPF (0-5)
[2023-08-01 15:53] LABS: Creatinine Urine 24.22 mg/dL; Microalbum/Creatinine Ratio Ur 470.6 ug/mg cr (<30); Protein/Creatinine Ratio, Ur 0.66 (<0.2); Total Protein Urine Random 16 mg/dL (<12)
[2023-08-01 16:33] LABS: Parathyroid Hormone Intact 103.3 pg/mL (8.7-77.1)
[2023-08-01 16:39] LABS: Anion Gap 13 (12-20); Blood Urea Nitrogen 23 mg/dL (9-16); Calcium 8.7 mg/dL (8.4-10.2); Carbon Dioxide 30 mmol/L (22-29); Chloride 103 mmol/L (96-108); Estimated Glomerular Filt Rate > 60; Iron 95 mcg/dL (45-160); Magnesium 2.3 mg/dL (1.6-2.6); Percent Iron Saturation 36 % (15-50); Phosphorus 2.2 mg/dL (2.7-4.5); Potassium 4.5 mmol/L (3.3-5.1); Sodium 141 mmol/L (135-145); Total Iron Binding Capacity 262 mcg/dL (228-428); Unsaturated Iron Binding 167 ug/dL; Uric Acid 5.6 mg/dL (3.4-7.0)
[2023-08-01 16:57] LABS: Ferritin 72 ng/mL (20-250); Vitamin D 25-OH Total 33.1 ng/mL (>30)
== END 2023-08-01 13:55 | disposition home or self-care (01) ==
LOC: HO.LAB 13:54
PROVIDERS: PCP Family Medicine; Visit Provider Internal Medicine
DX: E11.21 Type 2 diabetes mellitus with diabetic nephropathy (principal); R80.0 Isolated proteinuria
CPT/HCPCS: 36415; 80051; 81001; 82043; 82306; 82310; 82565; 82570; 82728; 83036; 83540; 83735; 83970; 84100; 84156; 84520; 84550; 85025; 87086

== ENCOUNTER → 2023-08-28 23:59 | Outpatient (BNV) | payer MEDICARE, MEDICAID, SELFPAY ==
--- NOTE | 2023-08-29 12:51 | MHC.OFFVIS ---
Intake Visit Reasons: Remote ICD check- [facility] Allergies No Known Allergies Allergy (Verified 05/09/23 09:20) [facility] Medical History Implantable cardioverter-defibrillator (ICD) at end of battery life Paroxysmal atrial flutter Atrial flutter with rapid ventricular response Vitamin D deficiency HLD (hyperlipidemia) HTN (hypertension) T2DM (type 2 diabetes mellitus) Hyperlipidemia DG (obstructive sleep apnea) Diabetes mellitus Intracardiac thrombus Paroxysmal atrial fibrillation History of congestive heart failure History of cardiomyopathy ICD (implantable cardioverter-defibrillator) in place Surgical History Hx of colonoscopy History of eye surgery Hx of rotator cuff surgery History of permanent cardiac pacemaker placement Family History Father No problems noted. Mother No problems noted. Sister CAD (coronary artery disease) Social History Household Members: None Housing: House Do you presently have visiting nurse or other home services: No Alcohol intake: never Comment: n/a Patient Tobacco Use Status: Current everyday Tobacco user Tobacco use type: Cigarette Cigarettes Per Day: 3 e-Cigarette/Vaping Use: Never Used service: No Office Procedures Cardiac Device Check Cardiac Device Check Details: Remote ICD report generated 08/28/2023. ICD function is adequate. [id number] Cardiac Interrogation, implant defibrillator w/interim Procedure code (CPT) selection complete Assessment & Plan Assessment & Plan (1) ICD (implantable cardioverter-defibrillator) in place: Comment: Reviewed note 04/30/23 Code(s): Z95.810 - Presence of automatic (implantable) cardiac defibrillator Category: Medical Plan: See above Coding Level of Care Code Procedure Only Diagnoses ICD (implantable cardioverter-defibrillator) in place Z95.810 CPT Codes Cardiac Device Check - Cardiac Device 13: [id number] Cardiac Interrogation, implant defibrillator w/interim ([id number])
== END ==
PROVIDERS: PCP Family Medicine; Visit Provider Internal Medicine Cardiovascular Disease
DX: Z45.02 Encounter for adjustment and management of automatic implantable cardiac defibrillator (principal)
CPT/HCPCS: 93295

== ENCOUNTER 2023-09-16 08:48 | Outpatient (AMB) | payer MEDICARE, MEDICAID, SELFPAY ==
--- NOTE | 2023-09-16 08:51 | MHC.OFFVIS ---
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 Supervisor Bakery Sanitation: Supervisor Bakery Sanitation Present Allergies No Known Allergies Allergy (Verified 05/09/23 09:20) Medication List - Last Reconciled 09/16/23 by Gabriel Cassidy MD amitriptyline 10 mg PO BEDTIME apixaban (Eliquis) 5 mg PO BID atorvastatin 10 mg PO BEDTIME bisacodyl (Dulcolax (bisacodyl)) 20 mg (4 x 5 mg) PO ONCE 1 day blood sugar diagnostic (FreeStyle Test strips) As directed two times a day chlorhexidine gluconate 0.12% PO empagliflozin (Jardiance) 25 mg PO QAM furosemide 20 mg See Protocol PO DAILY 90 days gabapentin 300 mg PO TID insulin glargine 20 units subcut DAILY lancets (FreeStyle Lancets) As directed metformin 1,000 mg PO BID multivitamin 1 tab PO DAILY pen needle, diabetic As directed polyethylene glycol 3350 (Miralax) 238 grams PO ONCE 1 day sotalol 80 mg PO BID valsartan 20 mg (1/2 x 40 mg) PO BID HPI Comments Details: Shaka comes for follow-up. He has been doing very well. He comes with his son-in-law who acts as accounting professor and they deny a certified accounting professor. Patient says he has been doing well although does not exercise much. However with activity level he denies any symptoms of shortness of breath. No orthopnea, PND, leg edema. No prolonged palpitations or irregular heartbeat. Denies any ICD discharge. No significant weight gain. Denies any exertional chest pain. No bleeding issues or neurologic events. [facility] Medical History Implantable cardioverter-defibrillator (ICD) at end of battery life Paroxysmal atrial flutter Atrial flutter with rapid ventricular response Vitamin D deficiency HLD (hyperlipidemia) HTN (hypertension) T2DM (type 2 diabetes mellitus) Hyperlipidemia DG (obstructive sleep apnea) Diabetes mellitus Intracardiac thrombus Paroxysmal atrial fibrillation History of congestive heart failure History of cardiomyopathy ICD (implantable cardioverter-defibrillator) in place Surgical History Hx of colonoscopy History of eye surgery Hx of rotator cuff surgery History of permanent cardiac pacemaker placement Family History Father No problems noted. Mother No problems noted. Sister CAD (coronary artery disease) Social History Household Members: None Housing: House Do you presently have visiting nurse or other home services: No Alcohol intake: never Comment: n/a Patient Tobacco Use Status: Current everyday Tobacco user Tobacco use type: Cigarette Cigarettes Per Day: 3 e-Cigarette/Vaping Use: Never Used service: No Review of Systems Const Denies chills, Denies fatigue, Denies fever(s), Denies frequent falls, Denies weakness, Denies weight gain and Denies weight loss ENT Denies dizziness Card Denies chest pain, Denies leg edema, Denies lightheadedness, Denies palpitations, Denies dyspnea, Denies dyspnea on exertion, Denies orthopnea and Denies other (loss of consciousness) Resp Denies cough, Denies dyspnea and Denies dyspnea on exertion GI Denies hematochezia and Denies change in stool character Musc Denies abnormal gait, Denies muscle weakness, Denies numbness, Denies radiating pain into limb and Denies tingling Neuro Denies abnormal gait, Denies dizziness, Denies frequent falls, Denies numbness, Denies tingling and Denies weakness Endo Denies fatigue and Denies palpitations Physical Exam Vital Signs: Last Vital Signs Pulse 79 09/16/23 08:58 BP 92/60 09/16/23 08:58 BMI result Body Mass Index 16.4 Const General: cooperative, comfortable, alert and awake Nutritional Appearance: thin Orientation/consciousness: patient oriented x3 Limitations: no limitations Neck Neck: Yes trachea midline, Yes supple and Yes no JVD Resp Effort & Inspection: normal respiratory effort Auscultation: clear to auscultation bilaterally Cardio Jugular venous distension: no JVD Palpation: normal PMI Rate: regular rate Rhythm: regular rhythm Heart sounds: S1 normal heart sound present and S2 normal heart sound present GI Auscultation: normal bowel sounds Skin General skin exam: ecchymosis Neuro General: patient oriented x3 and no focal motor deficits Extrem General: Yes no clubbing, cyanosis or edema Psych Appearance: grossly normal Office Procedures Cardiac Device Check Cardiac Device Check Details: Single-chamber [facility] ICD in place. Programmed in VVI at 40 beats per minute. Ventricular pacing thresholds excellent and reprogrammed to enhance battery life. Ventricular sensing was excellent. Pacing and shock lead impedance is stable. Battery life is at about 10 years. Two episodes of nonsustained VT which could represent short episodes of SVT. [id number] Cardiac Device Check, single lead implantable defibrillator Procedure code (CPT) selection complete EKG Details: EKG shows normal sinus rhythm normal EKG with mild QTC prolongation at 465 milliseconds [id number], Complete Assessment & Plan Assessment & Plan (1) Cardiomyopathy: Code(s): I42.9 - Cardiomyopathy, unspecified Category: Medical Plan: Cardiomyopathy with improved LV EF to 45-50% with stabilized syndrome of heart failure since maintaining rhythm. Currently appears to be euvolemic and well compensated. I have advised him to reduce his furosemide dose to 3 times a week. Daily weight monitoring avoidance of salt loading was discussed. Eventually taper and discontinue furosemide therapy for his congestive symptoms remained in control. Continue Jardiance which she is tolerating well. Continue sotalol as a neurohormonal modulation as a beta-abdulaziz and antiarrhythmic. Continue valsartan. Can not maximize or switch to Entresto given his low blood pressure and intolerance in the past. Follow-up echocardiogram in 4 months time. Advised to call me with worsening symptoms. (2) ICD (implantable cardioverter-defibrillator) in place: Comment: Reviewed note 04/30/23 Code(s): Z95.810 - Presence of automatic (implantable) cardiac defibrillator Category: Medical Plan: ICD in place for primary prevention. ICD is working well. Reprogrammed for adequate function. Will continue to monitor remotely. (3) Paroxysmal atrial fibrillation: Code(s): I48.0 - Paroxysmal atrial fibrillation Category: Medical Plan: Paroxysmal atrial fibrillation leading to heart failure syndrome. Has remained suppressed on sotalol therapy. Has been doing well with sotalol therapy. Continue the same. Will require semi annual EKGs will be pursued in the office. Has done extremely well with rhythm control and will pursue that approach. Continue full oral anticoagulation, currently on Eliquis 5 mg b.i.d.. Semi annual renal function test should be pursued. Will follow up in the clinic in 6 months time, sooner p.r.n.. Thank you for allowing me to partake in his care Orders: Orders CA echo transthoracic complete 4 Months I42.9 - Cardiomyopathy, unspecified Medications: Changed From furosemide 20 mg See Protocol PO DAILY 90 days 90 tabs 3RF I42.9 - Cardiomyopathy, unspecified To furosemide 20 mg See Protocol PO .3 times a week 90 days 90 tabs 1RF I42.9 - Cardiomyopathy, unspecified Coding Level of Care Code Est Pt Level 4 (79174) Diagnoses Cardiomyopathy I42.9 ICD (implantable cardioverter-defibrillator) in place Z95.810 Paroxysmal atrial fibrillation I48.0 CPT Codes Cardiac Device Check - Cardiac Device 4: [id number] Cardiac Device Check, single lead implantable defibrillator ([id number]) EKG - CPT: 88442-[id number], Complete ([id number])
[2023-09-16 08:58] VITALS: BP 92/60; PULSE 79; BMI 16.4
== END 2023-09-16 09:20 | disposition home or self-care (01) ==
PROVIDERS: PCP Family Medicine; Visit Provider Internal Medicine Cardiovascular Disease
DX: I42.9 Cardiomyopathy, unspecified (principal); Z95.810 Presence of automatic (implantable) cardiac defibrillator; I48.0 Paroxysmal atrial fibrillation
CPT/HCPCS: 93010; 93282; 99214

== ENCOUNTER → 2023-09-16 08:48 | Outpatient (BNVA) | payer MEDICARE, MEDICAID, SELFPAY | PROVIDERS: PCP Family Medicine; Visit Provider Internal Medicine Cardiovascular Disease | DX: Z45.02 Encounter for adjustment and management of automatic implantable cardiac defibrillator (principal); I42.9 Cardiomyopathy, unspecified; I48.0 Paroxysmal atrial fibrillation | CPT/HCPCS: 93005; 99212 ==

== ENCOUNTER 2023-09-30 08:50 | Outpatient (REF) | payer MEDICARE, MEDICAID, SELFPAY ==
[2023-09-30 12:21] LABS: Creatinine Urine 77.49 mg/dL
== END 2023-09-30 08:51 | disposition home or self-care (01) ==
LOC: HO.HHCL 08:50
PROVIDERS: Visit Provider Family Medicine
DX: Z13.89 Encounter for screening for other disorder (principal)
CPT/HCPCS: 82043; 82570

== ENCOUNTER 2023-09-30 09:45 | Emergency (ER) | payer MEDICARE, MEDICAID, SELFPAY ==
[2023-09-30 09:52] VITALS: BP 109/62; PULSE 75; PULSE 81; RESP 16; TEMP 36.4; O2SAT 94; O2SAT 97; BMI 17.9
[2023-09-30 09:56] LABS: Glucose, Whole Blood 103 mg/dL (60-115)
--- NOTE | 2023-09-30 10:01 | ECG_ITS ---
Test Reason : syncope Blood Pressure : / mmHG Vent. Rate : 080 BPM Atrial Rate : 080 BPM P-R Int : 152 ms QRS Dur : 090 ms QT Int : 408 ms P-R-T Axes : 061 061 073 degrees QTc Int : 470 ms Normal sinus rhythm Normal ECG When compared with ECG of 07-NOV-2022 09:59, No significant change was found Referred By: Generic ED Physician Electronically Signed By:PEPITO VELÁSQUEZ MD
--- NOTE | 2023-09-30 10:12 | PC.NURSE ---
upon arrival to ED patient is awake and alert, poc taken 103. patient given snack and orange juice
[2023-09-30 10:20] LABS: Basophils Absolute Auto 0.1 X10*3/uL (0.0-0.2); Basophils Percent Auto 1.1 % (0-2); Eosinophils Absolute Auto 0.4 X10*3/uL (0.0-0.4); Eosinophils Percent Auto 5.1 % (0-4); Hematocrit 49.9 % (42.0-52.0); Hemoglobin 16.6 g/dl (14.0-18.0); Imm Gran Abs Auto 0.02 X10*3/uL (0.00-0.03); Imm Gran Pct Auto 0.3 % (0.0-0.4); Lymphocytes Absolute Auto 2.1 X10*3/uL (1.2-4.9); Lymphocytes Percent Auto 29.6 % (20-40); MANUAL DIFF FLAG SCAN; Mean Corpuscular HGB Conc 33.3 g/dl (31.0-36.0); Mean Corpuscular Hemoglobin 33.1 pg (27.0-33.0); Mean Platelet Volume 10.8 fL (9.4-12.4); Monocytes Absolute Auto 0.7 X10*3/uL (0.1-1.2); Monocytes Percent Auto 9.9 % (2-11); Neutrophils Absolute Auto 3.8 x10*3/uL (2.0-8.3); Platelet Count 117 X10*3/uL (160-400); Red Blood Count 5.01 X10*6/uL (4.60-5.80); Red Cell Distribution Width 13.4 % (11.0-16.0); SCAN SMEAR FLAG 1
[2023-09-30 10:23] LABS: Mean Corpuscular Volume 99.6 fL (80.0-98.0)
[2023-09-30 10:46] LABS: Alanine Aminotransferase 15 U/L (0-40); Albumin Level 3.8 g/dL (3.5-5.0); Alkaline Phosphatase 67 U/L (39-117); Anion Gap 10 (12-20); Aspartate Amino Transferase 17 U/L (5-37); Bilirubin Total 0.4 mg/dL (0.0-1.0); Blood Urea Nitrogen 25 mg/dL (9-16); Calcium 9.1 mg/dL (8.4-10.2); Carbon Dioxide 28 mmol/L (22-29); Chloride 108 mmol/L (96-108); Creatinine Clr Calc Pharmacy 60.3; Estimated Glomerular Filt Rate > 60; Glucose Random 169 mg/dL (60-115); Potassium 5.1 mmol/L (3.3-5.1); Sodium 141 mmol/L (135-145); Total Protein 6.5 g/dL (6.5-8.0)
[2023-09-30 10:51] LABS: Glucose, Whole Blood 205 mg/dL (60-115)
[2023-09-30 10:54] LABS: SLIDE REVIEW VERIFIED
[2023-09-30 11:02] VITALS: BP 104/65; PULSE 87; RESP 16; TEMP 36.9; O2SAT 93
[2023-09-30 11:05] VITALS: BP 104/65; PULSE 85; RESP 16; TEMP 36.8; O2SAT 93
[2023-09-30 12:42] VITALS: BP 132/81; PULSE 74; RESP 18; O2SAT 96
[2023-09-30 13:07] LABS: Appearance Urine Clear; Color Urine Yellow; Glucose Urine UA >=1000 mg/dL (Negative); Leukocyte Esterase Urine Negative (Negative); Nitrite Urine Negative (Negative); Specific Gravity - Urine >= 1.030 (1.005-1.025); UMIC TRIGGER UACC YES; Urine Blood Negative (Negative); Urine Ketones Negative (Negative); Urine Protein Trace mg/dL (Neg-Trace)
[2023-09-30 13:09] LABS: Bacteria Urine None Seen (None Seen); Hyaline Casts Urine 0-2 /LPF (0-2); RBC Urine 0-2 /HPF (0-2); Squamous Epithelial Cell Urine 0-2 /HPF (0-2); WBC Urine 0-5 /HPF (0-5)
--- NOTE | 2023-09-30 13:14 | ED.GENADULT ---
HPI - General Adult General Chief complaint: Syncope Stated complaint: SYNCOPE,LOW BS 46,NOW 156 PER EMS Time Seen by Provider: 09/30/23 13:12 History of Present Illness HPI narrative: This is a 68-year-old man with a past medical history of hypertension, hyperlipidemia, paroxysmal atrial fibrillation with ICD, insulin-dependent diabetes mellitus, DG with CPAP, have rough, nonischemic cardiomyopathy was brought in by EMS for evaluation of syncope and hypoglycemia. History obtained with in-person Kyrgyz for viral (Eliseo). Patient states that he was having blood work done this morning. Patient states that he had not eaten or had filled this morning. Patient states that he had about 7 tubes of blood work and states that he began to feel dizzy when they were drawing the 5th tube of blood work. Patient states no chest pain, dyspnea or palpitations. Patient states no headache, neck pain or paresthesias. Patient's family (daughter) states that he was given sugar as he was found to have a low blood glucose. Patient's daughter states his sugar level improved and that he return to baseline mentation. She states that he did not fall or hit his head. She states that he did return to normal mentation with improved blood glucose. Patient states no tongue biting or incontinence. Family states no generalized seizure activity. Patient states no recent fevers, chills, cough or congestion. Patient states no changes in bowel habits or any urinary symptoms. Patient states no abdominal pain, nausea or vomiting. Patient reports history of previous episode of dizziness with loss of consciousness when he was first diagnosed with diabetes with low blood sugars when he was in [place]. Related Data Home Medications ?Medication ?Instructions ?Recorded ?Confirmed lancets 28 gauge (FreeStyle #100 ea 04/18/20 09/16/23 Lancets) metformin 1,000 mg tablet 1,000 mg PO BID 04/18/20 09/16/23 pen needle, diabetic 31 gauge x #1,200 ea 04/18/20 09/16/2309/11 insulin glargine 100 unit/mL (3 20 unit subcut DAILY 07/04/20 09/16/23 mL) subcutaneous pen amitriptyline 10 mg tablet 10 mg PO BEDTIME 10/05/20 09/16/23 atorvastatin 10 mg tablet 10 mg PO BEDTIME 10/05/20 09/16/23 blood sugar diagnostic (FreeStyle #10 ea 10/05/20 09/16/23 Test strips) gabapentin 300 mg capsule 300 mg PO TID 10/05/20 09/16/23 multivitamin 1 tab PO DAILY 01/09/21 09/16/23 chlorhexidine gluconate 0.12 % PO 05/09/23 09/16/23 mouthwash Previous Rx's ?Medication ?Instructions ?Recorded bisacodyl 5 mg tablet,delayed 20 mg (4 x 5 mg) PO ONCE 05/09/23 release (Dulcolax (bisacodyl)) colonoscopy prep 1 day #4 tabs polyethylene glycol 3350 17 238 g PO ONCE laxative effect 1 05/09/23 gram/dose oral powder (Miralax) day #238 grams apixaban 5 mg tablet (Eliquis) 5 mg PO BID #60 tabs 05/16/23 sotalol 80 mg tablet 80 mg PO BID #60 tabs 05/16/23 valsartan 40 mg tablet 20 mg (1/2 x 40 mg) PO BID #60 tabs 05/21/23 empagliflozin 25 mg tablet 25 mg PO QAM #30 tabs 06/13/23 (Jardiance) furosemide 20 mg tablet 20 mg PO .3 times a week 90 days 09/27/23 #90 tabs Allergies Allergy/AdvReac Type Severity Reaction Status Date / Time No Known Allergies Allergy Verified 09/30/23 09:58 Review of Systems Review of Systems: ROS as per HPI [facility] Past Medical History Medical History Implantable cardioverter-defibrillator (ICD) at end of battery life Paroxysmal atrial flutter Atrial flutter with rapid ventricular response Vitamin D deficiency HLD (hyperlipidemia) HTN (hypertension) T2DM (type 2 diabetes mellitus) Hyperlipidemia DG (obstructive sleep apnea) Diabetes mellitus Intracardiac thrombus Paroxysmal atrial fibrillation History of congestive heart failure History of cardiomyopathy ICD (implantable cardioverter-defibrillator) in place Surgical History Hx of colonoscopy History of eye surgery Hx of rotator cuff surgery History of permanent cardiac pacemaker placement Family History Family History Father No problems noted. Mother No problems noted. Sister CAD (coronary artery disease) Social History Social History Household Members: None Housing: House Do you presently have visiting nurse or other home services: No Alcohol intake: never Comment: n/a Patient Tobacco Use Status: Current everyday Tobacco user Tobacco use type: Cigarette Cigarettes Per Day: 3 e-Cigarette/Vaping Use: Never Used Advance Directives: Yes Advance Directives Information Provided: No Advance Directives on File: No service: No Physical Exam ED Vital Signs: Vital Signs - 24 hr 09/30/23 09:52 09/30/23 11:02 09/30/23 11:05 Temperature 97.6 F 98.5 F 98.3 F Pulse Rate 75 87 85 Respiratory Rate 16 16 16 Blood Pressure 109/62 104/65 104/65 Pulse Oximetry 97 93 93 Oxygen Delivery Method Room Air Room Air Room Air 09/30/23 12:42 Temperature Pulse Rate 74 Respiratory Rate 18 Blood Pressure 132/81 Pulse Oximetry 96 Oxygen Delivery Method Room Air BMI result Body Mass Index 17.9 Gen: NAD, AOx3 HEENT: NCAT, EOMI, normal conjunctiva, no lingual lacerations CV: RRR, no murmurs appreciated Pulm: CTAB, no increased work of breathing GI: Soft, NTND, no rebound, guarding or rigidity MSK: No midline vertebral tenderness to palpation, full range of motion with neck flexion/extension and lateral 45 degree rotation Neuro: Cranial nerves 2-12 are intact, no dysmetria or dysdiadochokinesia, 5/5 strength in bilateral upper and lower extremity compartments, Romberg negative, sensation intact to light touch in bilateral upper and lower extremities, no focal neurological deficits Medical Decision Making Medical Decision Making MDM Narrative: Differential diagnosis includes, but is not limited vasovagal syncope, hypoglycemia, seizure. Patient is afebrile and hemodynamically stable on room air. Exam is benign and reassuring. Patient has no focal neurological deficits. I reviewed and interpreted labs, which are noncontributory. I reviewed and interpreted EKG, which is unremarkable for any acute findings. Considered arrhythmia, but EKGs reassuring and lacking for any concerning morphologies. Further, history is more suggestive of hypoglycemia and/or vasovagal syncope. I suspect patient's symptoms are most likely secondary to hypoglycemia and/or vasovagal syncope given context report episode of syncope. I have lower suspicion for seizure in the setting of hypoglycemia given history, lack of tongue biting and incontinence. On re-examination, patient is well-appearing and in no acute distress. ?Patient states symptoms have resolved. Patient is tolerating p.o. intake and his glucose has normalized. There is no indication for further emergent evaluation in this otherwise well-appearing patient as above. Patient is provided written and verbal instructions, educational materials, recommendations for outpatient follow-up, strict return precautions and teach back is performed. ?Patient states understanding and agreement with plan of care. ?Patient is discharged home in stable and improved condition. Admission/Observation Consideration of admission/observation: Escalation of care including admission/observation considered Lab Data MDM Lab Attestation statement: I reviewed the patient's lab results. 09/30/23 10:11 09/30/23 10:11 Labs: Lab Results 09/30/23 09/30/23 09/30/23 Range/Units 09:53 10:11 10:48 WBC 7.0 (4.8-10.8) X10*3/uL RBC 5.01 (4.60-5.80) X10*6/uL Hgb 16.6 (14.0-18.0) g/dl Hct 49.9 (42.0-52.0) % MCV 99.6 H (80.0-98.0) fL MCH 33.1 H (27.0-33.0) pg MCHC 33.3 (31.0-36.0) g/dl RDW 13.4 (11.0-16.0) % Plt Count 117 L (160-400) X10*3/uL MPV 10.8 (9.4-12.4) fL Immature Gran % (Auto) 0.3 (0.0-0.4) % Neut % (Auto) 54.0 (45-73) % Lymph % (Auto) 29.6 (20-40) % [place] % (Auto) 9.9 (2-11) % Eos % (Auto) 5.1 H (0-4) % Baso % (Auto) 1.1 (0-2) % Lymph # (Auto) 2.1 (1.2-4.9) X10*3/uL [place] # (Auto) 0.7 (0.1-1.2) X10*3/uL Eos # (Auto) 0.4 (0.0-0.4) X10*3/uL Baso # (Auto) 0.1 (0.0-0.2) X10*3/uL Abs Immat Gran (auto) 0.02 (0.00-0.03) X10*3/uL Absolute Neuts (auto) 3.8 (2.0-8.3) x10*3/uL Absolute Nucleated RBC 0.000 (0.0-0.012) X10*3/uL Nucleated RBC % (auto) 0.0 (0.0-0.2) /100WBC Smear Tech's Comments VERIFIED Sodium 141 (135-145) mmol/L Potassium 5.1 (3.3-5.1) mmol/L Chloride 108 (96-108) mmol/L Carbon Dioxide 28 (22-29) mmol/L Anion Gap 10 L (12-20) BUN 25 H (9-16) mg/dL Creatinine 0.86 (0.5-1.4) mg/dL Estim Creat Clear Calc 60.3 Estimated GFR > 60 POC Glucose 103 205 H (60-115) mg/dL Random Glucose 169 H (60-115) mg/dL Calcium 9.1 (8.4-10.2) mg/dL Total Bilirubin 0.4 (0.0-1.0) mg/dL AST 17 (5-37) U/L ALT 15 (0-40) U/L Alkaline Phosphatase 67 (39-117) U/L Total Protein 6.5 (6.5-8.0) g/dL Albumin 3.8 (3.5-5.0) g/dL Urine Color Urine Appearance Urine pH (5.0-9.0) Ur Specific Sachse (1.005-1.025) Urine Protein (Neg-Trace) mg/dL Urine Glucose (UA) (Negative) mg/dL Urine Ketones (Negative) mg/dL Urine Blood (Negative) Urine Nitrite (Negative) Ur Leukocyte Esterase (Negative) Urine RBC (0-2) /HPF Urine WBC (0-5) /HPF Ur Squamous Epith Cells (0-2) /HPF Urine Bacteria (None Seen) Hyaline Casts (0-2) /LPF 09/30/23 Range/Units 13:00 WBC (4.8-10.8) X10*3/uL RBC (4.60-5.80) X10*6/uL Hgb (14.0-18.0) g/dl Hct (42.0-52.0) % MCV (80.0-98.0) fL MCH (27.0-33.0) pg MCHC (31.0-36.0) g/dl RDW (11.0-16.0) % Plt Count (160-400) X10*3/uL MPV (9.4-12.4) fL Immature Gran % (Auto) (0.0-0.4) % Neut % (Auto) (45-73) % Lymph % (Auto) (20-40) % [place] % (Auto) (2-11) % Eos % (Auto) (0-4) % Baso % (Auto) (0-2) % Lymph # (Auto) (1.2-4.9) X10*3/uL [place] # (Auto) (0.1-1.2) X10*3/uL Eos # (Auto) (0.0-0.4) X10*3/uL Baso # (Auto) (0.0-0.2) X10*3/uL Abs Immat Gran (auto) (0.00-0.03) X10*3/uL Absolute Neuts (auto) (2.0-8.3) x10*3/uL Absolute Nucleated RBC (0.0-0.012) X10*3/uL Nucleated RBC % (auto) (0.0-0.2) /100WBC Smear Tech's Comments Sodium (135-145) mmol/L Potassium (3.3-5.1) mmol/L Chloride (96-108) mmol/L Carbon Dioxide (22-29) mmol/L Anion Gap (12-20) BUN (9-16) mg/dL Creatinine (0.5-1.4) mg/dL Estim Creat Clear Calc Estimated GFR POC Glucose (60-115) mg/dL Random Glucose (60-115) mg/dL Calcium (8.4-10.2) mg/dL Total Bilirubin (0.0-1.0) mg/dL AST (5-37) U/L ALT (0-40) U/L Alkaline Phosphatase (39-117) U/L Total Protein (6.5-8.0) g/dL Albumin (3.5-5.0) g/dL Urine Color Yellow Urine Appearance Clear Urine pH 6.0 (5.0-9.0) Ur Specific Sachse >= 1.030 H (1.005-1.025) Urine Protein Trace (Neg-Trace) mg/dL Urine Glucose (UA) >=1000 H (Negative) mg/dL Urine Ketones Negative (Negative) mg/dL Urine Blood Negative (Negative) Urine Nitrite Negative (Negative) Ur Leukocyte Esterase Negative (Negative) Urine RBC 0-2 (0-2) /HPF Urine WBC 0-5 (0-5) /HPF Ur Squamous Epith Cells 0-2 (0-2) /HPF Urine Bacteria None Seen (None Seen) Hyaline Casts 0-2 (0-2) /LPF Independent Interpretation I performed an independent interpretation of an: EKG Interpretation: EKG shows sinus rhythm at 80 beats per minute, TN 152, QRS 90, QTC 470, no Brugada morphology, biphasic T-waves leads V1 through V3, no STEMI (compared to prior EKG November 07, 2022 there are no diagnostic ischemic changes) Independent Historian Clinical information obtained from an independent historian. History obtained from or confirmed by: Other (Daughter) Daughter provides additional history as per HPI above Discharge Plan Discharge Clinical Impression: Hypoglycemia, Syncope Patient Disposition: Home, Self-Care Instructions: Syncope (ED), Hypoglycemia in a Person with Diabetes (ED) Additional Instructions: You were seen and evaluated in the emergency room. Your vital signs were normal and he did not have fever. ? Your blood work was normal. Please follow-up with your primary care doctor in the next 5-7 days. ? Please return to the emergency room if you develop any worsening symptoms including, but not limited to chest pain, difficulty breathing, vision changes, hearing changes, dizziness, loss of consciousness, change in mental status, low blood sugar or high blood sugar. Fue atendido y evaluado en la karyna de emergencias. Minal signos vitales trinh normales y no ten?a fiebre. ? Tu an?lisis de erica fue normal. Cinthya un seguimiento con lazo m?dico de atenci?n primaria en los pr?ximos 5 a 7 d?as. ? Regrese a la karyna de emergencias si presenta alg?n s?ntoma que empeore, incluidos, entre otros, dolor en el pecho, dificultad para respirar, cambios en la visi?n, cambios en la audici?n, mareos, p?rdida del conocimiento, cambios en el estado mental, niveles bajos de az?car en la erica o niveles altos de az?car en la erica. Prescriptions: No Action Eliquis 5 mg tablet 5 mg PO BID Qty: 60 5RF sotalol 80 mg tablet 80 mg PO BID Qty: 60 5RF valsartan 40 mg tablet 20 mg PO BID Qty: 60 11RF Jardiance 25 mg tablet 25 mg PO QAM Qty: 30 11RF furosemide 20 mg tablet 20 mg PO .3 times a week 90 Days Qty: 90 3RF Protocol: Hold for SBP< HOLD for SBP < : 90 (DME) pen needle, diabetic 31 gauge x 5/16 needle See Rx Instructions .ROUTE .MEDSUPPLY Qty: 1200 Rx Instructions: As directed (DME) lancets [FreeStyle Lancets] 28 gauge misc See Rx Instructions .ROUTE .MEDSUPPLY Qty: 100 Rx Instructions: As directed (DME) FreeStyle Test Strip See Rx Instructions .ROUTE .MEDSUPPLY Qty: 10 Rx Instructions: As directed two times a day multivitamin Tablet 1 tab PO DAILY metformin 1,000 mg tablet 1,000 mg PO BID insulin glargine 100 unit/mL (3 mL) insulin pen 20 unit subcut DAILY amitriptyline 10 mg tablet 10 mg PO BEDTIME atorvastatin 10 mg tablet 10 mg PO BEDTIME gabapentin 300 mg capsule 300 mg PO TID chlorhexidine gluconate 0.12 % mouthwash PO bisacodyl [Dulcolax (bisacodyl)] 5 mg tablet,delayed release (DR/EC) 20 mg PO ONCE 1 Days Qty: 4 0RF Rx Instructions: Day before procedure, prep day Take 4 tablets by mouth upon awakening followed by large glass of water polyethylene glycol 3350 [Miralax] 17 gram/dose powder 238 g PO ONCE 1 Days Qty: 238 0RF Rx Instructions: Take as directed by mouth the day before your procedure. Print Language: Kyrgyz
[2023-09-30 14:33] VITALS: BP 96/54; PULSE 93; RESP 16; TEMP 36.2; O2SAT 95
== END 2023-09-30 14:34 | disposition home or self-care (01) ==
PROVIDERS: Emergency Provider Emergency Medicine; PCP Family Medicine
DX: E11.649 Type 2 diabetes mellitus with hypoglycemia without coma (principal); R55 Syncope and collapse; I10 Essential (primary) hypertension; E78.5 Hyperlipidemia, unspecified; I48.0 Paroxysmal atrial fibrillation; F17.210 Nicotine dependence, cigarettes, uncomplicated; Z95.810 Presence of automatic (implantable) cardiac defibrillator; Z79.01 Long term (current) use of anticoagulants; Z79.4 Long term (current) use of insulin
CPT/HCPCS: 36415; 80053; 81001; 82043; 82570; 82947; 85025; 93005; 99283; 99284

== ENCOUNTER → 2023-09-30 10:01 | Outpatient (BNV) | payer MEDICARE, MEDICAID, SELFPAY | PROVIDERS: Emergency Provider Emergency Medicine; PCP Family Medicine; Visit Provider Internal Medicine Cardiovascular Disease | DX: R55 Syncope and collapse (principal) | CPT/HCPCS: 93010 ==

== ENCOUNTER 2023-11-18 08:56 | Outpatient (REF) | payer MEDICARE, MEDICAID, SELFPAY ==
[2023-11-18 11:17] LABS: Hematocrit 49.2 % (42.0-52.0); Hemoglobin 16.3 g/dl (14.0-18.0); Mean Corpuscular HGB Conc 33.1 g/dl (31.0-36.0); Mean Corpuscular Volume 99.6 fL (80.0-98.0); Mean Platelet Volume 11.3 fL (9.4-12.4); Platelet Count 144 X10*3/uL (160-400); Red Blood Count 4.94 X10*6/uL (4.60-5.80); Red Cell Distribution Width 13.6 % (11.0-16.0); White Blood Count 7.2 X10*3/uL (4.8-10.8)
[2023-11-18 11:29] LABS: Estimated Average Glucose 171 mg/dL; Hemoglobin A1c % 7.6 % (<6.0)
[2023-11-18 11:43] LABS: Alanine Aminotransferase 18 U/L (0-40); Albumin Level 4.1 g/dL (3.5-5.0); Alkaline Phosphatase 56 U/L (39-117); Anion Gap 10 (12-20); Aspartate Amino Transferase 19 U/L (5-37); Bilirubin Direct 0.2 mg/dL (0.0-0.5); Bilirubin Total 0.5 mg/dL (0.0-1.0); Blood Urea Nitrogen 20 mg/dL (9-16); Calcium 9.3 mg/dL (8.4-10.2); Carbon Dioxide 29 mmol/L (22-29); Chloride 105 mmol/L (96-108); Cholesterol 96 mg/dL (<200); Estimated Glomerular Filt Rate > 60; Glucose Fasting 159 mg/dL (60-99); HDL Cholesterol 34 mg/dL (>40); LDL Cholesterol Calculated 44 mg/dL (<100); Potassium 4.3 mmol/L (3.3-5.1); Sodium 140 mmol/L (135-145); Total Protein 6.7 g/dL (6.5-8.0); Triglycerides 93 mg/dL (<150)
[2023-11-18 11:52] LABS: HBS Num1 21.01 mIU/mL (0-7.99); HBsAGNum1 0.31 S/CO (0.00-0.99); HIV AB/AG Nonreactive (Nonreactive); HIV Num 1 0.06 S/CO (0.00-0.99); Hepatitis B Surface Antigen Negative (Negative); Syphilis Screen Nonreactive (Nonreactive); ~HepC Num1 0.08 S/CO (0.00-0.79); ~Hepatitis B Surface Antibody REACTIVE (Nonreactive); ~Hepatitis C Antibody Nonreactive (Nonreactive)
[2023-11-18 12:04] LABS: Free T4 (Free Thyroxine) 0.99 ng/dL (0.71-1.85); Thyroid Stimulating Hormone 1.59 uIU/mL (0.32-4.0); Vitamin D 25-OH Total 39.3 ng/mL (>30)
[2023-11-18 14:02] LABS: CT PCR NOT DETECTED (Not Detect.); NG PCR NOT DETECTED (Not Detect.)
== END 2023-11-18 08:57 | disposition home or self-care (01) ==
LOC: HO.HHCL 08:56
PROVIDERS: Visit Provider Family Medicine
DX: Z00.00 Encounter for general adult medical examination without abnormal findings (principal); E11.21 Type 2 diabetes mellitus with diabetic nephropathy; Z79.4 Long term (current) use of insulin; I10 Essential (primary) hypertension; I48.0 Paroxysmal atrial fibrillation; E78.49 Other hyperlipidemia; I50.22 Chronic systolic (congestive) heart failure; J44.9 Chronic obstructive pulmonary disease, unspecified; R91.1 Solitary pulmonary nodule; R44.1 Visual hallucinations; G62.9 Polyneuropathy, unspecified; Z11.59 Encounter for screening for other viral diseases; Z11.3 Encounter for screening for infections with a predominantly sexual mode of transmission
CPT/HCPCS: 80048; 80061; 80076; 82306; 83036; 84439; 84443; 85027; 86706; 86780; 86803; 87340; 87389; 87491; 87591

== ENCOUNTER → 2024-01-28 10:48 | Outpatient (REF) | payer MEDICARE, MEDICAID, SELFPAY ==
--- NOTE | 2024-01-28 10:51 | CA_ITS ---
Transthoracic Echocardiogram Patient (Last, First, Middle): Shaka Kang A Gender: Male Date of : 1955 Age: 68 Procedure Date: 01/28/2024 Procedure Type: Transthoracic Echocardiogram Location: OP Height: 182.88 cm Weight: 55.79 kg BSA: 1.73 m2 Heart Rate: bpm BP: 102 / 70 mmHg Blood Bank Supervisor: TO Referring MD: Gabriel Cassidy MD Symptoms: I42.9 - Cardiomyopathy, unspecified Study Quality: Adequate ECG Rhythm: Sinus Conclusions: - The left ventricular systolic function is mild to moderately decreased. The visually estimated ejection fraction is between 40-45%. - No obvious valvular pathology seen on this study. Findings Left Ventricle Normal left ventricular cavity size. The left ventricular systolic function is mild to moderately decreased. The visually estimated ejection fraction is between 40-45%. There is moderate global hypokinesis. Diastolic function is indeterminate on the basis of available data. There is moderate septal asymmetric hypertrophy. Right Ventricle Mildly increased right ventricular cavity size. There is low normal right ventricular systolic function. There is a pacemaker wire seen in the right ventricle. Atria Both atria are normal in size. Aortic Valve There is a normal trileaflet aortic valve. There is no aortic valve stenosis. There is no aortic valve regurgitation. Mitral Valve The mitral valve appears normal. There is no mitral valve regurgitation. There is no mitral valve stenosis. Pulmonic Valve There is trace pulmonic valve regurgitation. Tricuspid Valve Normal tricuspid valve structure. There is trace tricuspid valve regurgitation. There is no evidence of pulmonary hypertension. Great Vessels The asc aorta is normal in size. Venous The inferior vena cava is normal in size and collapses greater than 50% with inspiration. Pericardium/Pleural There is no evidence of pericardial effusion. Prior Study Comparison Changes noted compared to prior study dated: 11/06/2022. LVEF lower. Recommendations, Care & Conclusions No obvious valvular pathology seen on this study. Measurements 2D Linear Measurements IVSd: 1.33 0.6-0.9/0.6-1.0 cm LVIDd: 4.38 3.9-5.3/4.2-5.9 cm LVIDd Index: 2.53 2.4-3.2/2.2-3.1 cm/m2 LVIDs: 3.07 2.0-3.6 cm LVPWd: 0.93 0.7-1.1 cm LA Diam: 3.00 2.7-3.8/3.0-4.0 cm LAIDs Index: 1.73 1.5-2.3 cm/m2 LV Mass: 216.53 67-162/88-224 g LV Mass Index: 125.16 43-95/49-115 g/m2 LVOT Diam: 2.40 3.0+(-)1.3 cm 2D Systolic Function EF 4C: 35.50 >55% EF 2C: 41.20 >55% EF BiP: 38.50 >55% Aortic Valve AoV Pk Yung: 0.83 AoV Mn Yung: 0.61 AoV VTI: 0.13 AoV Pk Grad: 3.00 Aov Mn Grad: 2.00 AMY Cont.VTI: 3.51 LVOT LVOT Pk Yung: 0.65 LVOT Mn Yung: 0.42 LVOT VTI: 0.10 LVOT Pk Grad: 2.00 LVOT Mn Grad: 1.00 LVOT Diam: 2.40 LVOT Area: 4.52 Right Ventricle TAPSE (mm): 18.30 TVS' Yung: 9.90 Tricuspid Valve TR Pk Yung: 2.19 TR Pk Grad: 19.00 RA Press: 3.00 RVSP: 22.00 Great Vessels Aorta Sinus of Valsalva: 4.39 2.0-3.[address] [place]: 3.43 1.7-3.4 cm Ao Asc: 3.70 2.1-3.4 cm Updated in Other Vendor System with Status of Final William Beard MD electronically signed on 01/29/2024 12:14:24 PM with status of Final
== END ==
LOC: HO.CARD 10:48
PROVIDERS: PCP Family Medicine; Visit Provider Internal Medicine Cardiovascular Disease
DX: I42.9 Cardiomyopathy, unspecified (principal)
CPT/HCPCS: 93306

== ENCOUNTER → 2024-01-28 10:51 | Outpatient (BNV) | payer MEDICARE, MEDICAID, SELFPAY | PROVIDERS: PCP Family Medicine; Visit Provider Internal Medicine | DX: I42.2 Other hypertrophic cardiomyopathy (principal); I51.89 Other ill-defined heart diseases | CPT/HCPCS: 93306 ==

== ENCOUNTER → 2024-02-26 23:59 | Outpatient (BNV) | payer MEDICARE, MEDICAID, SELFPAY ==
--- NOTE | 2024-03-02 16:59 | MHC.OFFVIS ---
Intake Visit Reasons: Remote ICD check- [facility] Allergies No Known Allergies Allergy (Verified 09/30/23 09:58) [facility] Medical History Implantable cardioverter-defibrillator (ICD) at end of battery life Paroxysmal atrial flutter Atrial flutter with rapid ventricular response Vitamin D deficiency HLD (hyperlipidemia) HTN (hypertension) T2DM (type 2 diabetes mellitus) Hyperlipidemia DG (obstructive sleep apnea) Diabetes mellitus Intracardiac thrombus Paroxysmal atrial fibrillation History of congestive heart failure History of cardiomyopathy ICD (implantable cardioverter-defibrillator) in place Surgical History Hx of colonoscopy History of eye surgery Hx of rotator cuff surgery History of permanent cardiac pacemaker placement Family History Father No problems noted. Mother No problems noted. Sister CAD (coronary artery disease) Social History Household Members: None Housing: House Do you presently have visiting nurse or other home services: No Alcohol intake: never Comment: n/a Patient Tobacco Use Status: Current everyday Tobacco user Tobacco use type: Cigarette Cigarettes Per Day: 3 e-Cigarette/Vaping Use: Never Used service: No Office Procedures Cardiac Device Check Cardiac Device Check Details: Remote ICD report generated 02/26/2024. ICD function is adequate [id number] Cardiac Interrogation, implant defibrillator w/interim Procedure code (CPT) selection complete Assessment & Plan Assessment & Plan (1) ICD (implantable cardioverter-defibrillator) in place: Comment: Reviewed note 04/30/23 Code(s): Z95.810 - Presence of automatic (implantable) cardiac defibrillator Category: Medical Plan: See above Coding Level of Care Code Procedure Only Diagnoses ICD (implantable cardioverter-defibrillator) in place Z95.810 CPT Codes Cardiac Device Check - Cardiac Device 13: [id number] Cardiac Interrogation, implant defibrillator w/interim ([id number])
== END ==
PROVIDERS: PCP Family Medicine; Visit Provider Internal Medicine Cardiovascular Disease
DX: Z45.02 Encounter for adjustment and management of automatic implantable cardiac defibrillator (principal)
CPT/HCPCS: 93295

== ENCOUNTER 2024-03-24 09:11 | Outpatient (AMB) | payer MEDICARE, MEDICAID, SELFPAY ==
--- NOTE | 2024-03-24 09:18 | MHC.OFFVIS ---
Vital Signs 03/24/24 09:19 Height 5 ft 8 in Weight 114 lb 10.246 oz BMI 17.4 BP 108/66 Blood Pressure Location Lt brachial Position Sitting Pulse 93 Intake Visit Reasons: 6 mth fu w/ [facility] check Intake Note: 6 month follow-up with ekg and [facility] check feeling good Pharmacy Clinical Specialist Required: Yes Pharmacy Clinical Specialist Services: Pharmacy Clinical Specialist Offered & Declined Movie Projectionist: Movie Projectionist Present Accompanied by: Daughter Allergies No Known Allergies Allergy (Verified 09/30/23 09:58) Medication List - Last Reconciled 03/24/24 by Gabriel Cassidy MD amitriptyline 10 mg PO BEDTIME apixaban (Eliquis) 5 mg PO BID atorvastatin 10 mg PO BEDTIME bisacodyl (Dulcolax (bisacodyl)) 20 mg (4 x 5 mg) PO ONCE 1 day blood sugar diagnostic (FreeStyle Test strips) As directed two times a day chlorhexidine gluconate 0.12% PO empagliflozin (Jardiance) 25 mg PO QAM furosemide 20 mg See Protocol PO .3 times a week 90 days gabapentin 300 mg PO TID insulin glargine 20 units subcut DAILY lancets (FreeStyle Lancets) As directed metformin 1,000 mg PO BID multivitamin 1 tab PO DAILY pen needle, diabetic As directed polyethylene glycol 3350 (Miralax) 238 grams PO ONCE 1 day sotalol 80 mg PO BID valsartan 20 mg (1/2 x 40 mg) PO BID HPI Comments Details: Shaka comes for follow-up. Patient denies any new cardiac symptoms. No worsening heart failure syndrome. He has not had any abdominal distension, shortness of breath, leg edema, weight gain. Denies any exertional chest pain, lightheadedness. Tolerating his medications well. No prolonged palpitations or irregular heartbeat. No ICD discharge. No syncopal episodes. Recent echocardiogram shows mild reduction LV ejection fraction. FORMERLY [facility], [facility] Medical History Implantable cardioverter-defibrillator (ICD) at end of battery life Paroxysmal atrial flutter Atrial flutter with rapid ventricular response Vitamin D deficiency HLD (hyperlipidemia) HTN (hypertension) T2DM (type 2 diabetes mellitus) Hyperlipidemia DG (obstructive sleep apnea) Diabetes mellitus Intracardiac thrombus Paroxysmal atrial fibrillation History of congestive heart failure History of cardiomyopathy ICD (implantable cardioverter-defibrillator) in place Surgical History Hx of colonoscopy History of eye surgery Hx of rotator cuff surgery History of permanent cardiac pacemaker placement Family History Father No problems noted. Mother No problems noted. Sister CAD (coronary artery disease) Social History Household Members: None Housing: House Do you presently have visiting nurse or other home services: No Alcohol intake: never Comment: n/a Patient Tobacco Use Status: Current everyday Tobacco user Tobacco use type: Cigarette Cigarettes Per Day: 3 e-Cigarette/Vaping Use: Never Used service: No Review of Systems Const Denies chills, Denies fatigue, Denies fever(s), Denies frequent falls, Denies weakness, Denies weight gain and Denies weight loss ENT Denies dizziness Card Denies chest pain, Denies leg edema, Denies lightheadedness, Denies palpitations, Denies dyspnea, Denies dyspnea on exertion, Denies orthopnea and Denies other (loss of consciousness) Resp Denies cough, Denies dyspnea and Denies dyspnea on exertion GI Denies hematochezia and Denies change in stool character Musc Denies abnormal gait, Denies muscle weakness, Denies numbness, Denies radiating pain into limb and Denies tingling Neuro Denies abnormal gait, Denies dizziness, Denies frequent falls, Denies numbness, Denies tingling and Denies weakness Endo Denies fatigue and Denies palpitations Physical Exam Vital Signs: Last Vital Signs Pulse 93 03/24/24 09:19 BP 108/66 03/24/24 09:19 BMI result Body Mass Index 17.4 Const General: cooperative, comfortable, alert and awake Nutritional Appearance: thin Orientation/consciousness: patient oriented x3 Limitations: no limitations Neck Neck: Yes trachea midline, Yes supple and Yes no JVD Resp Effort & Inspection: normal respiratory effort Auscultation: clear to auscultation bilaterally Cardio Jugular venous distension: no JVD Palpation: normal PMI Rate: regular rate Rhythm: regular rhythm Heart sounds: S1 normal heart sound present and S2 normal heart sound present GI Auscultation: normal bowel sounds Skin General skin exam: ecchymosis Neuro General: patient oriented x3 and no focal motor deficits Extrem General: Yes no clubbing, cyanosis or edema Psych Appearance: grossly normal Office Procedures Cardiac Device Check Cardiac Device Check Details: Single-chamber [facility] ICD in place. Programmed in VVI at 40 beats per minute. Few fast high ventricular rate noted lasting up to 6 seconds suggestive of either SVT. Not suggestive of nonsustained ventricular tachycardia. Ventricular pacing thresholds adequate. Ventricular sensing is adequate. Pacing and shock lead impedance is stable. Battery life is at 9 years [id number] Cardiac Device Check, single lead implantable defibrillator Procedure code (CPT) selection complete EKG Details: EKG shows normal sinus rhythm with normal EKG [id number], Complete Assessment & Plan Assessment & Plan (1) Paroxysmal atrial fibrillation: Code(s): I48.0 - Paroxysmal atrial fibrillation Category: Medical Plan: Paroxysmal atrial fibrillation has remained suppressed and has avoided hospitalization has done well with rhythm control approach. Continue pursue rhythm control approach. Continue current sotalol therapy which is tolerating well. Continue full oral anticoagulation, currently on Eliquis 5 mg b.i.d.. Semi annual renal function test is recommended. Continue to avoid stimulants. Advised to call me with new symptoms. (2) Cardiomyopathy: Code(s): I42.9 - Cardiomyopathy, unspecified Category: Medical Plan: Cardiomyopathy with mild reduction LV ejection fraction despite current therapy. He has not been able to tolerate uptitration and neurohormonal modulation due to low blood pressure and prior history of syncope and low blood pressures. Currently on low-dose valsartan as well as on sotalol therapy. Continue both. Continue Jardiance at current prescribed dose. Will add Corlanor to his regimen. Avoidance of cardiotoxic agent was discussed. Signs and symptoms of heart failure were discussed. No signs of fluid buildup and will change his Lasix to oz p.r.n. basis. Discussed management with her daughter who understands. Continue maintain activity level as tolerated. (3) ICD (implantable cardioverter-defibrillator) in place: Comment: Reviewed note 04/30/23 Code(s): Z95.810 - Presence of automatic (implantable) cardiac defibrillator Category: Medical Plan: ICD in place, working well. Reprogrammed for adequate function. Will follow remotely for heart failure and device check. Follow up in the clinic in 6 months time, sooner p.r.n.. Thank you for allowing me to partake in his care Orders: Orders Basic Metabolic Panel Today I48.0 - Paroxysmal atrial fibrillation Medications: New ivabradine (Corlanor) must administer with a meal/food 5 mg PO BID 60 tabs 3RF I48.0 - Paroxysmal atrial fibrillation Changed From furosemide 20 mg See Protocol PO .3 times a week 90 days 90 tabs 3RF I42.9 - Cardiomyopathy, unspecified To furosemide 20 mg See Protocol PO ONCE 90 days PRN 90 tabs 3RF CHF symptoms I42.9 - Cardiomyopathy, unspecified Coding Level of Care Code Est Pt Level 4 (83977) Complex EM visit Add On G2211 Diagnoses Paroxysmal atrial fibrillation I48.0 Cardiomyopathy I42.9 ICD (implantable cardioverter-defibrillator) in place Z95.810 CPT Codes Cardiac Device Check - Cardiac Device 4: [id number]-[id number] Cardiac Device Check, single lead implantable defibrillator ([id number]) EKG - CPT: 49024-Epmzzixegjanpuool, Complete ([id number])
[2024-03-24 09:19] VITALS: BP 108/66; PULSE 93; BMI 17.4
== END 2024-03-24 09:38 | disposition home or self-care (01) ==
PROVIDERS: PCP Family Medicine; Referring Provider Family Medicine; Visit Provider Internal Medicine Cardiovascular Disease
DX: I48.0 Paroxysmal atrial fibrillation (principal); I42.9 Cardiomyopathy, unspecified; Z95.810 Presence of automatic (implantable) cardiac defibrillator
CPT/HCPCS: 93010; 93282; 99214; G2211

== ENCOUNTER 2024-03-24 09:11 | Outpatient (REF) | payer MEDICARE, MEDICAID, SELFPAY ==
[2024-03-24 11:05] LABS: Anion Gap 12 (12-20); Blood Urea Nitrogen 20 mg/dL (9-16); Calcium 9.7 mg/dL (8.4-10.2); Carbon Dioxide 29 mmol/L (22-29); Chloride 102 mmol/L (96-108); Estimated Glomerular Filt Rate > 60; Glucose Random 115 mg/dL (60-115); Potassium 4.4 mmol/L (3.3-5.1); Sodium 139 mmol/L (135-145)
== END 2024-03-24 09:12 | disposition home or self-care (01) ==
LOC: HO.LAB 09:11
PROVIDERS: PCP Family Medicine; Visit Provider Internal Medicine Cardiovascular Disease
DX: I48.0 Paroxysmal atrial fibrillation (principal); I42.9 Cardiomyopathy, unspecified; Z95.810 Presence of automatic (implantable) cardiac defibrillator
CPT/HCPCS: 36415; 80048; 93005; 99212

== ENCOUNTER 2024-05-01 10:45 | Outpatient (AMB) | payer MEDICARE, MEDICAID, SELFPAY ==
[2024-05-01 10:47] VITALS: BP 118/78; BMI 17.8
--- NOTE | 2024-05-01 10:47 | HO.NEPHOV ---
Vital Signs 05/01/24 10:47 Height 5 ft 8 in Weight 117 lb BMI 17.8 BP 118/78 Blood Pressure Location Lt brachial Position Sitting Intake Visit Reasons: Previous Pt-Conf w/daughter Biochemistry Technologist Required: No Accompanied by: Daughter Allergies No Known Allergies Allergy (Verified 05/01/24 10:48) HPI Comments Details: I had the pleasure of seeing Shaka in follow-up of his proteinuria. He is a longstanding diabetic. He claims to have a better blood sugar control now. Does not have any active cardiac symptoms. He is on ARB as well as Jardiance among other medications which is tolerating well. He does not have any orthostatic symptoms. He denies any nausea, vomiting, diarrhea, shortness of breath, paroxysmal nocturnal dyspnea, orthopnea, pedal edema or urinary symptoms. He is not taking excessive nonsteroidal anti-inflammatory medications and maintain good hydration. There were no active complaints at the time of this office visit. [facility] Medical History Implantable cardioverter-defibrillator (ICD) at end of battery life Paroxysmal atrial flutter Atrial flutter with rapid ventricular response Vitamin D deficiency HLD (hyperlipidemia) HTN (hypertension) T2DM (type 2 diabetes mellitus) Hyperlipidemia DG (obstructive sleep apnea) Diabetes mellitus Intracardiac thrombus Paroxysmal atrial fibrillation History of congestive heart failure History of cardiomyopathy ICD (implantable cardioverter-defibrillator) in place Surgical History Hx of colonoscopy History of eye surgery Hx of rotator cuff surgery History of permanent cardiac pacemaker placement Family History Father No problems noted. Mother No problems noted. Sister CAD (coronary artery disease) Social History Household Members: None Housing: House Do you presently have visiting nurse or other home services: No Alcohol intake: never Comment: n/a Patient Tobacco Use Status: Current everyday Tobacco user Tobacco use type: Cigarette Cigarettes Per Day: 3 e-Cigarette/Vaping Use: Never Used service: No Review of Systems Const All systems reviewed & are unremarkable except as noted in HPI and below Physical Exam Vital Signs: Last Vital Signs BP 118/78 05/01/24 10:47 BMI result Body Mass Index 17.8 Const General: comfortable and no acute distress Orientation/consciousness: patient oriented x3 HEENT Head: Yes normocephalic Mouth: Normal oral and palatal mucosa present Eyes EOM: EOMs intact bilaterally Neck Neck: Yes supple Resp Auscultation: clear to auscultation bilaterally Cardio Jugular venous distension: no JVD Rate: regular rate GI Palpation (GI): Soft to palpation Auscultation: normal bowel sounds General: Yes no CVA tenderness Back/Spine/Pelvis Back: no CVA tenderness Skin General skin exam: no rashes or lesions noted Neuro General: patient oriented x3 and moves all extremities Extrem General: Yes no pedal edema Results Reviewed Nephrology Results: Hgb 16.3 g/dl (14.0-18.0) 11/18/23 WBC 7.2 X10*3/uL (4.8-10.8) 11/18/23 Plt Count 144 X10*3/uL (160-400) L 11/18/23 Sodium 143 mmol/L (135-145) 05/01/24 Potassium 4.7 mmol/L (3.3-5.1) 05/01/24 Chloride 108 mmol/L (96-108) 05/01/24 Carbon Dioxide 30 mmol/L (22-29) H 05/01/24 BUN 18 mg/dL (9-16) H 05/01/24 Creatinine 0.82 mg/dL (0.5-1.4) 05/01/24 Calcium 9.7 mg/dL (8.4-10.2) 03/24/24 Urine Protein Trace mg/dL (Neg-Trace) 09/30/23 Urine Creatinine 48.69 mg/dL 05/01/24 Protein/Creatinin Ratio 0.94 (<0.2) H 05/01/24 Assessment & Plan Assessment & Plan (1) HTN (hypertension): Code(s): I10 - Essential (primary) hypertension Category: Medical Qualifiers: Hypertension type: unspecified Qualified Code(s): I10 - Essential (primary) hypertension (2) Diabetic nephropathy: Code(s): E11.21 - Type 2 diabetes mellitus with diabetic nephropathy Category: Medical Qualifiers: Diabetes mellitus type: type 2 Qualified Code(s): E11.21 - Type 2 diabetes mellitus with diabetic nephropathy Plan 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 His renal functions are pretty stable. His blood sugar control is better. He is on valsartan 20 mg which may have to increase based on his serum potassium and hemodynamic status. He is on Jardiance. His blood pressure is at goal. He maintains good hydration. I have ordered blood work and urine studies. I did not make any medication changes at this visit. Further management is pending evolving data. Orders: Orders Protein Creatinine Ratio, Ur 6 Months I10 - Essential (primary) hypertension, E11.21 - Type 2 diabetes mellitus with diabetic nephropathy Electrolytes 05/01/24 E11.21 - Type 2 diabetes mellitus with diabetic nephropathy Blood Urea Nitrogen 05/01/24 E11.21 - Type 2 diabetes mellitus with diabetic nephropathy Creatinine 6 Months I10 - Essential (primary) hypertension, E11.21 - Type 2 diabetes mellitus with diabetic nephropathy Blood Urea Nitrogen 6 Months I10 - Essential (primary) hypertension, E11.21 - Type 2 diabetes mellitus with diabetic nephropathy Electrolytes 6 Months I10 - Essential (primary) hypertension, E11.21 - Type 2 diabetes mellitus with diabetic nephropathy Creatinine 05/01/24 E11.21 - Type 2 diabetes mellitus with diabetic nephropathy Protein Creatinine Ratio, Ur 05/01/24 E11.21 - Type 2 diabetes mellitus with diabetic nephropathy Coding Level of Care Code Est Pt Level 4 (21344) Diagnoses Hypertension, unspecified type I10 Hypertension type: unspecified Diabetic nephropathy associated with type 2 diabetes mellitus E11.21 Diabetes mellitus type: type 2
== END 2024-05-01 11:09 | disposition home or self-care (01) ==
PROVIDERS: PCP Family Medicine; Visit Provider Internal Medicine Nephrology
DX: I10 Essential (primary) hypertension (principal); E11.21 Type 2 diabetes mellitus with diabetic nephropathy
CPT/HCPCS: 99214

== ENCOUNTER 2024-05-01 11:14 | Outpatient (REF) | payer MEDICARE, MEDICAID, SELFPAY ==
[2024-05-01 13:31] LABS: Anion Gap 10 (12-20); Blood Urea Nitrogen 18 mg/dL (9-16); Carbon Dioxide 30 mmol/L (22-29); Chloride 108 mmol/L (96-108); Estimated Glomerular Filt Rate > 60; Potassium 4.7 mmol/L (3.3-5.1); Sodium 143 mmol/L (135-145)
[2024-05-01 13:50] LABS: Creatinine Urine 48.69 mg/dL; Protein/Creatinine Ratio, Ur 0.94 (<0.2); Total Protein Urine Random 46 mg/dL (<12)
== END 2024-05-01 11:15 | disposition home or self-care (01) ==
LOC: HO.10HDL 11:14
PROVIDERS: Visit Provider Internal Medicine Nephrology
DX: E11.21 Type 2 diabetes mellitus with diabetic nephropathy (principal); I10 Essential (primary) hypertension
CPT/HCPCS: 36415; 80051; 82565; 82570; 84156; 84520; 99212

== ENCOUNTER → 2024-05-27 23:59 | Outpatient (BNV) | payer MEDICARE, MEDICAID, SELFPAY ==
--- NOTE | 2024-06-11 14:19 | MHC.OFFVIS ---
Intake Visit Reasons: Remote ICD check- [facility] Allergies No Known Allergies Allergy (Verified 05/01/24 10:48) [facility] Medical History Implantable cardioverter-defibrillator (ICD) at end of battery life Paroxysmal atrial flutter Atrial flutter with rapid ventricular response Vitamin D deficiency HLD (hyperlipidemia) HTN (hypertension) T2DM (type 2 diabetes mellitus) Hyperlipidemia DG (obstructive sleep apnea) Diabetes mellitus Intracardiac thrombus Paroxysmal atrial fibrillation History of congestive heart failure History of cardiomyopathy ICD (implantable cardioverter-defibrillator) in place Surgical History Hx of colonoscopy History of eye surgery Hx of rotator cuff surgery History of permanent cardiac pacemaker placement Family History Father No problems noted. Mother No problems noted. Sister CAD (coronary artery disease) Social History Household Members: None Housing: House Do you presently have visiting nurse or other home services: No Alcohol intake: never Comment: n/a Patient Tobacco Use Status: Current everyday Tobacco user Tobacco use type: Cigarette Cigarettes Per Day: 3 e-Cigarette/Vaping Use: Never Used service: No Office Procedures Cardiac Device Check Cardiac Device Check Details: Remote ICD report generated 05/27/2024. ICD function is adequate [id number] Cardiac Interrogation, implant defibrillator w/interim Procedure code (CPT) selection complete Assessment & Plan Assessment & Plan (1) ICD (implantable cardioverter-defibrillator) in place: Comment: Reviewed note 04/30/23 Code(s): Z95.810 - Presence of automatic (implantable) cardiac defibrillator Category: Medical Plan: See above Coding Level of Care Code Procedure Only Diagnoses ICD (implantable cardioverter-defibrillator) in place Z95.810 CPT Codes Cardiac Device Check - Cardiac Device 13: [id number] Cardiac Interrogation, implant defibrillator w/interim ([id number])
== END ==
PROVIDERS: PCP Family Medicine; Visit Provider Internal Medicine Cardiovascular Disease
DX: Z45.02 Encounter for adjustment and management of automatic implantable cardiac defibrillator (principal)
CPT/HCPCS: 93295

== ENCOUNTER → 2024-08-26 23:59 | Outpatient (BNV) | payer MEDICARE, MEDICAID, SELFPAY ==
--- NOTE | 2024-08-31 14:56 | MHC.OFFVIS ---
Intake Visit Reasons: remote ICD check- [facility] Allergies No Known Allergies Allergy (Verified 08/28/24 09:05) [facility] Medical History Implantable cardioverter-defibrillator (ICD) at end of battery life Paroxysmal atrial flutter Atrial flutter with rapid ventricular response Vitamin D deficiency HLD (hyperlipidemia) HTN (hypertension) T2DM (type 2 diabetes mellitus) Hyperlipidemia DG (obstructive sleep apnea) Diabetes mellitus Intracardiac thrombus Paroxysmal atrial fibrillation History of congestive heart failure History of cardiomyopathy ICD (implantable cardioverter-defibrillator) in place Surgical History Hx of colonoscopy History of eye surgery Hx of rotator cuff surgery History of permanent cardiac pacemaker placement Family History Father No problems noted. Mother No problems noted. Sister CAD (coronary artery disease) Social History Household Members: None Housing: House Do you presently have visiting nurse or other home services: No Alcohol intake: never Comment: n/a Patient Tobacco Use Status: Current everyday Tobacco user Tobacco use type: Cigarette Cigarettes Per Day: 3 e-Cigarette/Vaping Use: Never Used service: No Office Procedures Cardiac Device Check Cardiac Device Check Details: Remote ICD report generated 08/26/2024. ICD function is adequate [id number] Cardiac Interrogation, implant defibrillator w/interim Procedure code (CPT) selection complete Assessment & Plan Assessment & Plan (1) ICD (implantable cardioverter-defibrillator) in place: Comment: Reviewed note 04/30/23 Code(s): Z95.810 - Presence of automatic (implantable) cardiac defibrillator Category: Medical Plan: See above Coding Level of Care Code Procedure Only Diagnoses ICD (implantable cardioverter-defibrillator) in place Z95.810 CPT Codes Cardiac Device Check - Cardiac Device 13: [id number] Cardiac Interrogation, implant defibrillator w/interim ([id number])
== END ==
PROVIDERS: PCP Family Medicine; Visit Provider Internal Medicine Cardiovascular Disease
DX: Z45.02 Encounter for adjustment and management of automatic implantable cardiac defibrillator (principal)
CPT/HCPCS: 93295

== ENCOUNTER → 2024-08-26 23:59 | Outpatient (BNV) | payer MEDICARE, MEDICAID, SELFPAY ==
--- NOTE | 2024-08-31 14:55 | A.OFFVIS_ITS ---
Intake Visit Reasons: Remote HF monitoring- [facility] Allergies No Known Allergies Allergy (Verified 08/28/24 09:05) [facility] Medical History Implantable cardioverter-defibrillator (ICD) at end of battery life Paroxysmal atrial flutter Atrial flutter with rapid ventricular response Vitamin D deficiency HLD (hyperlipidemia) HTN (hypertension) T2DM (type 2 diabetes mellitus) Hyperlipidemia DG (obstructive sleep apnea) Diabetes mellitus Intracardiac thrombus Paroxysmal atrial fibrillation History of congestive heart failure History of cardiomyopathy ICD (implantable cardioverter-defibrillator) in place Surgical History Hx of colonoscopy History of eye surgery Hx of rotator cuff surgery History of permanent cardiac pacemaker placement Family History Father No problems noted. Mother No problems noted. Sister CAD (coronary artery disease) Social History Household Members: None Housing: House Do you presently have visiting nurse or other home services: No Alcohol intake: never Comment: n/a Patient Tobacco Use Status: Current everyday Tobacco user Tobacco use type: Cigarette Cigarettes Per Day: 3 e-Cigarette/Vaping Use: Never Used service: No Office Procedures Cardiac Device Check Cardiac Device Check Details: Remote heart failure report generated 08/26/2024. Heart failure parameters are stable [id number] Cardiac Device Interrogation, cardio physiologic monitor Procedure code (CPT) selection complete Assessment & Plan Assessment & Plan (1) ICD (implantable cardioverter-defibrillator) in place: Comment: Reviewed note 04/30/23 Code(s): Z95.810 - Presence of automatic (implantable) cardiac defibrillator Category: Medical Plan: See above Coding Level of Care Code Procedure Only Diagnoses ICD (implantable cardioverter-defibrillator) in place Z95.810 CPT Codes Cardiac Device Check - Cardiac Device 15: [id number] Cardiac Device Interrogation, cardio physiologic monitor ([id number])
== END ==
PROVIDERS: PCP Family Medicine; Visit Provider Internal Medicine Cardiovascular Disease
DX: Z45.02 Encounter for adjustment and management of automatic implantable cardiac defibrillator (principal)
CPT/HCPCS: 93297

== ENCOUNTER 2024-08-28 08:54 | Outpatient (REF) | payer MEDICARE, MEDICAID, SELFPAY ==
--- OUTSIDE RECORDS SUMMARY | 2024-08-28 10:41 | XMS_ITS | Clinical Summary ---
Author Organization [facility] Address [address] [place] [address] Phone Care Team Providers Care Pan Tank Worker Name Role Phone Rita Foley DO Primary [...] k/uL PVNMA 06/29/2019 us [facility] Conversion LAB [id number] LICITED RESULTS Final Result PVNMA from Last 3 Months or Most Recently Relevant to Health Maintenance Insurance Medicare Medicaid [place] Medicare [place] Care Teams Pan Tank Worker Relationship Specialty Start Date End Date Rita Foley DO PCP - General 1/11/21
[2024-08-28 11:01] LABS: Estimated Average Glucose 189 mg/dL; Hemoglobin A1C 288.1191 umol/L; Hemoglobin A1c % 8.2 % (<6.0); Total Hemoglobin (HGBA1C) 4368.0068 umol/L
== END 2024-08-28 08:55 | disposition home or self-care (01) ==
LOC: HO.LAB 08:54
PROVIDERS: PCP Family Medicine; Visit Provider Nurse Practitioner Family
DX: Z12.11 Encounter for screening for malignant neoplasm of colon (principal); K59.00 Constipation, unspecified; Z83.3 Family history of diabetes mellitus; Z79.01 Long term (current) use of anticoagulants; I51.3 Intracardiac thrombosis, not elsewhere classified; K21.9 Gastro-esophageal reflux disease without esophagitis; Z13.1 Encounter for screening for diabetes mellitus
CPT/HCPCS: 36415; 83036; 84443; 99212

== ENCOUNTER 2024-08-28 08:54 | Outpatient (AMB) | payer MEDICARE, MEDICAID, SELFPAY ==
--- NOTE | 2024-08-28 08:54 | MHC.OFFVIS ---
Vital Signs 08/28/24 08:55 Height 5 ft 8 in Weight 115 lb 6 oz BMI 17.5 BP 108/70 Blood Pressure Location Lt brachial Position Sitting Pulse 74 Pulse Source Monitor Comment Unable to obtain O2 reading per poor perfusion (cardiac hx) Intake Visit Reasons: Positive Cologuard r/s 06/02/24 Intake Note: ESTABLISHED PATIENT for jail anticoagulant mgmt. [place] screening. Positive cologuard on file. Chief Complaint; C/O recent development of reflux sx. Pt denies any additional sx or concerns at this time. Last colo ~ 10 years ago via [facility]. + Cologuard via [facility]. Nurse Emergency Required: Yes Nurse Emergency Services: Nurse Emergency Present Nurse Emergency Name: [facility] Information Interpreted: clinical only Accompanied by: Daughter Allergies No Known Allergies Allergy (Verified 08/28/24 09:05) Medication List - Last Reconciled 08/28/24 by Cuca Millan, GLOVE CUTTER- amitriptyline 10 mg PO BEDTIME apixaban (Eliquis) 5 mg PO BID atorvastatin 10 mg PO BEDTIME bisacodyl (Dulcolax (bisacodyl)) 20 mg (4 x 5 mg) PO ONCE 1 day blood sugar diagnostic (FreeStyle Test strips) As directed two times a day chlorhexidine gluconate 0.12% PO empagliflozin (Jardiance) 25 mg PO QAM furosemide 20 mg See Protocol PO ONCE PRN 90 days gabapentin 300 mg PO TID insulin glargine 20 units subcut DAILY ivabradine (Corlanor) 5 mg PO BID lancets (FreeStyle Lancets) As directed metformin 1,000 mg PO BID multivitamin 1 tab PO DAILY omeprazole 20 mg PO DAILY pen needle, diabetic As directed polyethylene glycol 3350 (Miralax) 238 grams PO ONCE semaglutide (Ozempic) 0.5 mg subcut QWEEK sotalol 80 mg PO BID valsartan 20 mg (1/2 x 40 mg) PO BID HPI HPI Positive Cologuard r/s 06/02/24: Details: LAST VISIT WITH LORRAINE EVLEZ IN APRIL 2023 screening colonoscopy- MG prep Anesthesia consult at least 1 wk before procedure Eliquis typically d/c 2 days before procedure Omnit metformin and jardiance eliot before and 1/ 2 dose insulin only NO DM meds morning of procedure- (5) Anticoagulant long-term use: Code(s): Z79.01 - jail (current) use of anticoagulants Plan: is typically d/c 2 days before procedure- Plan DEFIBRILLATOR-, CPAP, ANTICOAGS screening colonoscopy- MG prep Anesthesia consult at least 1 wk before procedure please Eliquis typically d/c 2 days before procedure Omnit metformin and jardiance eliot before and 1/ 2 dose insulin only NO DM meds morning of procedure- 69 year old? male here today for pre colonoscopy screening.? Patient was sent to us by his PCP.? Patient had a normal colonoscopy in February of 2013. Patient had positive Cologuard. Patient reports occasional constipation uses MiraLax or milk of magnesia as needed. Patient reports acid reflux not taking anything currently. Denies any personal or family history of gastrointestinal disease, colon polyps, or CRC.? Denies history of difficulty with sedation or anesthesia in the past.? Negative for history of sleep apnea.? Denies any history of renal, pulmonary, or hepatic disease.?? No history of infectious? diseases like hepatitis A, B, C, HIV or tuberculosis.? Patient is not on Eliquis. Patient sees cardiology next appointment is in August. Will send message to practice clinician to have patient cleared before going for procedure. [facility] Medical History Implantable cardioverter-defibrillator (ICD) at end of battery life Paroxysmal atrial flutter Atrial flutter with rapid ventricular response Vitamin D deficiency HLD (hyperlipidemia) HTN (hypertension) T2DM (type 2 diabetes mellitus) Hyperlipidemia DG (obstructive sleep apnea) Diabetes mellitus Intracardiac thrombus Paroxysmal atrial fibrillation History of congestive heart failure History of cardiomyopathy ICD (implantable cardioverter-defibrillator) in place Surgical History Hx of colonoscopy History of eye surgery Hx of rotator cuff surgery History of permanent cardiac pacemaker placement Family History Father No problems noted. Mother No problems noted. Sister CAD (coronary artery disease) Social History Household Members: None Housing: House Do you presently have visiting nurse or other home services: No Alcohol intake: never Comment: n/a Patient Tobacco Use Status: Current everyday Tobacco user Tobacco use type: Cigarette Cigarettes Per Day: 3 e-Cigarette/Vaping Use: Never Used service: No Review of Systems Const Denies weight gain and Denies weight loss ENT Reports no additional complaints, Denies dysphagia and Denies odynophagia Card Reports no additional complaints Resp Reports no additional complaints GI Denies abdominal pain, Denies belching, Denies melena, Denies bloating, Denies change in bowel habits, Reports constipation (Occasional), Denies dysphagia, Denies excessive flatus, Denies dyspepsia, Reports heartburn, Denies diarrhea, Denies loose stools, Denies nausea, Denies odynophagia and Denies vomiting Reports no additional complaints Musc Reports no additional complaints Neuro Reports no additional complaints Psych Reports no additional complaints Endo Reports no additional complaints Physical Exam Vital Signs: Last Vital Signs Pulse 74 08/28/24 08:55 BP 108/70 08/28/24 08:55 BMI result Body Mass Index 17.5 Const Nutritional Appearance: underweight Orientation/consciousness: patient oriented x3 Resp Effort & Inspection: normal respiratory effort, able to speak in complete sentences, no tracheal deviation and symmetric chest movement Auscultation: clear to auscultation bilaterally Cardio Rate: regular rate GI Inspection: Yes normal to inspection and No distended Palpation (GI): Soft to palpation, not firm, nontender and No hepatosplenomegaly present Auscultation: normal bowel sounds General: Yes no CVA tenderness Back/Spine/Pelvis Back: no CVA tenderness Skin General skin exam: elasticity normal, turgor normal and dry skin Neuro General: patient oriented x3 Psych Appearance: grossly normal Mental Status: mental status grossly normal Assessment & Plan Assessment & Plan (1) Positive colorectal cancer screening using Cologuard test: Code(s): R19.5 - Other fecal abnormalities (2) Anticoagulant long-term use: Code(s): Z79.01 - adjunct faculty for medical terminology (current) use of anticoagulants Category: Medical (3) Screen for colon cancer: Code(s): Z12.11 - Encounter for screening for malignant neoplasm of colon Category: Medical (4) Intracardiac thrombus: Code(s): I51.3 - Intracardiac thrombosis, not elsewhere classified Category: Medical (5) GERD (gastroesophageal reflux disease): Code(s): K21.9 - Gastro-esophageal reflux disease without esophagitis Plan Patient denies any cardiac or respiratory symptoms. Reports occasional constipation uses MiraLax or milk of magnesia as needed. Patient has defibrillator and sees cardiology next appointment in August. Will send a message to office professionals for patient to be cleared before going for procedure. Patient is on Eliquis.? Denies any issues with anesthesia in the past.? Denies any history of sleep apnea.? No history infectious diseases in the past or present.? No family or personal history of colon cancer or polyps.? Patient denies melena, hematochezia, unintentional weight loss or ribbon like stools.? Discussed at length the pre-procedure,? prep, diet & medications as well as what to expect prior, during and after the procedure.?? Stressed the importance of good bowel prep.? Recommended the use of Vaseline or Calmoseptine OTC & baby wipes with bowel movements to promote comfort.? ?Patient verbalizes understanding and agrees to plan of care.? He was given the opportunity to ask questions and all questions answered.? We will see him after the procedure.? Orders: Orders TSH reflex Free T4 Today K59.00 - Constipation, unspecified Hemoglobin A1c Today Z83.3 - Family history of diabetes mellitus Medications: New bisacodyl (Dulcolax (bisacodyl)) take 4 tabs at noon the day before your colonoscopy 20 mg (4 x 5 mg) PO ONCE 4 tabs 0RF 1 day Z12.11 - Encounter for screening for malignant neoplasm of colon omeprazole 20 mg PO DAILY 30 caps 3RF K21.9 - Gastro-esophageal reflux disease without esophagitis polyethylene glycol 3350 (Miralax) As directed by gastroenterology department at [facility] 238 grams PO ONCE 238 grams 0RF Z12.11 - Encounter for screening for malignant neoplasm of colon Coding Level of Care Code Est Pt Level 3 (98719) Diagnoses Positive colorectal cancer screening using Cologuard test R19.5 Anticoagulant long-term use Z79.01 Screen for colon cancer Z12.11 Intracardiac thrombus I51.3 GERD (gastroesophageal reflux disease) K21.9 Time Spent (min) 40 Comment 30 minutes spent with patient and additional 10 minutes spent reviewing his records
[2024-08-28 08:55] VITALS: BP 108/70; PULSE 74; BMI 17.5
--- OUTSIDE RECORDS SUMMARY | 2024-08-28 09:23 | XMS_ITS | Encounter Summary ---
Author Organization [facility] Address [address] 7t [place] [address] Care Team Providers Care Metal Stamping Machine Operator Name Role Phone Rita Foley DO Primary Care Provider [phone] Nicole Kingston PharmD Unavailable [phone] Encounter Details Date Type Department Care Team (Late st Contact Info) Description 07/13/2022 Orders Only [facility] PEDS [address] [place] [address] Rita Hernandez LPN Social History Tobacco Use Types Packs/Day Years Used Date Smoking Tobacco: Never Assessed Sex and Gender Information Value Date Recorded Sex Assigned at Male 02/26/2022 10:21 AM EDT Legal Sex Male 10:21 AM EDT Gender Identity Male 02/26/2022 10:21 AM EDT Sexual Orientation Straight 02/26/2022 10 :21 AM EDT documented as of this encounter Plan of Treatment Upcoming Encounters Date Type Department Care Team (Late st Contact Info) Description 09/07/2024 10:30 AM EDT Medication Management [facility] MEDICINE [address] [place] [address] PuiaNinoNicole, PharmD [address] [place] [address] documented as of this encounter Visit Diagnoses Not on filedocumented in this encounter Care Teams Metal Stamping Machine Operator Relationship Specialty Start Date End Date Rita Foley DO [address] [place] [address] PCP - General Family Medicine 04/29/18 Nicole Kingston, Avelina [address] [place] [address] Pharmacist Internal Medicine 07/08/23 documented as of this encounter
--- OUTSIDE RECORDS SUMMARY | 2024-08-28 09:23 | XMS_ITS | Clinical Summary ---
Author Organization [facility] Address [address] [place] [address] Phone Care Team Providers Care Calender Machine Operator Helper Name Role Phone Rita Foley DO Primary Care Provider Unava ilable Allergies No known active allergies Medications amitriptyline (ELAVIL) 10 MG tablet Take 1 tablet by mouth at bed time Active apixaban (ELIQUIS) 5 MG tablet Take 1 tablet by mouth 2 (two) times a day Active atorvastatin (LIPITOR) 10 MG tablet Take 1 tablet by mouth 1 (one) time each day Active gabapentin (NEURONTIN) 300 MG capsule Take 1 capsule by mouth 3 (three) times a day Active insulin glargine (Lantus SoloStar) 100 UNIT/ML injection Inject 20 Units under the skin 1 (one) time each day Active Multiple Vitamin (Multivitamin) tablet Take 1 tablet by mouth 1 (one) time each day with breakfast 1 Active sotalol (BETAPACE) 80 MG tablet Take 80 mg by mouth in the morning and 80 mg in the evening. Active Synjardy 12.5-1000 MG tablet Take 1 tablet by mouth every morning and evening 4 Active furosemide (LASIX) 20 MG tablet Take 20 mg by mouth Active pregabalin (LYRICA) 50 MG capsule TAKE 1 CAPSULE BY MOUTH THREE TIMES DAILY IN THE MORNING, EVENING, AND BEDTIME 4 Active nicotine polacrilex (COMMIT) 2 MG lozenge DISSOLVE 1 LOZENGE BY MOUTH EVERY 1 TO 2 HOURS NEEDED FOR CRAVINGS 4 Active Active Problems Problem Noted Date Diagnosed Date Chronic systolic heart failure 02/18/2023 Overview (08/01/2023): Last Assessment & Plan: Denies any symptoms. Continue medications. Follow-up with Dr. Cassidy History of combination inter nal cardiac defibrillator and pacemaker 02/18/2023 Overview (08/01/2023): Last Assessment & Plan: ICD at [facility]. We will request for pulse generator change. We will hold Eliquis for 48 hours before the procedure. Risk and benefits of the procedure were discussed in detail. Hypertension 07/04/2022 Proteinuria 09/28/2020 Renal disorder due to type 2 diabetes mellitus 0 09/28/2020 Family History Medical History Relation Comments Kidney disease Mother CKD Relation Status Comments Mother Social History Tobacco Use Types Packs/Day Years Used Date Smoking Tobacco: Every Day Smokeless Tobacco: Never Tobacco Cessation:Ready to Q uit: No; Counseling Given: No Alcohol Use Standard Drinks/Week Comments Never 0 (1 standard drink = 0.6 oz pur e alcohol) Sex and Gender Information Value Date Recorded Sex Assigned at Not on file Legal Sex Male 4:56 PM EST Gender Identity Not on file Sexual Orientation Not on file Last Filed Vital Signs Vital Sign Reading Time Taken Comments Blood Pressure 110/70 08/01/2023 1:21 PM EDT Pulse 115 08/01/2023 1:21 PM EDT Temperature - - Respiratory Rate - - Oxygen Saturation 96% 07/04/2022 1:18 PM EST Inhaled Oxygen Concentration - - Weight 56.7 kg (125 lb) 08/01/2023 1:21 PM EDT Height - - Body Mass Index - - Plan of Treatment Health Maintenance Due Date Last Done Comments Colorectal Cancer Screening: Annual FOBT 2002 Colorectal Cancer Screening: Colonoscopy 2002 Colorectal Cancer Screening: Sigmoidoscopy 2002 Diabetes: Ophthalmology Exam 05/29/2020 Diabetes: Pedal Pulse Checked 05/29/2020 Diabetes: Sensory Foot Exam 05/29/2020 Diabetes: Visual Foot Exam 05/29/2020 Diabetes: Hemoglobin A1C 02/18/2024 11/18/2023, 030 05/2019 Hepatitis B Vaccine Aged Out 05/19/2014, 07/08/2013, 06/10/2013 No longer eligible based on patient's age to complete this topic Pneumococcal Vaccine: 50+ Years Completed 04/24/2019, 03/07/2018, 11/15/2011 Pneumococcal Vaccine: Peds (0 to 5 Years) and At-Risk Patients (6 to 49 Years) Discontinued 04/24/2019, 03/07/2018, 11/15/2011 Influenza Vaccine Completed 01/27/2024, , 02/10/2014, Additional history exists Procedures Procedure Name Priority Date/Time Associated Diagnosis Comments BLOOD PANEL (HC) Routine 06/29/2019 12:0 0 AM EST from Last 3 Months or Most Recently Relevant to Health Maintenance Results * (ABNORMAL) Blood Panel (06/29/2019 12:00 AM EST) Creatinine 0.83 0.70 - 1.30 mg/dl [facility] Cholesterol 99 <200 mg/dl [facility] HDL 39(L) >40 mg/dl [facility] Hgb 16.7(H) 13.0 - 16.5 g/dl [facility] Hematocrit 51.4(H) 38 - 50 % [facility] Potassium 5.3(H) 3.5 - 5.1 mmol/L [facility] BUN 28(H) 9 - 20 mg/dl [facility] Calcium 9.6 8.4 - 10.2 mg/dl [facility] Triglycerides 71 <150 mg/dl [facility] Carbon Dioxide (CO2) 30 22 - 30 mmol/L [facility] Hemoglobin A1C 10.6(H) <5 % [facility] Sodium 139 137 - 145 mmol/L [facility] eGFR Non- >60 >60 ml/min [facility] LDL,Direct 46 <130 mg/dl [facility] Platelets 152 140 - 440 k/uL [facility] 06/29/2019 us [facility] [id number] LICITED RESULTS Final Result [facility] from Last 3 Months or Most Recently Relevant to Health Maintenance Insurance Medicare Medicaid [place] Medicare Medicaid [place] Care Teams Calender Machine Operator Helper Relationship Specialty Start Date End Date Rita Foley DO PCP - General 1/11/21
--- OUTSIDE RECORDS SUMMARY | 2024-08-28 09:23 | XMS_ITS | Encounter Summary ---
Author Organization [employer] Address [address] 7[address] [place] [address] Care Team Providers Care Biomedical Technician Name Role Phone Rita Foley DO Primary Care Provider [phone] Nicole Kingston PharmD Unavailable Reason for Visit * Reason Comments Med Refill Encounter Details Date Type Department Care Team ([facility] st Contact Info) Description 08/15/2024 Refill [facility] MED & PEDS [address] [place], [place] [phone] Rita Foley DO [address] [place] [address] Other chronic pain Social History Tobacco Use Types Packs/Day Years Used Date Smoking Tobacco: Every Day Cigarettes Passive Smoke Exposure: Current Alcohol Use Standard Drinks/Week Comments Never 0 (1 standard drink = 0.6 oz pur e alcohol) Depression Answer Date Recorded Patient Health Questionnaire-9 Score 4 09/09/2023 Patient Health Questionnaire-9 Score 4 09/09/2023 Last PHQ-9: Questionnaire Data Not on file 0 09/09/2023 Housing Stability Answer Date Recorded What is your housing situation today? I have kat sim 12/17/[address] you li ve. Do you have problems with any of the following? None of the above 12/17/2023 Food Insecurity Answer Date Recorded Within the past 12 months, y ou worried that your food would run out before you got money to buy more: Never True 12/17/2023 Within the past 12 months,th e food you bought just didn't last and you didn't have enough money to get more: Never True Transportation Answer Date Recorded In the past 12 months, has l ack of transportation kept you from medical appts, meetings, work or from getting things needed for daily living? No 12/17/2023 Utilities Answer Date Recorded In the past 12 months, has t he electric, gas, oil or water company threatened to shut off services in your home? No 12/17/2023 Depression Answer Date Recorded Patient Health Questionnaire-2 Score 0 09/09/2023 Internet Access Answer Date Recorded Internet Access Q1 Yes 12/30/2023 Internet Access Q2 Not on file 12/30/2023 Sex and Gender Information Value Date Recorded Sex Assigned at Male 02/26/2022 10:21 AM EDT Legal Sex Male 10:21 AM EDT Gender Identity Male 02/26/2022 10:21 AM EDT Sexual Orientation Straight 02/26/2022 10 :21 AM EDT documented as of this encounter Plan of Treatment Upcoming Encounters Date Type Department Care Team (Late st Contact Info) Description 09/07/2024 10:30 AM EDT Medication Management [facility] MEDICINE [address] [place] [address] Puia, Nicole, PharmD [address] [place] [address] documented as of this encounter Goals Goal Patient Goal Type Associated Problems Recent Progress Patient-Stated? Author Smoking cessation General No Puia, Nicole, PharmD Hemoglobin A1c < 7.5 Result Component 8.2( 5 2:16 PM EDT) No Puia, Nicole, PharmD Record your blood sugar as directed Result Component No Puia, Nicole, PharmD documented as of this encounter Visit Diagnoses Diagnosis Other chronic pain documented in this encounter Additional Health Concerns Assessment Noted Time PHQ-9 Depression Total Score: 4 09/09/19 24 9:56 AM EDT documented as of this encounter Care Teams Biomedical Technician Relationship Specialty Start Date End Date Rita Foley DO [address] [place] [address] PCP - General Family Medicine 04/29/18 Puia, Nicole, PharmD [address] [place] [phone] Pharmacist Internal Medicine 07/08/23 documented as of this encounter
--- OUTSIDE RECORDS SUMMARY | 2024-08-28 09:23 | XMS_ITS | Encounter Summary ---
Author Organization [facility] Address [address] 7[address] [place] [address] Care Team Providers Care Call Or Contact Centre Operator Name Role Phone Rita Foley DO Primary Care Provider [phone] Nicole Kingston PharmD Unavailable Encounter Details Date Type Department Care Team (Late st Contact Info) Description 08/24/2024 Refill [facility] MEDICINE [address] [place], [place] [phone] Rita Foley DO [address] [place] [address] Type 2 diabetes mellitus with diabetic nephropathy, with long-term current use of insulin ([facility]) (Primary Dx) Social History Tobacco Use Types Packs/Day Years [...] your housing situation today? I have kat chiquis 12/17/[address] you li [...] AM EDT documented as of this encounter Miscellaneous Notes * Telephone Encounter - Nicole Kingston PharmD - 08/24/2024 11:45 AM EDT New RX needed per Jessica in pharmacy documented in this encounter Plan of Treatment Upcoming Encounters Date Type Department Care Team (Late st Contact Info) Description 09/07/2024 10:30 AM EDT Medication Management [facility] MEDICINE [address] [place] [address] Nicole Kingston PharmD [address] [place] [address] documented as of this encounter Goals Goal Patient Goal Type Associated Problems Recent Progress Patient-Stated? Author Smoking cessation General No Nicole Kingston PharmD Hemoglobin A1c < 7.5 Result Component 8.2( 2:16 PM EDT) No Nicole Kingston PharmLauren Record your blood sugar as directed Result Component No Nicole Kingston PharmLauren documented as of this encounter Visit Diagnoses Diagnosis Type 2 diabetes mellitus with diabetic nephropathy, with long-term current use of insulin ([facility])- Primary documented in this encounter Additional Health Concerns Assessment Noted Time PHQ-9 Depression Total Score: 4 09/09/19 24 9:56 AM EDT documented as of this encounter Care Teams Call Or Contact Centre Operator Relationship Specialty Start Date End Date Rita Foley DO [address] [place] [address] PCP - General Family Medicine 04/29/18 Nicole Kingston PharmD [address] [place] [address] Pharmacist Internal Medicine 07/08/23 documented as of this encounter
--- OUTSIDE RECORDS SUMMARY | 2024-08-28 09:23 | XMS_ITS | Encounter Summary ---
Author Organization [facility] Address [address] [facility] 7t [place] [address] Care Team Providers Care Rn Sane Name Role Phone Rita Foley DO Primary Care Provider [phone] Nicole Kingston PharmD Unavailable Reason for Visit * Reason Comments Med Refill Encounter Details Date Type Department Care Team ([facility] st Contact Info) Description 09/06/[address] [facility] MEDICINE [address] [place] [address] Rita Foley DO [address] [place] [address] Social History Tobacco Use Types Packs/Day Years [...] housing situation today? I have kat sim 02/11/[address] you li ve. Do you have problems with any of the following? I am not sure 02/11/2023 Food Insecurity Answer Date Recorded Within the past 12 months, y ou worried that your food would run out before you got money to buy more: Never True 02/11/2023 Within the past 12 months,th e food you bought just didn't last and you didn't have enough money to get more: Never True Transportation Answer Date Recorded In the past 12 months, has l ack of transportation kept you from medical appts, meetings, work or from getting things needed for daily living? No 02/11/2023 Utilities Answer Date Recorded In the past 12 months, has t he electric, gas, oil or water company threatened to shut off services in your home? No 02/11/2023 Depression Answer Date Recorded Patient Health Questionnaire-2 Score 0 09/09/2023 Sex and Gender Information Value Date Recorded Sex Assigned at Male 02/26/2022 10:21 AM EDT Legal Sex Male 10:21 AM EDT Gender Identity Male 02/26/2022 10:21 AM EDT Sexual Orientation Straight 02/26/2022 10 :21 AM EDT documented as of this encounter Plan of Treatment Upcoming Encounters Date Type Department Care Team (Late st Contact Info) Description 09/07/2024 10:30 AM EDT Medication Management [facility] MEDICINE [address] [place] [phone] Puia, Nicole, PharmD [address] [place] [phone] documented as of this encounter Goals Goal Patient Goal Type Associated Problems Recent Progress Patient-Stated? Author Smoking cessation General No Puia, Nicole, PharmD Hemoglobin A1c < 7.5 Result Component 8.2( 5 2:16 PM EDT) No Puia, Nicole, PharmD Record your blood sugar as directed Result Component No Puia, Nicole, PharmD documented as of this encounter Visit Diagnoses Not on filedocumented in this encounter Additional Health Concerns Assessment Noted Time PHQ-9 Depression Total Score: 0 03/26/20 23 11:10 AM EST documented as of this encounter Care Teams Rn Sane Relationship Specialty Start Date End Date Rita Foley DO [address] [place] [phone] PCP - General Family Medicine 04/29/18 Puia, Nicole, PharmD [address] [place] [phone] Pharmacist Internal Medicine 07/08/23 documented as of this encounter
--- OUTSIDE RECORDS SUMMARY | 2024-08-28 09:23 | XMS_ITS | Encounter Summary ---
Author Organization [facility] Address [address] [facility] 7t [place] [address] Care Team Providers Care Gel Coater Name Role Phone Rita Foley DO Primary Care Provider Nicole Kingston PharmD Unavailable Encounter Details Date Type Department Care Team (Late st Contact Info) Description 06/06/2022 Orders Only [facility] MED & PEDS [address] [place] [address] Rita Hernandez LPN Social History Tobacco Use [...] Description 09/07/2024 10:30 AM EDT Medication Management [facility] MEDICINE [address] [place] [address] PuiaNinoNicole, PharmD [address] [place] [address] documented as of this encounter Visit Diagnoses Not on filedocumented in this encounter Care Teams Gel Coater Relationship Specialty Start Date End Date Rita Folye DO [address] [place] [address] PCP - General Family Medicine 04/29/18 Nicole Kingston, Avelina [address] [place] [address] Pharmacist Internal Medicine 07/08/23 documented as of this encounter
--- OUTSIDE RECORDS SUMMARY | 2024-08-28 09:23 | XMS_ITS | Encounter Summary ---
Author Organization [facility] Address [address] [place] [address] 7t [place] [address] Care Team Providers Care Cook Barbecue Name Role Phone Rita Foley DO Primary Care Provider [phone] Nicole Kingston PharmD Unavailable Encounter Details Date Type Department Care Team (Late st Contact Info) Description 05/15/[address] [facility] MEDICINE [address] [place] [phone] Shanice Kang LPN Social History Tobacco Use Types Packs/Day [...] 09/07/2024 10:30 AM EDT Medication Management [facility] [address] [place] [phone] Puia, Nicole, PharmD [address] [place] [address] documented as of this encounter Visit Diagnoses Not on filedocumented in this encounter Care Teams Cook Barbecue Relationship Specialty Start Date End Date Rita Foley DO [address] [place] [id number] PCP - General Family Medicine 04/29/18 Nicole Kingston, PharmD [address] [place] [phone] Pharmacist Internal Medicine 07/08/23 documented as of this encounter
--- OUTSIDE RECORDS SUMMARY | 2024-08-28 09:23 | XMS_ITS | Encounter Summary ---
Author Organization [employer] Address [address] [place] [address] Care Team Providers Care Parts Back Counter Man Name Role Phone Rita Foley DO Primary Care Provider [phone] Nicole Kingston PharmD Unavailable [phone] Reason for Visit * Reason Comments Med Refill Encounter Details Date Type Department Care Team ([facility] st Contact Info) Description 03/26/2023 Refill [facility] CHC MED & PEDS [address] [place], [place] [phone] Rita Foley DO [address] [place] [address] Type 2 diabetes mellitus with other specified complication, with long-term current use of insulin ([facility]) Social History Tobacco Use Types Packs/Day Years Used Date Smoking Tobacco: Every Day Cigarettes Passive Smoke Exposure: Current Alcohol Use Standard Drinks/Week Comments Never 0 (1 standard drink = 0.6 oz pur e alcohol) Depression Answer Date Recorded Patient Health Questionnaire-9 Score 0 03/26/2023 Patient Health Questionnaire-9 Score 0 03/26/2023 Last PHQ-9: Questionnaire Data Not on file 1 05/26/2022 Housing Stability Answer Date Recorded What is [...] Date Recorded Patient Health Questionnaire-2 Score 0 03/26/2023 Sex and Gender Information Value Date Recorded Sex Assigned at Male 02/26/2022 10:21 AM EDT Legal Sex Male 10:21 AM EDT Gender Identity Male 02/26/2022 10:21 AM EDT Sexual Orientation Straight 02/26/2022 10 :21 AM EDT documented as of this encounter Plan of Treatment Upcoming Encounters Date Type Department Care Team (Late st Contact Info) Description 09/07/2024 10:30 AM EDT Medication Management [facility] MEDICINE [address] [place] [address] Nicole Kingston PharmD [address] [place] [address] documented as of this encounter Visit Diagnoses Diagnosis Type 2 diabetes mellitus with other specified complication, with long-term current use of insulin ([facility]) documented in this encounter Additional Health Concerns Assessment Noted Time PHQ-9 Depression Total Score: 0 03/26/20 23 11:10 AM EST documented as of this encounter Care Teams Parts Back Counter Man Relationship Specialty Start Date End Date Rita Foley DO [address] [place] [phone] PCP - General Family Medicine 04/29/18 Nicole Kingston PharmD [address] [place] [phone] Pharmacist Internal Medicine 07/08/23 documented as of this encounter
--- OUTSIDE RECORDS SUMMARY | 2024-08-28 09:23 | XMS_ITS | Encounter Summary ---
Author Organization [employer] Address [address] 7[address] [place] [address] Care Team Providers Care Agriculture Extension Specialist Name Role Phone Rita Foley DO Primary Care Provider Nicole Kingston PharmD Unavailable [phone] Reason for Visit * Reason Comments Med Refill Encounter Details Date Type Department Care Team ([facility] st Contact Info) Description 09/12/2023 Refill [facility] MED & PEDS [address] [place], [place] [phone] Rita Foley DO [address] [place] [address] Type 2 diabetes mellitus with other specified complication, with long-term current use of insulin ([facility]) Social History Tobacco Use Types Packs/Day Years [...] Description 09/07/2024 10:30 AM EDT Medication Management [facility] MEDICINE [address] [place] [address] Puia, Nicole, PharmD [address] [place] [address] documented as of this encounter Goals Goal [...] complication, with long-term current use of insulin ([facility]) documented in this encounter Additional Health Concerns Assessment Noted Time PHQ-9 Depression Total Score: 4 09/09/19 24 9:56 AM EDT documented as of this encounter Care Teams Agriculture Extension Specialist Relationship Specialty Start Date End Date Rita Foley DO [address] [place] [address] PCP - General Family Medicine 04/29/18 Nicole Kingston, SylviaD [address] [place] [phone] Pharmacist Internal Medicine 07/08/23 documented as of this encounter
--- OUTSIDE RECORDS SUMMARY | 2024-08-28 09:23 | XMS_ITS | Clinical Summary ---
Author Organization [facility] Address [address] [place] [address] Care Team Providers Care Speed Reading Teacher Name Role Phone Og Rita Primary Care Provider Nicole Kingston PharmD Unavailable Allergies No known active allergies Medications * This document contains information received from the source organization and may not represent a complete record from that organization. Eliquis 5 MG tablet TAKE 1 TABLET BY MOUTH TWICE DAILY IN THE MORNING AND IN THE EVENING 08/21/19 23 Active TRUEplus Lancets 33G miscIndications: Type 2 diabetes mellitus with unspecified complications ([facility]) TEST BLOOD SUGAR 3 TIMES A DAY 100 each 11 10/03/19 23 Active sotalol (Betapace) 80 MG tablet Take 1 tablet by mouth 2 times daily. 11/08/19 23 Active valsartan (Diovan) 40 MG tablet Take 0.5 tablets by mouth 2 times daily. Active furosemide (Lasix) 20 MG tablet Take 20 mg by mouth. 3 times weekly (Mon, Wed, Fri) 03/25/20 23 Active Continuous Blood Gluc Fire Engine Pump Operator (FreeStyle Solange 2 Sunny Side) deviceIndication s:Type 2 diabetes mellitus with diabetic nephropathy, with long-term current use of insulin ([facility]) Use to scan sensor at least every 8 hours, as directed, for CGM 1 each 07/08/19 24 Active glucose blood (FreeStyle Precision Eleno Test) test stripIndications :Type 2 diabetes mellitus with diabetic nephropathy, with long-term current use of insulin ([facility]) Use to test blood sugar up to 3 times daily, as directed 100 each 5 07/08/19 24 Active insulin degludec (Tresiba FlexTouch) 100 UNIT/ML injectionIndicat ions:Type 2 diabetes mellitus with diabetic nephropathy, with long-term current use of insulin (CMS/HCC) Inject 12 units subQ once daily in the AM 15 mL 5 11/26/19 24 Active Corlanor 5 MG tablet Take 5 mg by mouth 2 times daily. 03/24/20 24 Active Synjardy 12.5-1000 MGIndications:Ty pe 2 diabetes mellitus with diabetic nephropathy, with long-term current use of insulin (CMS/HCC) TAKE 1 TABLET BY MOUTH TWICE DAILY IN THE MORNING AND IN THE EVENING 60 tablet 06/18/19 25 Active atorvastatin (Lipitor) 10 MG tablet TAKE 1 TABLET BY MOUTH EVERY EVENING 90 tablet 06/24/19 25 Active Multiple Vitamin (Multivitamin) tabletIndication s:Anemia, unspecified type TAKE 1 TABLET BY MOUTH EVERY MORNING 90 tablet 06/24/19 25 Active insulin aspart FlexPen (NovoLOG) 100 UNIT/ML penIndications:T ype 2 diabetes mellitus with diabetic nephropathy, with long-term current use of insulin (CMS/HCC) Inject 5 Units under the skin with evening meal. 15 mL 08/07/19 25 Active insulin pen needle (B-D UF III MINI PEN NEEDLES) 31G x 5 mm misc Use twice daily as directed for insulin injection. 100 each 08/07/19 25 Active semaglutide (Ozempic, 1 MG/DOSE,) 4 MG/3ML solution pen-injectorIndi cations:Type 2 Diabetes Mellitus Inject 1 mg under the skin 1 (one) time per week. 3 mL 08/08/19 25 Active pregabalin (Lyrica) 50 MG capsule TAKE 1 CAPSULE BY MOUTH THREE TIMES DAILY IN THE MORNING, EVENING, AND BEDTIME 90 capsule 08/22/19 25 Active amitriptyline (Elavil) 10 MG tabletIndication s:Other chronic pain TAKE 1 TABLET BY MOUTH AT BEDTIME 90 tablet 08/22/19 25 Active Continuous Glucose Sensor (FreeStyle Solange 2 Plus Sensor) miscIndications: Type 2 diabetes mellitus with diabetic nephropathy, with long-term current use of insulin (CMS/HCC) 1 each every 8 (eight) hours. Apply one sensor every 15 days as directed for CGM. Scan every 8 hours at minimum to capture 24 hr BG data. 2 each 08/25/19 Active semaglutide (Ozempic, 1 MG/DOSE,) 4 MG/3ML solution pen-injectorIndi cations:Type 2 Diabetes Mellitus Inject 1 mg under the skin 1 (one) time per week. 3 mL 10/28/19 025 Discontinued(Re order (will not trigger notification to Pharmacy)) amitriptyline (Elavil) 10 MG tabletIndication s:Other chronic pain TAKE 1 TABLET BY MOUTH AT BEDTIME 90 tablet 1 02/26/20 24 025 Discontinued pregabalin (Lyrica) 50 MG capsule TAKE 1 CAPSULE BY MOUTH THREE TIMES DAILY IN THE MORNING, EVENING, AND BEDTIME 90 capsule 02/26/20 025 Discontinued B-D UF III MINI PEN NEEDLES 31G X 5 MM misc USE ONCE DAILY WITH INSULIN 100 each 06/25/19 025 Discontinued(Re order (will not trigger notification to Pharmacy)) Continuous Glucose Sensor (FreeStyle Solange 2 Sensor) miscIndications: Type 2 diabetes mellitus with diabetic nephropathy, with long-term current use of insulin ([facility]) USE DIRECTED CHANGE EVERY 14 DAYS 2 each 06/25/19 025 Discontinued(Al ternate therapy) Continuous Glucose Sensor (FreeStyle Solange 2 Plus Sensor) misc 1 each every 8 (eight) hours. Apply one sensor every 15 days as directed for CGM. Scan every 8 hours at minimum to capture 24 hr BG data. 2 each 08/07/19 025 Discontinued(Re order (will not trigger notification to Pharmacy)) Active Problems Problem Noted Date Diagnosed Date Complete edentulism 10/14/2023 History of tooth extraction 09/12/2023 Unspecified psychosis not du e to a substance or known physiological condition 04/02/2023 Periodontal disease 04/01/2023 History of cardiomyopathy 11/26/2022 Vitamin D deficiency 11/26/2022 Paroxysmal atrial fibrillation 08/24/2022 ICD (implantable cardioverter-defibrillator) in place 08/24/2022 Peripheral neuropathy 08/24/2022 Status post rotator cuff repair 08/24/2022 Degenerative disc disease, lumbar 08/24/2022 Lung nodule 08/24/2022 Chronic alcoholism in remission 02/07/2015 Chronic obstructive lung disease 02/07/2015 Chronic systolic heart failure 02/07/2015 Diabetic retinopathy 02/07/2015 Hyperlipidemia 02/07/2015 Essential hypertension 02/07/2015 DG (obstructive sleep apnea) 02/07/2015 Osteoarthritis 02/07/2015 Chronic shoulder pain 02/07/2015 Type 2 diabetes mellitus 02/07/2015 Resolved Problems Problem Noted Date Diagnosed Date Resolved Date Decompensated heart failure 11/26/2022 11/26/2022 History of congestive heart failure 11/26/2022 11/26/2022 Paroxysmal atrial flutter 11/26/2022 Pneumonia 11/26/2022 11/26/2022 Weakness 11/26/2022 11/26/2022 Hyperkalemia 08/23/2022 11/26/2022 Proteinuria 09/28/2020 11/26/2022 Intracardiac thrombus 02/07/20152022 Encounters Date Type Department Care Team Description 08/24/2024 Refill [facility] [address] [place] [address] Rita Foley, Type 2 diabetes mellitus with diabetic nephropathy, with long-term current use of insulin (CMS/HCC) (Primary Dx) 08/20/2024 Refill [facility] [address] [place] [address] Rita Foley, Other chronic pain 08/15/2024 Refill [facility] [address] [place] [address] Rita Foley, DO Other chronic pain 08/14/2024 Telephone [facility] [address] [place] [address] Alivia Luciano RN CGM PA 08/07/2024 10:15 AM EDT Office Visit [facility] [address] [place] [address] [place] [facility] Type 2 diabetes mellitus with diabetic nephropathy, with long-term current use of insulin (CMS/HCC); Dietary counseling; Exercise counseling 08/07/2024 Travel 08/06/2024 Telephone [facility] [address] [place] [address] Rita Foley DO Results (Diabetic Eye Exam Results.) 08/06/2024 Travel 08/06/2024 Telephone [facility] [place] [address] Rita Foley DO chart prep 07/31/2024 Patient Outreach [facility] [address] [place] [address] Rita Foley DO Pre-visit Planning (SDOH negative, Tobacco screening negative.) 07/29/2024 Telephone [facility] [place] [address] Rita Foley DO Paperwork/Forms 07/27/2024 Telephone [facility] [place] [address] Alivia Luciano, RN Appointment Request 07/10/2024 Population Health Risk Score [facility] () Department [address] [place] [id number] Provider, Population Health Generic 07/06/2024 Telephone [facility] [place] [address] Rita Foley DO 06/24/2024 Refill [facility] [place] [address] Rita Foley DO Type 2 diabetes mellitus with diabetic nephropathy, with long-term current use of insulin ([facility]) 06/22/2024 Refill [facility] [place] [address] Rita Foley DO Anemia, unspecified type 06/18/2024 Refill [facility] [place] [address] Nicole Kingston PharmD Type 2 diabetes mellitus with diabetic nephropathy, with long-term current use of insulin ([facility]) 06/16/2024 Telephone [facility] [place] [address] Rita Foley DO Recall Letter (Recall Letter sent 06/16/24.) from Last 3 Months Immunizations Name Administration Dates Next Due Hep B, adult 05/19/2014,07/08/2013,06/10/2013 Influenza High-dose Quadriva lent Preservative Free 01/12/2022,02/03/2021 Influenza injectable quadriv alent preservative free 03/09/2020 Influenza, High Dose Seasona l, Preservative Free 01/27/2024 Influenza, IIV3, injectable 02/15/2014 Influenza, Split (incl. jessica fied surface antigen) 02/10/2014,03/09/2013 Meningococcal MPSV4 01/29/2012 Moderna Covid-19 Vaccine 12+ 09/22/2021, 04/24/2021,10/17/2020,09/22 Pfizer Covid-19 Vaccine 12+ 01/27/2024, Pfizer Covid-19 Vaccine 12+ Bivalent 08/24/2022 Pneumococcal Conjugate PCV 13 03/07/2018 Pneumococcal Conjugate PCV 20 08/06/2024 Pneumococcal Polysaccharide PPSV23 04/24/2019, RSV Bivalent 09/24/2023 TD (adult), 2 Lf tetanus tox oid, preservative free, adsorbed 01/12/2022 Tdap 12/11/2011 Zoster, Recombinant 02/22/2020,12/21/2019 Social History Tobacco Use Types Packs/Day Years Used Date Smoking Tobacco: Every Day Cigarettes Passive Smoke Exposure: Current Tobacco Cessation:Ready to Q uit: Not Asked; Counseling Given: Not Answered Alcohol Use Standard Drinks/Week Comments Never 0 [...] Orientation Straight 02/26/2022 10 :21 AM EDT Last Filed Vital Signs Vital Sign Reading Time Taken Comments Blood Pressure 121/78 08/07/2024 10:18 AM EDT Pulse 78 08/07/2024 10:18 AM EDT Temperature 37.1 ??C (98.8 ??F) 08/07/2024 10:18 AM E DT Respiratory Rate 20 08/07/2024 10:18 AM EDT Oxygen Saturation 100% 03/26/2023 11:09 AM EST Inhaled Oxygen Concentration - - Weight 53.8 kg (118 lb 9.6 oz) 08/07/2024 10:18 AM EDT Height 182.9 cm (6') 08/07/2024 10:18 AM EDT Body Mass Index 16.09 08/07/2024 10:18 AM EDT Plan of Treatment Upcoming Encounters Date Type Department Care Team (Late st Contact Info) Description 09/07/2024 10:30 AM EDT Medication Management [facility] [address] [place], [place] [phone] Nicole Kingston, PharmD [address] [place], [place] [phone] Health Maintenance Due Date Last Done Comments Anal Pap 1953 CT Colonography 1953 Colonoscopy 1953 Colorectal Cancer Screening 1953 Dental Oral Exam 1953 Dental Prophylaxis 1953 Dental X-Ray: Bitewings 1953 FIT DNA/Cologuard 1953 FIT 1953 FOBT 1953 Sigmoidoscopy 1953 Eye Exam 1963 Alcohol/Substance Use Screening 1965 Hepatitis A Vaccines (1 of 2 - Risk 2-dose series) 02/06/1972 Depression Screening 09/08/2024 09/09/2023, 09/09/19 24 Diabetes: Hemoglobin A1C 11/05/2024 025, 02/11/2024, 11/18/2023, Additional history exists Lipid Panel 11/17/2024 11/18/2023, 07/29, 01/03/2022, Additional history exists SDOH Screening 07/31/2025 07/31/2024 Diabetes: Foot Exam 08/07/2025 08/07/2024, 08/07/2024, 08/07/2024, Additional history exists Tobacco Screening 08/09/2025 08/09/2024 Dental X-Ray: Full Mouth 04/02/2026 04/01/2023 DTaP/Tdap/Td Vaccines (3 - Td or Tdap) 01/13/2032 01/12/2022, 12/11/2011 Meningococcal Vaccine Aged Out 01/29/2012 No flaco mayda eligible based on patient's age to complete this topic Hepatitis B Vaccines Completed 05/19/2014, 07/08/2013, 06/10/2013 Zoster Vaccines Completed 02/22/2020, 12/21/2019 RSV Patients and Patients Aged 60 years or older Completed 09/24/2023 Hepatitis C Screening Completed 11/18/2023, 021 COVID-19 Vaccine Completed 01/27/2024, , 08/24/2022, Additional history exists Influenza Vaccine Completed 01/27/2024, , 02/03/2021, Additional history exists Pneumococcal Vaccine: 50+ Years Completed 08/06/2024, 04/24/2019, 03/07/2018, Additional history exists HIB Vaccines Aged Out No longer eligi ble based on patient's age to complete this topic HPV Vaccines Aged Out No longer eligi ble based on patient's age to complete this topic IPV Vaccines Aged Out No longer eligi ble based on patient's age to complete this topic RSV under 20 months Aged Out No longe r eligible based on patient's age to complete this topic Rotavirus Vaccines Aged Out No longer eligible based on patient's age to complete this topic Goals Goal Patient Goal Type Associated Problems Recent Progress Patient-Stated? Author Smoking cessation General No Nicole Kingston PharmD Hemoglobin A1c < 7.5 Result Component 8.2( 2:16 PM EDT) No Nicole Kingston PharmD Record your blood sugar as directed Result Component No Nicole Kingston PharmD Procedures Procedure Name Priority Date/Time Associated Diagnosis Comments POCT GLYCATED HEMOGLOBIN, TOTAL Routine 08/06/2024 2:16 PM EDT Type 2 diabetes mellitus with diabetic nephropathy, with long-term current use of insulin (CMS/HCC) HEPATITIS C AB W/REFL TO HCV RNA, QN, PCR Routine 11/18/2023 9:10 AM EDT Type 2 diabetes mellitus with diabetic nephropathy, with long-term current use of insulin (CMS/HCC) Essential hypertension Other hyperlipidemia Paroxysmal atrial fibrillation (CMS/HCC) Chronic systolic heart failure (CMS/HCC) Chronic obstructive pulmonary disease, unspecified COPD type (CMS/HCC) Lung nodule Peripheral polyneuropathy Visual hallucinations Healthcare maintenance LIPID PANEL, STANDARD Routine 11/18/2023 9:10 AM EDT Type 2 diabetes mellitus with diabetic nephropathy, with long-term current use of insulin (CMS/HCC) Essential hypertension Other hyperlipidemia Paroxysmal atrial fibrillation (CMS/HCC) Chronic systolic heart failure (CMS/HCC) Chronic obstructive pulmonary disease, unspecified COPD type (CMS/HCC) Lung nodule Peripheral polyneuropathy Visual hallucinations Healthcare maintenance PANORAMIC RADIOGRAPHIC IMAGE Routine 04/01/2023 11:30 AM EST from Last 3 Months or Most Recently Relevant to Health Maintenance Results * (ABNORMAL) POCT HGB A1C (08/06/2024 2:16 PM EDT) Hemoglobin A1C 8.2(A) 4.0 - 6.0 % QC Media Lot # [id number] Blood 08/06/2024 2:16 PM EDT Rita Foley DO POINT OF CARE TEST ENTER/BRYANNA T ORDERABLES Final Result * Hepatitis C Antibody with Reflex to HCV, RNA, Quantitative, Real-Time PCR (11/18/2023 9:10 AM EDT) Pathologist [facility] Hepatitis C Antibody Nonreactive Nonreactive [facility] Comment:Antibodies to HCV no t detected; does not exclude early acuteHCV infection. Blood Venous blood specimen / Unknown 11/18/2023 9:10 AM EDT 11/18/2023 11:11 AM EDT Rita Foley DO LAB BLOOD ORDERABLES Final R esult [facility] [address] [place] [phone] * (ABNORMAL) Lipid Panel, Standard (11/18/2023 9:10 AM EDT) Pathologist [facility] Triglycerides 93 <150 mg/dL [facility] Comment:Desirable Triglyceri de: less than 150 mg/dLBorderline High Triglyceride 150-199 mg/dLHigh Triglyceride: 200-499 mg/dLVery High Triglyceride: greater than or equal to 5OO mg/dL Cholesterol 96 <200 mg/dL [facility] Comment:Desirable Cholestero l: less than 200 mg/dLBorderline High Cholesterol: 200-239 mg/dLHigh Cholesterol: greater than 239 mg/dL LDL Cholesterol Calculated 44 <100 mg/dL [facility] Comment:Desirable LDL: less than 100 mg/dLNear Optimal/Above Optimal LDL: 110- 129 mg/dLBorderline High LDL: 130-159 mg/dLHigh LDL: 160-189 mg/dLVery High LDL: greater than or equal to 190 mg/dL HDL Cholesterol 34(L) >40 mg/dL [facility] Comment:Desirable HDL: great er than 40 mg/dL Note: This HDL assay may give artificially low results in patients with liver disease. Blood Venous blood specimen / Unknown 11/18/2023 9:10 AM EDT 11/18/2023 11:11 AM EDT Rita Foley DO LAB BLOOD ORDERABLES Final R esult [facility] [address] [place] [address] [phone] from Last 3 Months or Most Recently Relevant to Health Maintenance Insurance MEDICARE [facility] STAND ADULT Care Teams Speed Reading Teacher Relationship Specialty Start Date End Date Rita Foley DO [address] [place] [address] PCP - General Family Medicine 04/29/18 Nicole Kingston PharmD [address] [place] [address] Pharmacist Internal Medicine 07/08/23
--- OUTSIDE RECORDS SUMMARY | 2024-08-28 09:23 | XMS_ITS | Encounter Summary ---
Author Organization [facility] Address [address] [place] [address] Care Team Providers Care Director Of Graduate Admissions Name Role Phone Rita Foley DO Primary Care Provider [phone] Nicole Kingston PharmD Unavailable [phone] Reason for Visit * Reason Onset Date Comments ELOY PA 08/14/2024 Encounter Details Date Type Department Care Team ([facility] st Contact Info) Description 08/14/2024 Telephone [facility] [address] [place] [address] Alivia Luciano RN [address] [place] [address] ELOY NEGRO Social History Tobacco Use Types Packs/Day Years [...] encounter Miscellaneous Notes * Telephone Encounter - Alivia Luciano RN - 08/24/2024 10:18 AM EDT Notified by pharmacy that PA was denied, rx needs to be written by provider instead of [facility]. Pharmacy will have rx signed by provider and reports new PA will most likely not be needed. They will f/up for any issues * Telephone Encounter - Alivia Luciano RN - 08/14/2024 10:54 AM EDT Fax received from [facility] requesting PA for freestyle solange 2 sensors. Continuous Glucose Monitor Prior Authorization Documentation: CGM PA initiated for: CGM DEVICE: Freestyle Solange Insurance: Medicare PA form completed and faxed to [facility] pharmacy. Patient's preferred pharmacy: [facility] - [address] [phone] CGM PA should be approved by: 08/21/24 This is a renewal request, pt. Is already established with device. Will call pharmacy in 1 week to check on status documented in this encounter Plan of Treatment Upcoming Encounters Date Type Department Care Team (Late st Contact Info) Description 09/07/2024 10:30 AM EDT Medication Management [facility] [address] [place] [address] Puia, Nicole, PharmD [address] [place] [address] documented as of this encounter Goals Goal Patient Goal Type Associated Problems Recent Progress Patient-Stated? Author Smoking cessation General No Puia, Nicole, PharmD Hemoglobin A1c < 7.5 Result Component 8.2( 2:16 PM EDT) No Puia, Nicole, PharmD Record your blood sugar as directed Result Component No Puia, Nicole, PharmD documented as of this encounter Visit Diagnoses Not on filedocumented in this encounter Additional Health Concerns Assessment Noted Time PHQ-9 Depression Total Score: 4 09/09/19 24 9:56 AM EDT documented as of this encounter Care Teams Director Of Graduate Admissions Relationship Specialty Start Date End Date Rita Foley DO [address] [place] [id number] PCP - General Family Medicine 04/29/18 Puia, Nicole, PharmD [address] [place] [phone] Pharmacist Internal Medicine 07/08/23 documented as of this encounter
--- OUTSIDE RECORDS SUMMARY | 2024-08-28 09:23 | XMS_ITS | Encounter Summary ---
Author Organization [facility] Address [address] [place] [address] Care Team Providers Care Purse Framer Name Role Phone Rita Foley DO Primary Care Provider [phone] Nicole Kingston PharmD Unavailable Reason for Visit * Reason Onset Date Comments FYI 06/25/2023 Encounter Details Date Type Department Care Team ([facility] st Contact Info) Description 06/25/2023 Telephone [facility] [address] [place] [address] Rita Foley DO [address] [place], [place] [phone] FY Social History Tobacco Use Types Packs/Day Years [...] Telephone Encounter - Alivia Luciano RN - 06/25/2023 9:07 AM EST Noted PCP was aware of this of 06/13, ordered head CT instead. TC placed to daughter and advised of this, daughter verbalizes understanding, reports she has not received a call yet for scheduling. Just wanted to make sure it was faxed to [facility] as it's been 12 days (not sure what the usual turn around time for scheduling is). Thank you!! * Telephone Encounter - Pj Faye - 06/25/2023 8:38 AM EST Tc from patients daughter calling to inform the Provider the patient can not proceed with the MRI due to the patient having a Pace maker implant documented in this encounter Plan of Treatment Upcoming Encounters Date Type Department Care Team (Late st Contact Info) Description 09/07/2024 10:30 AM EDT Medication Management [facility] [address] [place] [address] Nicole Kingston, PharmD [address] [place], [place] [phone] documented as of this encounter Visit Diagnoses Not on filedocumented in this encounter Additional Health Concerns Assessment Noted Time PHQ-9 Depression Total Score: 0 03/26/20 23 11:10 AM EST documented as of this encounter Care Teams Purse Framer Relationship Specialty Start Date End Date Rita Foley DO [address] [place] [address] PCP - General Family Medicine 04/29/18 Nicole Kingston PharmD [address] [place] [address] Pharmacist Internal Medicine 07/08/23 documented as of this encounter
== END 2024-08-28 10:46 | disposition home or self-care (01) ==
LOC: HO.HGI 08:54
PROVIDERS: PCP Family Medicine; Visit Provider Nurse Practitioner Family
DX: Z12.11 Encounter for screening for malignant neoplasm of colon (principal); R19.5 Other fecal abnormalities; K59.00 Constipation, unspecified; K21.9 Gastro-esophageal reflux disease without esophagitis
CPT/HCPCS: 99024

== ENCOUNTER 2024-11-04 09:11 | Outpatient (AMB) | payer MEDICARE, MEDICAID, SELFPAY ==
--- OUTSIDE RECORDS SUMMARY | 2024-11-04 09:28 | XMS_ITS | Encounter Summary ---
Author Organization [employer] Address [address] [place] [address] Care Team Providers Care Software Specialist Name Role Phone Rita Foley DO Primary Care Provider Nicole Kingston PharmD Unavailable Reason for Visit * Reason Comments Med Refill Encounter Details Date Type Department Care Team (Late st Contact Info) Description 09/12/2023 Refill [facility] [address] [place], [place] [phone] Rita Foley DO [address] [place] [address] Type 2 diabetes mellitus with other specified complication, with long-term current use of insulin ([facility]) Social History Tobacco Use Types Packs/Day Years [...] Care Team (Late st Contact Info) Description 11/17/2024 1:00 PM EDT Medication Management [facility] [address] [place] [address] Puia, Nicole, PharmD [address] [place] [address] documented as of this encounter Goals Goal Patient Goal Type Associated Problems Recent Progress Patient-Stated? Author Smoking cessation General No Puia, Nicole, PharmD Hemoglobin A1c < 7.5 Result Component 8.2( 10:19 AM EDT) No Puia, Nicole, PharmD Record your blood sugar as directed Result Component No Puia, Nicole, PharmD documented as of this encounter Visit Diagnoses Diagnosis Type 2 diabetes mellitus with other specified complication, with long-term current use of insulin ([facility]) documented in this encounter Additional Health Concerns Assessment Noted Time PHQ-9 Depression Total Score: 4 09/09/19 24 9:56 AM EDT documented as of this encounter Care Teams Software Specialist Relationship Specialty Start Date End Date Rita Foley DO [address] [place] [address] PCP - General Family Medicine 04/29/18 Nicole Kingston, PharmD [address] [place] [address] Pharmacist Internal Medicine 07/08/23 documented as of this encounter
--- OUTSIDE RECORDS SUMMARY | 2024-11-04 09:28 | XMS_ITS | Clinical Summary ---
Author Organization [facility] Address [address] [place] [address] Phone Care Team Providers Care Food And Beverage Server Name Role Phone Rita Foley DO Primary [...] Exam 05/29/2020 Diabetes: Hemoglobin A1C 02/18/2024 11/18/2023, 03/0 05/2019 Influenza Vaccine (#1) 2024 , 03/09/2020, 02/10/2014, Additional history exists Hepatitis B Vaccine Aged Out 05/19/2014, 07/08/2013, 06/10/2013 No longer eligible based on patient's age to complete this topic Pneumococcal Vaccine: 50+ Years Completed 04/24/2019, 03/07/2018, 11/15/2011 Pneumococcal Vaccine: Peds (0 to 5 Years) and At-Risk Patients (6 to 49 Years) Discontinued 04/24/2019, 03/07/2018, 11/15/2011 Procedures Procedure Name Priority Date/Time Associated Diagnosis [...] k/uL PVNMA 06/29/2019 us [facility] Conversion LAB [id number] LICITED RESULTS Final Result PVNMA from Last 3 Months or Most Recently Relevant to Health Maintenance Insurance Medicare Medicaid [place] Medicare Medicaid [place] Care Teams Food And Beverage Server Relationship Specialty Start Date End Date Rita Foley DO PCP - General 05/09/20
[2024-11-04 09:31] VITALS: BP 80/50; PULSE 92; O2SAT 97; BMI 17.0
--- NOTE | 2024-11-04 09:31 | HO.NEPHOV_ITS ---
Vital Signs 11/04/24 09:31 Height 5 ft 8 in Weight 112 lb BMI 17.0 BP 80/50 L Blood Pressure Location Lt brachial Position Sitting Pulse 92 Pulse Source Pulse Oximeter Pulse Oximetry (%) 97 Oxygen Delivery Method Room Air Intake Visit Reasons: Diabetic nephropathy-LVM Proof Machine Operator Required: No Proof Machine Operator Services: Proof Machine Operator Offered & Declined Accompanied by: Family/Other Allergies No Known Allergies Allergy (Verified 11/04/24 09:34) HPI Comments Details: I had the pleasure of seeing Shaka in follow-up of his proteinuria. He is a longstanding diabetic. He claims to have a better blood sugar control now. Does not have any active cardiac symptoms. He is on ARB as well as Jardiance among other medications which is tolerating well. He does not have any orthostatic symptoms. He denies any nausea, vomiting, diarrhea, shortness of breath, paroxysmal nocturnal dyspnea, orthopnea, pedal edema or urinary symptoms. He is not taking excessive nonsteroidal anti-inflammatory medications and maintain good hydration. There were no active complaints at the time of this office visit. [facility] Medical History Implantable cardioverter-defibrillator (ICD) at end of battery life Paroxysmal atrial flutter Atrial flutter with rapid ventricular response Vitamin D deficiency HLD (hyperlipidemia) HTN (hypertension) T2DM (type 2 diabetes mellitus) Hyperlipidemia DG (obstructive sleep apnea) Diabetes mellitus Intracardiac thrombus Paroxysmal atrial fibrillation History of congestive heart failure History of cardiomyopathy ICD (implantable cardioverter-defibrillator) in place Surgical History Hx of colonoscopy History of eye surgery Hx of rotator cuff surgery History of permanent cardiac pacemaker placement Family History Father No problems noted. Mother No problems noted. Sister CAD (coronary artery disease) Social History Household Members: None Housing: House Do you presently have visiting nurse or other home services: No Alcohol intake: never Comment: n/a Patient Tobacco Use Status: Current everyday Tobacco user Tobacco use type: Cigarette Cigarettes Per Day: 3 e-Cigarette/Vaping Use: Never Used service: No Review of Systems Const All systems reviewed & are unremarkable except as noted in HPI and below Physical Exam Vital Signs: Last Vital Signs Pulse 92 11/04/24 09:31 BP 76/50 L 11/04/24 09:31 Pulse Ox 97 11/04/24 09:31 Oxygen Delivery Method Room Air 11/04/24 09:31 BMI result Body Mass Index 17.0 Const General: comfortable and no acute distress Orientation/consciousness: patient oriented x3 HEENT Head: Yes normocephalic Mouth: Normal oral and palatal mucosa present Eyes EOM: EOMs intact bilaterally Neck Neck: Yes supple Resp Auscultation: clear to auscultation bilaterally Cardio Jugular venous distension: no JVD Rate: regular rate GI Palpation (GI): Soft to palpation Auscultation: normal bowel sounds General: Yes no CVA tenderness Back/Spine/Pelvis Back: no CVA tenderness Skin General skin exam: no rashes or lesions noted Neuro General: patient oriented x3 and moves all extremities Extrem General: Yes no pedal edema Results Reviewed Nephrology Results: Sodium, (135-145) 143 mmol/L 05/01/24 Potassium, (3.3-5.1) 4.7 mmol/L 05/01/24 Chloride, (96-108) 108 mmol/L 05/01/24 Carbon Dioxide, (22-29) 30 mmol/L H 05/01/24 BUN, (9-16) 18 mg/dL H 05/01/24 Creatinine, (0.5-1.4) 0.82 mg/dL 05/01/24 Calcium, (8.4-10.2) 9.7 mg/dL 03/24/24 Urine Creatinine 48.69 mg/dL 05/01/24 Protein/Creatinin Ratio, (<0.2) 0.94 H 05/01/24 Assessment & Plan Assessment & Plan (1) Diabetic nephropathy: Code(s): E11.21 - Type 2 diabetes mellitus with diabetic nephropathy Category: Medical Qualifiers: Diabetes mellitus type: type 2 Qualified Code(s): E11.21 - Type 2 diabetes mellitus with diabetic nephropathy Plan 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 His renal functions are pretty stable. His blood sugar control is better. He is on valsartan and Jardiance. His blood pressure is at goal. He maintains good hydration. I have ordered blood work and urine studies. I did not make any medication changes at this visit. Further management is pending evolving data. Orders: Orders Creatinine 6 Months E11.21 - Type 2 diabetes mellitus with diabetic nephropathy Blood Urea Nitrogen 6 Months E11.21 - Type 2 diabetes mellitus with diabetic nephropathy Electrolytes 6 Months E11.21 - Type 2 diabetes mellitus with diabetic nephropathy Protein Creatinine Ratio, Ur 6 Months E11.21 - Type 2 diabetes mellitus with diabetic nephropathy Coding Level of Care Code Est Pt Level 4 (47401) Diagnoses Diabetic nephropathy associated with type 2 diabetes mellitus E11.21 Diabetes mellitus type: type 2
== END 2024-11-04 09:50 | disposition home or self-care (01) ==
LOC: HO.HKA 09:12
PROVIDERS: PCP Family Medicine; Visit Provider Internal Medicine Nephrology
DX: E11.21 Type 2 diabetes mellitus with diabetic nephropathy (principal)
CPT/HCPCS: 99214

== ENCOUNTER → 2024-11-04 09:11 | Outpatient (BNVA) | payer MEDICARE, MEDICAID, SELFPAY | PROVIDERS: PCP Family Medicine; Visit Provider Internal Medicine Nephrology | DX: E11.21 Type 2 diabetes mellitus with diabetic nephropathy (principal) | CPT/HCPCS: 99212 ==

== ENCOUNTER 2024-11-05 09:01 | Outpatient (AMB) | payer MEDICARE, MEDICAID, SELFPAY ==
--- OUTSIDE RECORDS SUMMARY | 2024-11-05 09:25 | XMS_ITS | Clinical Summary ---
Author Organization [facility] Address [address] [place] [address] Phone Care Team Providers Care Merchandise Distributor Name Role Phone Rita Foley DO Primary [...] k/uL PVNMA 06/29/2019 us Rtama Conversion LAB [id number] LICITED RESULTS Final Result PVNMA from Last 3 Months or Most Recently Relevant to Health Maintenance Insurance Medicare Medicaid [place] Medicare [place] Care Teams Merchandise Distributor Relationship Specialty Start Date End Date Rita Foley DO PCP - General 05/09/20
--- NOTE | 2024-11-05 09:40 | MHC.OFFVIS ---
Vital Signs 11/05/24 09:43 Height 5 ft 8 in Weight 111 lb 15.917 oz BMI 17.0 BP 100/52 L Blood Pressure Location Lt brachial Position Sitting Pulse 87 Pulse Source Monitor Intake Visit Reasons: 6m w/device ck/ pre op colonoscopy Intake Note: 6 mth /device check/pre-op Storage Architect Required: No Storage Architect Services: Storage Architect Offered & Declined Accompanied by: Daughter Allergies No Known Allergies Allergy (Verified 11/04/24 09:34) Medication List - Last Reconciled 11/05/24 by Gabriel Cassidy MD amitriptyline 10 mg PO BEDTIME apixaban (Eliquis) 5 mg PO BID atorvastatin 10 mg PO BEDTIME bisacodyl (Dulcolax (bisacodyl)) 20 mg (4 x 5 mg) PO ONCE 1 day blood sugar diagnostic (FreeStyle Test strips) As directed two times a day chlorhexidine gluconate 0.12% PO empagliflozin (Jardiance) 25 mg PO QAM furosemide 20 mg See Protocol PO ONCE PRN 90 days gabapentin 300 mg PO TID insulin asp prt-insulin aspart 100 unit/mL (70-30) (Novolog Mix 70-30 U-100 Insuln) 5 units subcut BID insulin degludec 10 units subcut QAM ivabradine (Corlanor) 5 mg PO BID lancets (FreeStyle Lancets) As directed metformin 1,000 mg PO BID multivitamin 1 tab PO DAILY omeprazole 20 mg PO DAILY pen needle, diabetic As directed polyethylene glycol 3350 (Miralax) 238 grams PO ONCE semaglutide (Ozempic) 1 mg subcut QWEEK sotalol 80 mg PO BID valsartan 20 mg (1/2 x 40 mg) PO BID HPI Comments Details: Shaka comes for follow-up, accompanied by his daughter. History was obtained with help of her daughter who acts as heavy duty truck mechanic. They declined a certified heavy duty truck mechanic. Patient's daughter notices low blood pressure usually in the morning time. He takes valsartan twice a day at a very low-dose. Denies any significant lightheadedness or syncope. Denies any worsening shortness of breath, orthopnea, PND. No prolonged palpitation irregular heartbeat. No ICD discharge. He remains active as per the daughter but does not go out for walks. She is concerned about him losing weight [facility] Medical History Implantable cardioverter-defibrillator (ICD) at end of battery life Paroxysmal atrial flutter Atrial flutter with rapid ventricular response Vitamin D deficiency HLD (hyperlipidemia) HTN (hypertension) T2DM (type 2 diabetes mellitus) Hyperlipidemia DG (obstructive sleep apnea) Diabetes mellitus Intracardiac thrombus Paroxysmal atrial fibrillation History of congestive heart failure History of cardiomyopathy ICD (implantable cardioverter-defibrillator) in place Surgical History Hx of colonoscopy History of eye surgery Hx of rotator cuff surgery History of permanent cardiac pacemaker placement Family History Father No problems noted. Mother No problems noted. Sister CAD (coronary artery disease) Social History Household Members: None Housing: House Do you presently have visiting nurse or other home services: No Alcohol intake: never Comment: n/a Patient Tobacco Use Status: Current everyday Tobacco user Tobacco use type: Cigarette Cigarettes Per Day: 3 e-Cigarette/Vaping Use: Never Used service: No Review of Systems Const Denies chills, Denies fatigue, Denies fever(s), Denies frequent falls, Denies weakness, Denies weight gain and Denies weight loss ENT Denies dizziness Card Denies chest pain, Denies leg edema, Denies lightheadedness, Denies palpitations, Denies dyspnea and Denies dyspnea on exertion Resp Denies cough, Denies dyspnea and Denies dyspnea on exertion GI Denies hematochezia Musc Denies abnormal gait, Denies muscle weakness, Denies numbness, Denies radiating pain into limb and Denies tingling Neuro Denies abnormal gait, Denies dizziness, Denies frequent falls, Denies numbness, Denies tingling and Denies weakness Endo Denies fatigue and Denies palpitations Physical Exam Vital Signs: Last Vital Signs Pulse 87 11/05/24 09:43 BP 100/52 L 11/05/24 09:43 BMI result Body Mass Index 17.0 Const General: cooperative, comfortable, alert and awake Nutritional Appearance: thin Orientation/consciousness: patient oriented x3 Limitations: no limitations Neck Neck: Yes trachea midline, Yes supple and Yes no JVD Resp Effort & Inspection: normal respiratory effort Auscultation: clear to auscultation bilaterally Cardio Jugular venous distension: no JVD Palpation: normal PMI Rate: regular rate Rhythm: regular rhythm Heart sounds: S1 normal heart sound present and S2 normal heart sound present GI Auscultation: normal bowel sounds Skin General skin exam: ecchymosis Neuro General: patient oriented x3 and no focal motor deficits Extrem General: Yes no clubbing, cyanosis or edema Psych Appearance: grossly normal Office Procedures Cardiac Device Check Cardiac Device Check Details: Single-chamber [facility] ICD in place. Programmed in VVI at 40 beats per minute. Few episodes of nonsustained high ventricular rate noted which could represent nonsustained VT. No prolonged atrial fibrillation episodes noted. Capture thresholds adequate. Ventricular sensing is excellent. Pacing and shock lead impedance is stable. Battery life is at 8.7 years [id number]-JI Cardiac Device Check, single lead implantable defibrillator Procedure code (CPT) selection complete EKG Details: EKG shows normal sinus rhythm at 88 beats per minute with minimally prolonged QTC interval with rightward axis. [id number], Complete Assessment & Plan Assessment & Plan (1) Cardiomyopathy: Code(s): I42.9 - Cardiomyopathy, unspecified Category: Medical Plan: Patient with cardiomyopathy, nonischemic, with poor tolerance to neurohormonal modulation. Blood pressure is low in the morning time. At this point time will reduce valsartan to once a day and take it in the afternoon time. Discussed with her her and him about need for neurohormonal modulation although given low tolerance and low blood pressure can not further uptitrate. Continue Corlanor therapy. Continue sotalol therapy as well. Signs and symptoms of heart failure were discussed. On Lasix as need be basis. Continue the same. Daily weight monitoring avoidance salt loading was discussed. Consider discontinue Ozempic therapy given his weight loss. (2) Paroxysmal atrial fibrillation: Code(s): I48.0 - Paroxysmal atrial fibrillation Category: Medical Plan: Paroxysmal atrial fibrillation has remained suppressed on sotalol therapy. Has done well with rhythm control approach will continue pursue rhythm control approach. Continue sotalol therapy. Semi annual renal function test and EKGs will be performed. Will continue monitor pacer telemetry remotely. Continue full oral anticoagulation, currently on Eliquis 5 mg b.i.d.. Semi annual renal function test should be pursued. (3) ICD (implantable cardioverter-defibrillator) in place: Comment: Reviewed note 04/30/23 Code(s): Z95.810 - Presence of automatic (implantable) cardiac defibrillator Category: Medical Plan: ICD in place, working well. Reprogrammed for adequate function. Will follow remotely for heart failure as well as device functioning. Will follow up in the clinic in 6 months time, sooner p.r.n.. Thank you for allowing me to partake in his care Orders: Orders Complete Blood Count no Diff Today I48.0 - Paroxysmal atrial fibrillation Basic Metabolic Panel Today I48.0 - Paroxysmal atrial fibrillation Medications: Changed From valsartan 20 mg (1/2 x 40 mg) PO BID 60 tabs 11RF To valsartan 20 mg (1/2 x 40 mg) PO DAILY 60 tabs 11RF Coding Level of Care Code Est Pt Level 4 (40011) Complex EM visit Add On G2211 Diagnoses Cardiomyopathy I42.9 Paroxysmal atrial fibrillation I48.0 ICD (implantable cardioverter-defibrillator) in place Z95.810 CPT Codes Cardiac Device Check - Cardiac Device 4: 24125-UV Cardiac Device Check, single lead implantable defibrillator ([id number]) EKG - CPT: 72963-[id number], Complete ([id number])
[2024-11-05 09:43] VITALS: BP 100/52; PULSE 87; BMI 17.0
== END 2024-11-05 10:01 | disposition home or self-care (01) ==
LOC: HO.HCS 09:02
PROVIDERS: PCP Family Medicine; Visit Provider Internal Medicine Cardiovascular Disease
DX: I42.9 Cardiomyopathy, unspecified (principal); I48.0 Paroxysmal atrial fibrillation; Z95.810 Presence of automatic (implantable) cardiac defibrillator
CPT/HCPCS: 93010; 93282; 99214; G2211

== ENCOUNTER 2024-11-05 09:01 | Outpatient (REF) | payer MEDICARE, MEDICAID, SELFPAY ==
--- OUTSIDE RECORDS SUMMARY | 2024-11-05 10:53 | XMS_ITS | Encounter Summary ---
Author Organization [employer] Address [address] [place] [address] Care Team Providers Care Egg Factory Worker Name Role Phone Rita Foley DO Primary Care Provider Nicole Kingston PharmD Unavailable Reason for Visit * Reason Comments Med Refill Encounter Details Date Type Department Care Team (Late st Contact Info) Description 09/12/2023 Refill [facility] P[facility]S [address] [place], [place] [phone] Rita Foley DO [address] [place] [address] Type 2 diabetes mellitus with other specified complication, with long-term current use of insulin ([facility]) Social History Tobacco Use Types Packs/Day [...] Description 11/17/2024 1:00 PM EDT Medication Management [facility] [address] [place] [address] Puia, Nicole, PharmD [address] [place] [address] documented as of this encounter Goals Goal [...] complication, with long-term current use of insulin ([facility]) documented in this encounter Additional Health Concerns Assessment Noted Time PHQ-9 Depression Total Score: 4 09/09/19 24 9:56 AM EDT documented as of this encounter Care Teams Egg Factory Worker Relationship Specialty Start Date End Date Rita Foley DO [address] [place] [address] PCP - General Family Medicine 04/29/18 Nicole Kingston, PharmD [address] [place] [address] Pharmacist Internal Medicine 07/08/23 documented as of this encounter
[2024-11-05 11:03] LABS: Hematocrit 47.8 % (42.0-52.0); Hemoglobin 16.4 g/dl (14.0-18.0); Mean Corpuscular HGB Conc 34.3 g/dl (31.0-36.0); Mean Corpuscular Hemoglobin 33.9 pg (27.0-33.0); Mean Corpuscular Volume 98.8 fL (80.0-98.0); NRBC Abs Auto 0.000 X10*3/uL (0.0-0.012); NRBC Pct Auto 0.0 /100WBC (0.0-0.2); Platelet Count 132 X10*3/uL (160-400); Red Blood Count 4.84 X10*6/uL (4.60-5.80); White Blood Count 8.1 X10*3/uL (4.8-10.8)
[2024-11-05 11:32] LABS: Anion Gap 10 (12-20); Blood Urea Nitrogen 25 mg/dL (9-16); Calcium 9.5 mg/dL (8.4-10.2); Carbon Dioxide 30 mmol/L (22-29); Chloride 106 mmol/L (96-108); Estimated Glomerular Filt Rate > 60; Potassium 4.3 mmol/L (3.3-5.1); Sodium 142 mmol/L (135-145)
== END 2024-11-05 09:02 | disposition home or self-care (01) ==
LOC: HO.LAB 09:01
PROVIDERS: PCP Family Medicine; Visit Provider Internal Medicine Cardiovascular Disease
DX: I48.0 Paroxysmal atrial fibrillation (principal)
CPT/HCPCS: 36415; 80048; 85027; 93005; 99212

== ENCOUNTER 2024-11-25 09:17 | Outpatient (AMB) | payer MEDICARE, MEDICAID, SELFPAY ==
--- NOTE | 2024-11-25 09:26 | MHC.OFFVIS ---
Vital Signs 11/25/24 09:34 Height 5 ft 8 in Weight 112 lb BMI 17.0 BP 86/58 L Blood Pressure Location Rt brachial Position Sitting Pulse 68 Pulse Source Pulse Oximeter Pulse Oximetry (%) 95 Oxygen Delivery Method Room Air Intake Visit Reasons: 3 mos FUV. GERD mgmt. Rediscuss colo Intake Note: ESTABLISHED PATIENT for superintendent container terminal anticoagulant use and GERD mgmt. CC; Pt denies any GI changes or new sx since last visit. Tree Surgeon Required: Yes Tree Surgeon Services: Tree Surgeon Offered & Declined Accompanied by: Family/Other Allergies No Known Allergies Allergy (Verified 11/25/24 09:26) HPI HPI 3 mos FUV. GERD mgmt. Rediscuss colo: Details: LAST VISIT: Positive colorectal cancer screening using Cologuard test Anticoagulant long-term use Screen for colon cancer Intracardiac thrombus GERD (gastroesophageal reflux disease) Plan Patient denies any cardiac or respiratory symptoms. Reports occasional constipation uses MiraLax or milk of magnesia as needed. Patient has defibrillator and sees cardiology next appointment in August. Will send a message to amphibious operations officer for patient to be cleared before going for procedure. Patient is on Eliquis.? Denies any issues with anesthesia in the past.? Denies any history of sleep apnea.? No history infectious diseases in the past or present.? No family or personal history of colon cancer or polyps.? Patient denies melena, hematochezia, unintentional weight loss or ribbon like stools.? Discussed at length the pre-procedure,? prep, diet & medications as well as what to expect prior, during and after the procedure.?? Stressed the importance of good bowel prep.? Recommended the use of Vaseline or Calmoseptine OTC & baby wipes with bowel movements to promote comfort.? ?Patient verbalizes understanding and agrees to plan of care.? He was given the opportunity to ask questions and all questions answered.? We will see him after the procedure.? Orders TSH reflex Free T4 Today K59.00 Hemoglobin A1c Today Z83.3 New bisacodyl (Dulcolax (bisacodyl)) take 4 tabs at noon the day before your colonoscopy 20 mg (4 x 5 mg) PO ONCE 4 tabs 0RF 1 day Z12.11 omeprazole 20 mg PO DAILY 30 caps 3RF K21.9 polyethylene glycol 3350 (Miralax) As directed by gastroenterology department at [facility] 238 grams PO ONCE 238 grams 0RF Z12.11 TODAY'S VISIT Patient is here today for follow-up. He is accompanied by his son who is helping with translation. Patient reports to be feeling better after starting him on omeprazole. Patient denies any melena, hematochezia, unintentional weight loss or ribbon like stools. Although patient is underweight. Patient's son reports that he is not eating much. Patient's son reports that he is very picky when it comes to food. Patient just clear by Cardiology.. Patient denies any dyspepsia, dysphagia or odynophagia. Reports that he is moving his bowels better now. Denies any GI concerning symptoms. Patient is on Eliquis. Denies any cardiac or respiratory symptoms. [facility] Medical History Implantable cardioverter-defibrillator (ICD) at end of battery life Paroxysmal atrial flutter Atrial flutter with rapid ventricular response Vitamin D deficiency HLD (hyperlipidemia) HTN (hypertension) T2DM (type 2 diabetes mellitus) Hyperlipidemia DG (obstructive sleep apnea) Diabetes mellitus Intracardiac thrombus Paroxysmal atrial fibrillation History of congestive heart failure History of cardiomyopathy ICD (implantable cardioverter-defibrillator) in place Surgical History Hx of colonoscopy History of eye surgery Hx of rotator cuff surgery History of permanent cardiac pacemaker placement Family History Father No problems noted. Mother No problems noted. Sister CAD (coronary artery disease) Social History Household Members: None Housing: House Do you presently have visiting nurse or other home services: No Alcohol intake: never Comment: n/a Patient Tobacco Use Status: Current everyday Tobacco user Tobacco use type: Cigarette Cigarettes Per Day: 3 e-Cigarette/Vaping Use: Never Used service: No Review of Systems Const Denies weight gain and Denies weight loss ENT Reports no additional complaints, Denies dysphagia and Denies odynophagia Card Reports no additional complaints Resp Reports no additional complaints GI Denies abdominal pain, Denies belching, Denies melena, Denies bloating, Denies change in bowel habits, Reports constipation (Occasional), Denies dysphagia, Denies excessive flatus, Denies dyspepsia, Denies heartburn, Denies diarrhea, Denies loose stools, Denies nausea, Denies odynophagia and Denies vomiting Reports no additional complaints Musc Reports no additional complaints Neuro Reports no additional complaints Psych Reports no additional complaints Endo Reports no additional complaints Physical Exam Vital Signs: Last Vital Signs Pulse 68 11/25/24 09:34 BP 86/58 L 11/25/24 09:34 Pulse Ox 95 11/25/24 09:34 Oxygen Delivery Method Room Air 11/25/24 09:34 BMI result Body Mass Index 17.0 Const Nutritional Appearance: underweight Orientation/consciousness: patient oriented x3 Resp Effort & Inspection: normal respiratory effort, able to speak in complete sentences, no tracheal deviation and symmetric chest movement Auscultation: clear to auscultation bilaterally Cardio Rate: regular rate GI Inspection: Yes normal to inspection and No distended Palpation (GI): Soft to palpation, not firm, nontender and No hepatosplenomegaly present Auscultation: normal bowel sounds General: Yes no CVA tenderness Back/Spine/Pelvis Back: no CVA tenderness Skin General skin exam: elasticity normal, turgor normal and dry skin Neuro General: patient oriented x3 Psych Appearance: grossly normal Mental Status: mental status grossly normal Results Reviewed Results Reviewed: Laboratory Tests 08/28/24 10:19 Hemoglobin A1c % 8.2 H TSH 1.40 Assessment & Plan Assessment & Plan (1) Anticoagulant long-term use: Code(s): Z79.01 - superintendent container terminal (current) use of anticoagulants Category: Medical (2) Screen for colon cancer: Code(s): Z12.11 - Encounter for screening for malignant neoplasm of colon Category: Medical (3) Intracardiac thrombus: Code(s): I51.3 - Intracardiac thrombosis, not elsewhere classified Category: Medical (4) Positive colorectal cancer screening using DNA-based stool test: Code(s): R19.5 - Other fecal abnormalities (5) Gastroesophageal reflux disease: Code(s): K21.9 - Gastro-esophageal reflux disease without esophagitis Qualifiers: Esophagitis presence: esophagitis presence not specified Qualified Code(s): K21.9 - Gastro-esophageal reflux disease without esophagitis Plan Patient will continue taking omeprazole daily. Avoid dietary triggers and late night snacking. Staying upright for minimal 3 hours after meals discussed with patient. Patient will be sent for upper endoscopy. Patient cleared by Cardiology. Denies melena, hematochezia, unintentional weight loss or ribbon like stools. Although patient has been losing weight gradually. Discussed with him high caloric diet and a list of food recommended and how to make extra calorie protein shakes given to patient. What to expect before during and after procedure discussed with patient. Stressed the importance of good bowel prep and clear liquid diet day before procedure. Message sent to Surgical schedules to book procedure for patient. Patient will be seen after the procedure, sooner on as needed basis. Both patient and his son are agreeable to plan of care and verbalizes understanding of instructions. They were given the opportunity to ask questions and all questions answered. Thank you for allowing me to participate in his care Medications: New bisacodyl (Dulcolax (bisacodyl)) take 4 tabs at noon the day before your colonoscopy 20 mg (4 x 5 mg) PO ONCE 4 tabs 0RF constipation 1 day Z12.11 - Encounter for screening for malignant neoplasm of colon polyethylene glycol 3350 (Miralax) As directed by gastroenterology department at [facility] 238 grams PO ONCE 238 grams 0RF Z12.11 - Encounter for screening for malignant neoplasm of colon Coding Level of Care Code Est Pt Level 4 (68420) Complex EM visit Add On G2211 Diagnoses Anticoagulant long-term use Z79.01 Screen for colon cancer Z12.11 Intracardiac thrombus I51.3 Positive colorectal cancer screening using DNA-based stool test R19.5 Gastroesophageal reflux disease, unspecified whether esophagitis present K21.9 Esophagitis presence: esophagitis presence not specified Time Spent (min) 35 Comment 25 minute spent with patient and additional 10 minutes spent reviewing his records
[2024-11-25 09:34] VITALS: BP 86/58; PULSE 68; O2SAT 95; BMI 17.0
--- OUTSIDE RECORDS SUMMARY | 2024-11-25 09:47 | XMS_ITS | Encounter Summary ---
Author Organization [facility] Address [address] [place] [address] Phone Care Team Providers Care Tie In Hand Name Role Phone TomasaRita khanna Primary Care Provider Encounter Details Date Type Department Care Team (Latest Contact Info) Description 02/18/2023 Transcribe Orders [facility] [address] [place] [address] [address] Floor, [address] [place] [address] J Luis Dunn MD [address] [place] [address] [email or web address] Pacemaker (Primary Dx) Social History Tobacco Use Types Packs/Day Years Used Date Smoking Tobacco: Every Day Cigarettes Smokeless Tobacco: Never Education Answer Date Recorded Are you interested in more education? Not on katheryn e 01/25/2023 Are you concerned about learning? Not on file 01/25/2023 No 01/25/2023 No 01/25/2023 Digital Access Answer Date Recorded No 01/25/2023 No 01/25/2023 Reliable internet access at home? Not on file 01/25/2023 Device with a working camera? Not on file Sex and Gender Information Value Date Recorded Sex Assigned at Not on file Legal Sex Male 11:24 AM EDT Gender Identity Not on file Sexual Orientation Not on file documented as of this encounter Plan of Treatment Scheduled Orders Name Type Priority Associated Diagnoses Orde r Schedule EP Device Check / Follow Up Cardiac Monitors Routine Pacemaker Other for 12 Occurrences starting 02/18/2023 until 02/18/2025 documented as of this encounter Visit Diagnoses Diagnosis Pacemaker- Primary Cardiac pacemaker in situ documented in this encounter Care Teams Tie In Hand Relationship Specialty Start Date End Date Rita Foley DO [address] [place] [address] PCP - General Family Medicine 01/24/23 documented as of this encounter Additional Source Comments The information contained in this document represents components of the legal health record. It is not the complete legal health record.[facility]
--- OUTSIDE RECORDS SUMMARY | 2024-11-25 09:47 | XMS_ITS | Clinical Summary ---
Author Organization [facility] Address [address] [place] [address] Phone Care Team Providers Care Industrial Engineering Technologist Name Role Phone Rita Foley DO Primary [...] k/uL PVNMA 06/29/2019 us [facility]version [facility] [id number] LICITED RESULTS Final Result PVNMA from Last 3 Months or Most Recently Relevant to Health Maintenance Insurance Medicare Medicaid [place] Medicaid [place] Care Teams Industrial Engineering Technologist Relationship Specialty Start Date End Date Rita Foley DO PCP - General 05/09/20
== END 2024-11-25 10:14 | disposition home or self-care (01) ==
LOC: HO.HGI 09:18
PROVIDERS: PCP Family Medicine; Visit Provider Nurse Practitioner Family
DX: R19.5 Other fecal abnormalities (principal); K21.9 Gastro-esophageal reflux disease without esophagitis; I51.3 Intracardiac thrombosis, not elsewhere classified; Z79.01 Long term (current) use of anticoagulants
CPT/HCPCS: 99214; G2211

== ENCOUNTER → 2024-11-25 09:17 | Outpatient (BNVA) | payer MEDICARE, MEDICAID, SELFPAY | PROVIDERS: PCP Family Medicine; Visit Provider Nurse Practitioner Family | DX: Z12.11 Encounter for screening for malignant neoplasm of colon (principal); I51.3 Intracardiac thrombosis, not elsewhere classified; R19.5 Other fecal abnormalities; K21.9 Gastro-esophageal reflux disease without esophagitis; Z79.01 Long term (current) use of anticoagulants | CPT/HCPCS: 99212 ==

== ENCOUNTER → 2024-11-25 23:59 | Outpatient (BNV) | payer MEDICARE, MEDICAID, SELFPAY ==
--- NOTE | 2024-11-25 17:08 | A.OFFVIS_ITS ---
Intake Visit Reasons: Remote ICD check- [facility] Allergies No Known Allergies Allergy (Verified 11/25/24 09:26) [facility] Medical History Implantable cardioverter-defibrillator (ICD) at end of battery life Paroxysmal atrial flutter Atrial flutter with rapid ventricular response Vitamin D deficiency HLD (hyperlipidemia) HTN (hypertension) T2DM (type 2 diabetes mellitus) Hyperlipidemia DG (obstructive sleep apnea) Diabetes mellitus Intracardiac thrombus Paroxysmal atrial fibrillation History of congestive heart failure History of cardiomyopathy ICD (implantable cardioverter-defibrillator) in place Surgical History Hx of colonoscopy History of eye surgery Hx of rotator cuff surgery History of permanent cardiac pacemaker placement Family History Father No problems noted. Mother No problems noted. Sister CAD (coronary artery disease) Social History Household Members: None Housing: House Do you presently have visiting nurse or other home services: No Alcohol intake: never Comment: n/a Patient Tobacco Use Status: Current everyday Tobacco user Tobacco use type: Cigarette Cigarettes Per Day: 3 e-Cigarette/Vaping Use: Never Used service: No Office Procedures Cardiac Device Check Cardiac Device Check Details: Remote ICD report generated 11/25/2024. ICD function is adequate [id number] Cardiac Interrogation, implant defibrillator w/interim Procedure code (CPT) selection complete Assessment & Plan Assessment & Plan (1) ICD (implantable cardioverter-defibrillator) in place: Comment: Reviewed note 04/30/23 Code(s): Z95.810 - Presence of automatic (implantable) cardiac defibrillator Category: Medical Plan: See above Coding Level of Care Code Procedure Only Diagnoses ICD (implantable cardioverter-defibrillator) in place Z95.810 CPT Codes Cardiac Device Check - Cardiac Device 13: [id number] Cardiac Interrogation, implant defibrillator w/interim ([id number])
== END ==
PROVIDERS: PCP Family Medicine; Visit Provider Internal Medicine Cardiovascular Disease
DX: Z45.02 Encounter for adjustment and management of automatic implantable cardiac defibrillator (principal)
CPT/HCPCS: 93295

== ENCOUNTER → 2025-02-03 23:59 | Outpatient (BNV) | payer MEDICARE, MEDICAID, SELFPAY ==
--- NOTE | 2025-02-03 16:48 | MHC.OFFVIS ---
Intake Visit Reasons: Remote ICD check- [facility] Allergies No Known Allergies Allergy (Verified 11/25/24 09:26) [facility] Medical History Implantable cardioverter-defibrillator (ICD) at end of battery life Paroxysmal atrial flutter Atrial flutter with rapid ventricular response Vitamin D deficiency HLD (hyperlipidemia) HTN (hypertension) T2DM (type 2 diabetes mellitus) Hyperlipidemia DG (obstructive sleep apnea) Diabetes mellitus Intracardiac thrombus Paroxysmal atrial fibrillation History of congestive heart failure History of cardiomyopathy ICD (implantable cardioverter-defibrillator) in place Surgical History Hx of colonoscopy History of eye surgery Hx of rotator cuff surgery History of permanent cardiac pacemaker placement Family History Father No problems noted. Mother No problems noted. Sister CAD (coronary artery disease) Social History Household Members: None Housing: House Do you presently have visiting nurse or other home services: No Alcohol intake: never Comment: n/a Patient Tobacco Use Status: Current everyday Tobacco user Tobacco use type: Cigarette Cigarettes Per Day: 3 e-Cigarette/Vaping Use: Never Used service: No Office Procedures Cardiac Device Check Cardiac Device Check Details: Remote ICD report generated 02/03/2025. ICD function is adequate [id number] Cardiac Interrogation, implant defibrillator w/interim Procedure code (CPT) selection complete Assessment & Plan Assessment & Plan (1) ICD (implantable cardioverter-defibrillator) in place: Comment: Reviewed note 04/30/23 Code(s): Z95.810 - Presence of automatic (implantable) cardiac defibrillator Category: Medical Plan: See above Coding Level of Care Code Procedure Only Diagnoses ICD (implantable cardioverter-defibrillator) in place Z95.810 CPT Codes Cardiac Device Check - Cardiac Device 13: [id number] Cardiac Interrogation, implant defibrillator w/interim ([id number])
== END ==
PROVIDERS: PCP Family Medicine; Visit Provider Internal Medicine Cardiovascular Disease
DX: Z45.02 Encounter for adjustment and management of automatic implantable cardiac defibrillator (principal)
CPT/HCPCS: 93295

== ENCOUNTER → 2025-02-24 23:59 | Outpatient (BNV) | payer MEDICARE, MEDICAID, SELFPAY ==
--- NOTE | 2025-03-03 12:32 | A.OFFVIS_ITS ---
Intake Visit Reasons: Remote ICD check- [facility] Allergies No Known Allergies Allergy (Verified 11/25/24 09:26) [facility] Medical History Implantable cardioverter-defibrillator (ICD) at end of battery life Paroxysmal atrial flutter Atrial flutter with rapid ventricular response Vitamin D deficiency HLD (hyperlipidemia) HTN (hypertension) T2DM (type 2 diabetes mellitus) Hyperlipidemia DG (obstructive sleep apnea) Diabetes mellitus Intracardiac thrombus Paroxysmal atrial fibrillation History of congestive heart failure History of cardiomyopathy ICD (implantable cardioverter-defibrillator) in place Surgical History Hx of colonoscopy History of eye surgery Hx of rotator cuff surgery History of permanent cardiac pacemaker placement Family History Father No problems noted. Mother No problems noted. Sister CAD (coronary artery disease) Social History Household Members: None Housing: House Do you presently have visiting nurse or other home services: No Alcohol intake: never Comment: n/a Patient Tobacco Use Status: Current everyday Tobacco user Tobacco use type: Cigarette Cigarettes Per Day: 3 e-Cigarette/Vaping Use: Never Used service: No Office Procedures Cardiac Device Check Cardiac Device Check Details: Remote ICD report generated 02/24/2025. ICD function is adequate [id number] Cardiac Interrogation, implant defibrillator w/interim Procedure code (CPT) selection complete Assessment & Plan Assessment & Plan (1) ICD (implantable cardioverter-defibrillator) in place: Comment: Reviewed note 04/30/23 Code(s): Z95.810 - Presence of automatic (implantable) cardiac defibrillator Category: Medical Plan: See above Coding Level of Care Code Procedure Only Diagnoses ICD (implantable cardioverter-defibrillator) in place Z95.810 CPT Codes Cardiac Device Check - Cardiac Device 13: [id number] Cardiac Interrogation, implant defibrillator w/interim ([id number])
== END ==
PROVIDERS: PCP Family Medicine; Visit Provider Internal Medicine Cardiovascular Disease
DX: Z45.02 Encounter for adjustment and management of automatic implantable cardiac defibrillator (principal)
CPT/HCPCS: 93295

== ENCOUNTER → 2025-04-14 15:20 | Outpatient (BNV) | payer MEDICARE, MEDICAID, SELFPAY | PROVIDERS: PCP Family Medicine; Visit Provider Internal Medicine Cardiovascular Disease | DX: Z45.02 Encounter for adjustment and management of automatic implantable cardiac defibrillator (principal) | CPT/HCPCS: 93297 ==